=== PATIENT | female | born 1940 | race Caucasian/White ===

== ENCOUNTER 2016-09-20 17:58 | Inpatient (IN) ==
--- NOTE | 2016-09-20 18:03 | Emergency Department Note ---
Disposition Clinical Impression: Diabetes mellitus type 2 in obese, Weakness, ESRD (end stage renal disease) on dialysis, Cough, Hyperkalemia, Frail elderly, Anemia, Hypotension, Pulmonary congestion, Abnormal EKG Disposition: Admitted As Inpatient Referrals: NO,PCP [Non-Partnered Physician] - Forms: ED Satisfaction Letter General Adult HPI - General Chief complaint: ED Upper Respiratory Infection Stated complaint: cough Time Seen by Provider: 09/20/16 18:02 - History of Present Illness HPI Narrative: 76-year-old female reports to the emergency department complaining of coughing and general weakness. She has been seen twice outpatient for the cough, she was placed on antibiotics, she reports they are unhelpful. He patient is elderly, diabetic, is on dialysis, and lives alone at home. She reports she was so weak today she could barely walk. There is no history of unilateral arm or leg weakness or numbness. No slurred speech confusion or syncope. There is no history of coughing of blood or chest pain. She describes some midepigastric abdominal discomfort without vomiting or diarrhea. He patient describes chronic lower extremity swelling. There is no history of bleeding or urinary problems or fever. She does not usually wear oxygen at home. The patient came in by EMS for evaluation. - Related Data Home Medications Medication Instructions Recorded Confirmed Allopurinol [Zyloprim] 100 mg PO QAM 12/30/14 01/10/15 Aspirin 81 mg PO QAM 12/30/14 01/10/15 Insulin NPH Hum/Reg Insulin Hm 20 - 30 unit SQ BID 12/30/14 01/10/15 [Novolin 70-30 100 Unit/ml Vial] Levothyroxine [Synthroid] 125 mcg PO QAM 12/30/14 01/10/15 Pantoprazole Sodium 40 mg PO QAM 12/30/14 01/10/15 Pravastatin Sodium [Pravachol] 80 mg PO QPM 12/30/14 01/10/15 Diazepam [Valium] 5 mg PO QPM 01/01/15 01/10/15 Gabapentin [Neurontin] 600 mg PO QPM 01/01/15 01/10/15 Doxycycline Hyclate [Doxycycline 100 mg PO BID 09/20/16 09/20/16 Hyclate] Sevelamer [Renvela] mg PO AD 09/20/16 levoFLOXacin [Levofloxacin] 500 mg PO Q48H 09/20/16 09/20/16 Allergies Allergy/AdvReac Type Severity Reaction Status Date / Time amitriptyline [From Triavil] Allergy See Verified 01/01/15 13:15 Comments azithromycin [From Zithromax] Allergy Difficulty Verified 01/01/15 13:15 Breathing Cortisone Allergy Rash Verified 01/01/15 13:15 perphenazine [From Triavil] Allergy See Verified 01/01/15 13:15 Comments tape Allergy Rash Uncoded 01/01/15 13:15 All systems ED: reviewed and negative except as stated. Past Medical History - Past Medical History Medical history: Reports: atrial fibrillation, cancer, diabetes, dialysis, GI bleed, hypertension, renal disease, thyroid disease, other Surgical history: Reports: appendectomy, cholecystectomy, hip replacement, hysterectomy, other Psychiatric history: Reports: no psych history - Social History Smoking Status: Unknown if ever smoked Smokeless Tobacco Status: No Alcohol use: Reports: none Drug use: Reports: none Physical Exam - General Limitations: no limitations General appearance: alert, in no apparent distress - Head Head exam: atraumatic, normocephalic, normal inspection - Eye Eye exam: Present: normal appearance, PERRL, EOMI. Absent: scleral icterus, conjunctival injection - ENT ENT exam: normal exam, normal oropharynx, mucous membranes moist, TM's normal bilaterally, normal external ear exam - Neck Neck exam: Present: normal inspection, full ROM, trachea midline. Absent: tenderness - Respiratory Respiratory exam: Present: prolonged expiratory phase. Absent: normal lung sounds bilaterally, respiratory distress, wheezes, accessory muscle use - Cardiovascular Cardiovascular exam: Present: regular rate, normal rhythm, normal heart sounds - Abdominal Exam Abdominal exam: Present: soft, tenderness, normal bowel sounds. Absent: distention, guarding, rebound, rigidity, pulsatile mass Abdominal tenderness: Present: epigastrium, mild - Extremities Exam Extremities exam: Present: full ROM, normal capillary refill, pedal edema. Absent: tenderness, joint swelling, calf tenderness - Expanded Lower Extremity Exam Lower leg exam: Absent: Homans' sign Neurovascular/Tendon exam: Present: normal capillary refill. Absent: motor deficit, sensory deficit, tendon deficit, extremity cold to touch, pallor - Neurological Exam Neurological exam: Present: alert, oriented X3, CN II-XII intact. Absent: motor sensory deficit - Psychiatric Psychiatric exam: Present: normal affect, normal mood - Skin Skin exam: Present: warm, dry, intact, normal color, other (Minor excoriations left leg without evidence of lee cellulitis.). Absent: rash, cyanosis, diaphoresis, erythema, pallor, mottled Course Vital Signs Temperature 98.2 F 09/20/16 17:59 Pulse Rate 52 09/20/16 17:59 Respiratory Rate 18 09/20/16 17:59 Blood Pressure 99/47 09/20/16 17:59 O2 Sat by Pulse Oximetry 98 09/20/16 17:59 Temperature 98.2 F 09/20/16 17:59 Pulse Rate 53 09/20/16 20:21 Respiratory Rate 18 09/20/16 20:48 Blood Pressure 92/60 09/20/16 20:21 O2 Sat by Pulse Oximetry 93 09/20/16 20:48 Oxygen Delivery Oxygen Delivery Room Air Medical Decision Making - MDM Narrative Medical decision making narrative: The patient is elderly and she lives alone at home, she reports she was so weak she can barely walk, he has multiple medical comorbidities including end-stage renal disease on dialysis, diabetes, and atrial fibrillation, it is noted that she had missed her dialysis today. Her potassium levels are 6.3. She was treated for hyperkalemia in the ED. She has seen outpatient providers twice recently. This is her third visit. Based on her age, multiple comorbidities, weakness, and hyperkalemia I thought the patient would be best served being admitted to the hospital. She is currently stable. I reviewed the case with the hospitalist on-call who has accepted the patient to their care. - Lab Data Lab results reviewed: Yes I reviewed the patient's lab results. Result diagrams: 09/20/16 18:48 09/20/16 18:48 Lab Results 09/20/16 09/20/16 09/20/16 Range/Units 18:48 18:48 18:48 WBC 7.9 (4.3-11.1) K/mcL RBC 3.27 L (3.82-4.97) M/mcL Hgb 11.0 L (11.5-15.4) g/dL Hct 34.7 L (35.3-44.9) % MCV 106.1 H (83.0-100.0) fL MCH 33.6 H (28.0-33.3) pg MCHC 31.7 (31.6-35.5) g/dL RDW 13.5 (11.5-14.5) % Plt Count 141 (140-400) K/mcL MPV 10.5 (9.4-12.4) fL Immature Gran % 0.4 (0-4) % Seg Neutrophils % 70.8 % Lymphocytes % 20.4 % Monocytes % 6.1 % Eosinophils % 2.0 % Basophils % 0.3 % Neutrophils # 5.6 (1.6-8.9) K/mcL Lymphocytes # 1.6 (0.6-4.6) K/mcL Monocytes # 0.5 (0.0-1.3) K/mcL Eosinophils # 0.2 (0.0-0.6) K/mcL Basophils # 0.0 (0.0-0.2) K/mcL PT (9.4-12.1) Seconds INR APTT (26.0-36.0) Seconds Sodium 133 L (136-145) mEq/L Potassium 6.3 H (3.5-4.5) mEq/L Chloride 91 L (98-109) mEq/L Carbon Dioxide 25 (19-29) mEq/L BUN 64 H (7-20) mg/dL Creatinine 8.88 H (0.57-1.11) mg/dL Est GFR ( Amer) 5 L (> 60) Est GFR (Non-Af Amer) 4 L (> 60) BUN/Creatinine Ratio 7 (6-26) Glucose 126 H (70-99) mg/dL Calculated Osmolality 296 (280-300) Lactic Acid 1.1 (0.5-2.2) mmol/L Calcium 10.0 (8.6-10.8) mg/dL Magnesium 2.0 (1.6-2.6) mg/dL Total Bilirubin 0.6 (0.2-1.2) mg/dL Direct Bilirubin 0.4 (0.0-0.5) mg/dL Indirect Bilirubin 0.2 (0.0-1.2) mg/dL AST 20 (5-34) Units/L ALT 13 (0-55) Units/L Alkaline Phosphatase 134 H (38-126) Units/L Troponin I (0-0.03) ng/mL C-Reactive Protein 21 H (Less than 5) mg/L B-Natriuretic Peptide (0-100) pg/mL Serum Total Protein 7.5 (6.0-8.3) g/dL Albumin 3.4 L (3.5-5.0) g/dL Globulin 4.1 H (2.4-3.5) g/dL Albumin/Globulin Ratio 0.8 L (1.1-2.2) Lipase 58 (8-78) Units/L 09/20/16 09/20/16 09/20/16 Range/Units 18:48 18:48 18:48 WBC (4.3-11.1) K/mcL RBC (3.82-4.97) M/mcL Hgb (11.5-15.4) g/dL Hct (35.3-44.9) % MCV (83.0-100.0) fL MCH (28.0-33.3) pg MCHC (31.6-35.5) g/dL RDW (11.5-14.5) % Plt Count (140-400) K/mcL MPV (9.4-12.4) fL Immature Gran % (0-4) % Seg Neutrophils % % Lymphocytes % % Monocytes % % Eosinophils % % Basophils % % Neutrophils # (1.6-8.9) K/mcL Lymphocytes # (0.6-4.6) K/mcL Monocytes # (0.0-1.3) K/mcL Eosinophils # (0.0-0.6) K/mcL Basophils # (0.0-0.2) K/mcL PT 12.8 H (9.4-12.1) Seconds INR 1.2 APTT 33.4 (26.0-36.0) Seconds Sodium (136-145) mEq/L Potassium (3.5-4.5) mEq/L Chloride (98-109) mEq/L Carbon Dioxide (19-29) mEq/L BUN (7-20) mg/dL Creatinine (0.57-1.11) mg/dL Est GFR ( Amer) (> 60) Est GFR (Non-Af Amer) (> 60) BUN/Creatinine Ratio (6-26) Glucose (70-99) mg/dL Calculated Osmolality (280-300) Lactic Acid (0.5-2.2) mmol/L Calcium (8.6-10.8) mg/dL Magnesium (1.6-2.6) mg/dL Total Bilirubin (0.2-1.2) mg/dL Direct Bilirubin (0.0-0.5) mg/dL Indirect Bilirubin (0.0-1.2) mg/dL AST (5-34) Units/L ALT (0-55) Units/L Alkaline Phosphatase (38-126) Units/L Troponin I 0.01 (0-0.03) ng/mL C-Reactive Protein (Less than 5) mg/L B-Natriuretic Peptide 868 H (0-100) pg/mL Serum Total Protein (6.0-8.3) g/dL Albumin (3.5-5.0) g/dL Globulin (2.4-3.5) g/dL Albumin/Globulin Ratio (1.1-2.2) Lipase (8-78) Units/L - Radiology Data Radiology results reviewed: Yes I reviewed the patient's radiology results.
[2016-09-20 19:01] LABS: Basophils % 0.3 %; Eosinophils # 0.2 K/mcL (0.0-0.6); Hematocrit 34.7 % (35.3-44.9); Immature Granulocytes % 0.4 % (0-4); Lymphocytes # 1.6 K/mcL (0.6-4.6); Lymphocytes % 20.4 %; Mean Corpuscular HGB Conc 31.7 g/dL (31.6-35.5); Mean Corpuscular Hemoglobin 33.6 pg (28.0-33.3); Mean Corpuscular Volume 106.1 fL (83.0-100.0); Mean Platelet Volume 10.5 fL (9.4-12.4); Monocytes # 0.5 K/mcL (0.0-1.3); Monocytes % 6.1 %; Neutrophils # 5.6 K/mcL (1.6-8.9); Platelet Count 141 K/mcL (140-400); Red Blood Count 3.27 M/mcL (3.82-4.97); Red Cell Distribution Width 13.5 % (11.5-14.5); Segmented Neutrophils % 70.8 %
[2016-09-20 19:07] LABS: INR 1.2; Prothrombin Time 12.8 Seconds (9.4-12.1)
[2016-09-20 19:09] LABS: Activated Partial Thrombo Time 33.4 Seconds (26.0-36.0)
[2016-09-20 19:22] LABS: Albumin 3.4 g/dL (3.5-5.0); Albumin/Globulin Ratio 0.8 (1.1-2.2); Bilirubin,Direct 0.4 mg/dL (0.0-0.5); Bilirubin,Indirect 0.2 mg/dL (0.0-1.2); Bilirubin,Total 0.6 mg/dL (0.2-1.2); Globulin 4.1 g/dL (2.4-3.5); Total Protein 7.5 g/dL (6.0-8.3)
[2016-09-20 19:23] LABS: Potassium 6.3 mEq/L (3.5-4.5)
[2016-09-20] MEDS ORDERED: *HR* Dextrose 50 % in Water (Syg) 50 ML SYRINGE IVP ONE (20:20)
[2016-09-20] MEDS ORDERED: Calcium Gluconate 1,000 MG in D5% in Water 100 ML IVPB ONE (20:20)
[2016-09-20] MEDS ORDERED: Insulin Human Regular 10 UNIT in 0.9 % Sodium Chloride 10 ML IV ONE (20:21)
[2016-09-20] MEDS ORDERED: Albuterol 2.5 MG/3 ML NEBULIZER IH ONE (20:21)
[2016-09-20] MEDS ORDERED: Naloxone 0.4 MG/ML INJ IVP PRN ×2 (20:57→20:59)
--- NOTE | 2016-09-20 22:07 | Internal Med History&Physical ---
Date of Encounter: 09/20/16 Time of Encounter: 22:07 Assessment and Plan (1) Hyperkalemia Current visit: Yes Status: Acute this is related to her ESRD and missed HD, she received medication in the ER, we will follow BMP and nephrology input for HD (2) Productive cough Current visit: Yes Status: Acute pt reports productive cough and other respiratory symptoms ongoing for about a week, she has bilateral lower lobe opacities on CXR that could be fluid vs infiltrate, she has been on 2 different Abx with no improvement in her symptoms , the etiology in this case is most likely viral bronchitis, we will admit for symptom treatment and investigate further, we will check urine strep and legionella antigens, and check out sputum Gram stain and c/s, check procalcitonin, if elevated we will treat with Abx (3) ESRD (end stage renal disease) on dialysis Current visit: Yes Status: Chronic she is on HD MWF, missed today and seems fluid overloaded both clinically and on imaging, we will get nephrology to weigh in regarding HD, (4) Diabetes mellitus type 2 in obese Current visit: Yes Status: Chronic Hx of type 2 DM on insulin at home, most recent A1c was in 02/2016 at 6%, we will do basal bolus regimen here with sliding scale for coverage, will recheck A1c (5) Hypothyroidism Current visit: Yes Status: Chronic we will continue her home regimen Qualifiers: Hypothyroidism type: acquired Qualified Code(s): E03.9 - Hypothyroidism, unspecified (6) HTN (hypertension) Current visit: Yes Status: Chronic not on antihypertensives, we will monitor for now, Qualifiers: Hypertension type: essential hypertension Qualified Code(s): I10 - Essential (primary) hypertension (7) Afib Current visit: Yes Status: Chronic stable, not on systemic anticoagulation nor rate control medications, we will continue to monitor Qualifiers: Atrial fibrillation type: paroxysmal Qualified Code(s): I48.0 - Paroxysmal atrial fibrillation Internal Medicine - H&P: HPI Chief complaint: cough Admitted From: Emergency Dept Plans for Post Hospital Care: Home History of present illness: Ms. Ocampo is a 76 year old female with a history of ESRD on HD MWF/HTN/ AFIB was brought in today for persistent cough. She reports that for the past one week she has been unwell with a productive cough of yellow sputum, sometimes the cough is chesty with no sputum production. She denies sick contacts prior to onset of symptoms but has had somewhat subjective chills, dyspnea and dyspnea on exertion. She denies fever, but admits to nausea that began today as well as poor appetite since her symptoms started. She was initially started on Doxycycline by her PCP but due to persistent symptoms she was switched to levofloxacin this past Sunday but she feels that she is increasingly getting worse with generalized weakness and fatigue so she came in today. She has been so weak that she could not go for her regular dialysis session today so she missed it. Past Med Surg Social Fam HX - Past Medical History Medical history: atrial fibrillation, cancer, diabetes, dialysis, GI bleed, hypertension, renal disease, thyroid disease, other Psychiatric history: no psych history - Past Surgical History Surgical History: appendectomy, cholecystectomy, hip replacement, hysterectomy, other (left AVF creation) - Social History Smoking Status: Never smoker Packs per day: but she has been exposed to second hand smoke from her Smokeless Tobacco Status: No Alcohol use: none Drug use: none Current living situation: Home - Independent Activity Level: Independent ambulation Additional social history: she lives at home with family - Additional Family History Additional family history: both parents are , does not know about the father's medical history but mother had SLE and borderline DM, her half brother has kidney disea but not on dialysis Internal Medicine - H&P: Meds Allopurinol [Zyloprim] 100 mg PO QAM 12/30/14 [History] Aspirin 81 mg PO QAM 12/30/14 [History] Insulin NPH Hum/Reg Insulin Hm [Novolin 70-30 100 Unit/ml Vial] 15 - 30 unit SQ BID 12/30/14 [History] Levothyroxine [Synthroid] 125 mcg PO QAM 12/30/14 [History] Pantoprazole Sodium 40 mg PO BID 12/30/14 [History] Pravastatin Sodium [Pravachol] 80 mg PO QPM 12/30/14 [History] Diazepam [Valium] 5 mg PO HS 01/01/15 [History] Gabapentin [Neurontin] 600 mg PO BID PRN 01/01/15 [History] Doxycycline Hyclate [Doxycycline Hyclate] 100 mg PO BID 09/20/16 [History] Sevelamer [Renvela] mg PO AD 09/20/16 [History] levoFLOXacin [Levofloxacin] 500 mg PO Q48H 09/20/16 [History] Allergies amitriptyline [From Triavil] Allergy (Verified 01/01/15 13:15) See Comments "Paralysis of the face" azithromycin [From Zithromax] Allergy (Verified 01/01/15 13:15) Difficulty Breathing Cortisone Allergy (Verified 01/01/15 13:15) Rash perphenazine [From Triavil] Allergy (Verified 01/01/15 13:15) See Comments "Paralysis of the face" tape Allergy (Uncoded 01/01/15 13:15) Rash All Systems PM: A 10-system review of systems was performed and is negative for pertinent findings except as documented above in the HPI. - Constitutional Vitals: Temp Pulse Resp BP Pulse Ox 98.2 F 53 18 111/58 93 09/20/16 17:59 09/20/16 20:21 09/20/16 21:20 09/20/16 21:20 09/20/16 20:48 PHYSICAL EXAMINATION: GENERAL: Adult female, lying in bed with no sign of distress, Alert, HEENT: NC/AT, EOMI, PERRLA, anicteric sclera, normal conjunctiva, supple, clear nares, moist mucous membranes, clear oropharynx, central uvula RESP: mild basal crackles with transmitted sounds from upper airway, good AE bilaterally, no wheeze CARDIO: Normal hearts sounds; S1 and 2, RRR with no murmurs, no JVD, no ankle edema GI: Soft, full, no tenderness, no organomegaly felt, normal bowel sounds heard MUSCULOSKELETAL: grossly normal movements bilaterally, no deformities noted, no calf tenderness, LUE AVF with thrill and bruit NEUROLOGIC: CN 2-12 intact grossly. No motor/sensory deficit appreciated, PSYCHIATRY: AAO x 3. Mood is fair, SKIN: left swenson abrasions from trauma, liver spots also noted Internal Med - H&P Results - Labs CBC & Chem 7: 09/21/16 04:50 09/20/16 18:48 - EKG Data -: EKG Interpreted by Myself - Diagnostic Studies Chest x-ray Status: image reviewed by me
[2016-09-20] MEDS ORDERED: Albuterol 2.5 MG/3 ML NEBULIZER IH PRN (22:30)
[2016-09-20] MEDS: diazePAM 5 MG TABLET PO SCH (23:02)
[2016-09-20] MEDS: Benzonatate 100 MG CAPSULE PO PRN (23:02)
[2016-09-20] MEDS: Gabapentin 300 MG CAPSULE PO PRN (23:05)
[2016-09-20] MEDS ORDERED: *HR* Dextrose 50 % in Water (Syg) 50 ML SYRINGE IVP PRN (23:36)
[2016-09-20] MEDS ORDERED: Dextrose Gel 15 GM PO PRN ×2 (23:36)
[2016-09-20] MEDS ORDERED: D5% in Water 1,000 ML IVC PRN (23:36)
[2016-09-20] MEDS: Insulin LISPRO 300 UNITS/3 ML VIAL SQ SCH (23:45)
[2016-09-21] MEDS: Insulin LISPRO 300 UNITS/3 ML VIAL SQ SCH ×5 (00:59→21:52)
[2016-09-21 05:41] LABS: Hemoglobin A1C 6.8 %
[2016-09-21 05:43] LABS: Basophils % 0.2 %; Eosinophils # 0.1 K/mcL (0.0-0.6); Eosinophils % 1.6 %; Hemoglobin 10.4 g/dL (11.5-15.4); Immature Granulocytes % 0.5 % (0-4); Lymphocytes # 2.1 K/mcL (0.6-4.6); Lymphocytes % 25.5 %; Mean Corpuscular HGB Conc 31.5 g/dL (31.6-35.5); Mean Corpuscular Hemoglobin 34.1 pg (28.0-33.3); Mean Corpuscular Volume 108.2 fL (83.0-100.0); Mean Platelet Volume 10.8 fL (9.4-12.4); Monocytes # 0.5 K/mcL (0.0-1.3); Monocytes % 5.4 %; Neutrophils # 5.6 K/mcL (1.6-8.9); Platelet Count 146 K/mcL (140-400); Red Blood Count 3.05 M/mcL (3.82-4.97); Red Cell Distribution Width 13.6 % (11.5-14.5); Segmented Neutrophils % 66.8 %
[2016-09-21 05:56] LABS: Calcium 9.7 mg/dL (8.6-10.8); Magnesium 2.1 mg/dL (1.6-2.6); Phosphorous 8.3 mg/dL (2.3-4.7)
[2016-09-21 06:01] LABS: Potassium 5.1 mEq/L (3.5-4.5)
[2016-09-21] MEDS: Gabapentin 300 MG CAPSULE PO PRN (08:50)
[2016-09-21] MEDS: Aspirin 81 MG TAB.CHEW PO SCH (08:50)
[2016-09-21] MEDS: Benzonatate 100 MG CAPSULE PO PRN (08:54)
--- NOTE | 2016-09-21 09:20 | Nephrology Consult Note ---
<Feliberto Kong - Last Filed: 09/21/16 11:47> Date of Encounter: 09/21/16 Time of Encounter: 09:20 Assessment and Plan (1) ESRD (end stage renal disease) on dialysis Current Visit: Yes Status: Chronic Patient with known history of ESRD on dialysis MWF. Missed dialysis yesterday, Sunday. BUN 68, Cr 9.41, Potassium 5.1, Phosphorus 8.3, Calcium 9.7 Plan for Hemodialysis later today. Continue monitoring labs. (2) Hyperkalemia Current Visit: Yes Status: Acute Hyperkalemia in patient with ESRD on dialysis. Missed dialysis yesteday, Sunday Potassium 6.3 on arrival to ED, given 30gm kayexylate. Potassium 5.1 this morning. Hyperkalemia due to ESRD. Plan for Hemodialysis later today. Continue to monitor electrolytes. (3) HTN (hypertension) Current Visit: Yes Status: Chronic Bp 85/51, rate 48. Will have nurse recheck vitals, was 100s/60s when I arrived into the room this morning. Low bp at Baseline. Continue per plan of Hospitalist. 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 Continue per Hospitalist plan. 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 Continue home medication for chronic disease management. Qualifiers: Hypothyroidism type: acquired Qualified Code(s): E03.9 - Hypothyroidism, unspecified History of Present Illness - Reason for Consult Consult date: 09/20/16 end stage renal disease Requesting physician: Rickie Evans - Chief Complaint Productive Cough - History of Present Illness Ms. Ocampo is a 76 year old female with history of ESRD on dialysis (MWF- [facility]), hypertension, paroxysmal afib on aspirin, hypothyroidism, and type II diabetes who presented to the ED yesterday with complaint of feeling unwell and with productive worsening cough for the past week. Patient reports associated mild dyspnea, chest congestion, chills, and nausea. Patient was seen at her PCP office and started on doxycycline. Patient reported no improvement and was then started on Levaquin on Sunday. Patient reported continued worsening of symptoms. Patient did not go to Dialysis yesterday. Reports poor appetite for 1 week. CXR was a low lung volume study, revealed persistent vascular congestion and mild cardiomegaly, no focal lung opacity or consolidation (comparison 09/13/16). WBC 7.9, afebrile, nontachycardic, satting at 98% on room air upon arrival. Potassium 6.3 on arrival, was given kayexylate in ED. Nephrology was consulted for Hemodialysis. Patient reports continued productive cough and dyspnea overnight. Upon entering room the patient looks ill and diaphoretic. Patient continues to report some nausea and chills. Patient denies fevers, changes in vision or hearing, vomiting, chest pain or pressure, palpitations, abdominal pain, changes in bowels or bladder, weakness, or loss of sensation. Past Med Surg Social Fam HX - Past Medical History Medical history: atrial fibrillation (on aspirin, no anticoagulation or rate control), cancer, diabetes, dialysis, GI bleed, hypertension, renal disease, thyroid disease (hypothyroidism), other Psychiatric history: no psych history - Past Surgical History Surgical History: appendectomy, cholecystectomy, hip replacement, hysterectomy, other (left AVF creation) - Social History Smoking Status: Never smoker Packs per day: but she has been exposed to second hand smoke from her Smokeless Tobacco Status: No Alcohol use: none Drug use: none Medications and Allergies Allopurinol [Zyloprim] 100 mg PO QAM 12/30/14 [History] Aspirin 81 mg PO QAM 12/30/14 [History] Insulin NPH Hum/Reg Insulin Hm [Novolin 70-30 100 Unit/ml Vial] 15 - 30 unit SQ BID 12/30/14 [History] Levothyroxine [Synthroid] 125 mcg PO QAM 12/30/14 [History] Pantoprazole Sodium 40 mg PO BID 12/30/14 [History] Pravastatin Sodium [Pravachol] 80 mg PO QPM 12/30/14 [History] Diazepam [Valium] 5 mg PO HS 01/01/15 [History] Gabapentin [Neurontin] 600 mg PO BID PRN 01/01/15 [History] Doxycycline Hyclate [Doxycycline Hyclate] 100 mg PO BID 09/20/16 [History] Sevelamer [Renvela] 1,600 mg PO TIDWM 09/20/16 [History] levoFLOXacin [Levofloxacin] 500 mg PO Q48H 09/20/16 [History] Allergies amitriptyline [From Triavil] Allergy (Verified 01/01/15 13:15) See Comments "Paralysis of the face" azithromycin [From Zithromax] Allergy (Verified 01/01/15 13:15) Difficulty Breathing Cortisone Allergy (Verified 01/01/15 13:15) Rash perphenazine [From Triavil] Allergy (Verified 01/01/15 13:15) See Comments "Paralysis of the face" tape Allergy (Uncoded 01/01/15 13:15) Rash Review of Systems Constitutional: chills, fatigue, malaise, weakness, no fever(s), no headache(s) , no night sweats Nose, mouth and throat: as per HPI, no dysphagia, no headache(s), no nasal congestion, no nasal discharge, no neck pain, no sore throat Cardiovascular: as per HPI, dyspnea, no chest pain, no chest pain at rest, no diaphoresis, no edema, no lightheadedness, no palpitations, no pedal edema Respiratory: cough, dyspnea, chest congestion, excessive phlegm production, change in phlegm color, no wheezing, no pain on inspiration, no pain with cough Gastrointestinal: as per HPI, nausea, no abdominal pain, no constipation, no diarrhea, no heartburn, no vomiting Musculoskeletal: as per HPI, no abnormal gait, no neck pain Integumentary: as per HPI, no lesions, no rash, no unusual bruising Neurological: as per HPI, weakness, no abnormal gait, no abnormal hearing, no abnormal speech, no confusion, no dizziness, no headache(s), no syncope Endocrine: as per HPI, fatigue, no palpitations, no polydipsia, no polyphagia, no polyuria Exam - Vital Signs Vital signs: Initial Vital Signs Temp Pulse Resp BP Pulse Ox 98.2 F 52 18 99/47 98 09/20/16 17:59 09/20/16 17:59 09/20/16 17:59 09/20/16 17:59 09/20/16 17:59 Vital Signs - Last 8 Hours Temp Pulse Resp BP Pulse Ox 09/21/16 08:03 98.3 F 48 14 85/51 94 Intake and Output 09/20/16 09/21/16 09/21/16 23:59 07:59 15:59 Intake Total 0 / 0 Output Total 0 / 0 Balance 0 / 0 Intake: Oral 0 / 0 Output: Urine 0 / 0 Other: Stool Size Small Stool Consistency soft formed Stool Color Brown # Voids 1 # Bowel Movements 1 Blood Glucose* 119 114 - General Appearance General appearance: well-developed, appears started age, obese, moderate distress Exam: diaphoretic EENT: PERRL, mucous membranes dry Neck: no JVD, no thyromegaly, no carotid bruit, supple Respiratory: course breath sounds, rhonchi Cardiology: no murmurs, no edema, regular rate, irregular rhythm, normal S1, normal S2 Gastrointestinal: hypoactive bowel sounds, no tenderness, no guarding, obese Integumentary: no rash Additional Comments: warm, diaphroetic Neurologic: no focal deficit, alert and oriented x3, strength 5/5, CN 3-12 intact Musculoskeletal: no deformities, no erythema, no cyanosis, no clubbing Psychiatric: cooperative Results - Lab Results 09/21/16 04:50 09/21/16 04:50 Most recent lab results Calcium 9.7 mg/dL (8.6-10.8) 09/21/16 04:50 Phosphorus 8.3 mg/dL (2.3-4.7) H 09/21/16 04:50 Magnesium 2.1 mg/dL (1.6-2.6) 09/21/16 04:50 Consult Discharge Plan - Plan Referrals: Damaso Francisco DO [Primary Care Provider] - 09/28/16 9:30 am (Web requested 09/20/16) <Ramesh Singleton - Last Filed: 09/22/16 06:20> Date of Encounter: 09/21/16 Exam - Vital Signs Vital signs: Initial Vital Signs Temp Pulse Resp BP Pulse Ox 98.2 F 52 18 99/47 98 09/20/16 17:59 09/20/16 17:59 09/20/16 17:59 09/20/16 17:59 09/20/16 17:59 Vital Signs - Last 8 Hours Temp Pulse Resp BP Pulse Ox 09/22/16 04:21 97.8 F 58 19 105/54 96 09/22/16 00:12 97.6 F 56 19 93/47 92 Intake and Output 09/21/16 09/21/16 09/22/16 15:59 23:59 07:59 Intake Total 940 / 940 30 / 30 Output Total 2099 / 2099 Balance 940 / 940 -2069 / Intake: Oral 340 / 340 30 / 30 Intake, Rinseback and 600 / 600 Flushes Output: Urine 0 / 0 Total Dialysis Output 2099 Other: Meal Lunch Percent of Meal Consumed 25% Weight 102.5 kg Blood Glucose* 115 123 Hemodialysis Net Fluid 517 1500 Removed (mL) Patient Weight 09/22/16 23:59 Weight 102.5 kg Results - Lab Results 09/21/16 04:50 09/21/16 04:50 Most recent lab results Calcium 9.7 mg/dL (8.6-10.8) 09/21/16 04:50 Phosphorus 8.3 mg/dL (2.3-4.7) H 09/21/16 04:50 Magnesium 2.1 mg/dL (1.6-2.6) 09/21/16 04:50 - Attending Attestation I examined this patient and my medical decision-making was reviewed with the PINION STAKER/PA/Advanced Practice Nurse/Resident Physician. I agree with the documented findings, disposition and treatment plan as described except to the extent set forth below. Pt seen and examined well known to me from managing her ESRD with HD admitted with generalized malaise along with productive cough despite therapy. She also missed HD yesterday due to feeling "bad". On presentation her potassium was above 6 requiring kayexalate. Will initiate HD today for 2 hrs with 2k bath and goal UF 1-2kg as tolerated. Will dose with albumin at the start given her history of chronic hypotension. Patient was counselled on the dangers of missing HD treatments including
--- NOTE | 2016-09-21 10:50 | Internal Med Progress Note ---
Date of Encounter: 09/21/16 Time of Encounter: 10:47 - Assessment and plan (1) Dyspnea Current Visit: Yes Status: Acute Assessment and plan: pt says she was told she has acute bronchitis with respiratory symptoms ongoing for about a week, she was seen OP and took 1 day of levoflox. reports no imporvement, CXR shows vascular congestion. no signs of pneumonia or infiltrates, the symptoms may be 2/2 bronchitis along with vascular congestion (ESRD -- missed HD and possible diastolic CHF--moderate DD on last ECHO) will undergo HD today, will repeat CXR tomm, follow procalcitonic level. has no fever or leucocytosis, no indication for antibiotics at this time. Qualifiers: Dyspnea type: unspecified Qualified Code(s): R06.00 - Dyspnea, unspecified (2) ESRD (end stage renal disease) on dialysis Current Visit: Yes Status: Chronic Assessment and plan: renal on board, HD today. (3) Hypothyroidism Current Visit: Yes Status: Chronic Assessment and plan: continue home meds Qualifiers: Hypothyroidism type: acquired Qualified Code(s): E03.9 - Hypothyroidism, unspecified (4) Hyperkalemia Current Visit: Yes Status: Acute Assessment and plan: repeat today is 5.1, 2/2 missed HD. no EKG changes, will continu eto monitor after HD. (5) HTN (hypertension) Current Visit: Yes Status: Chronic Assessment and plan: BP borderline low. continue to monitor. Qualifiers: Hypertension type: essential hypertension Qualified Code(s): I10 - Essential (primary) hypertension (6) Afib Current Visit: Yes Status: Chronic Assessment and plan: stable, not on systemic anticoagulation nor rate control medications, we will continue to monitor Qualifiers: Atrial fibrillation type: paroxysmal Qualified Code(s): I48.0 - Paroxysmal atrial fibrillation (7) Diabetes Current Visit: Yes Status: Acute Qualifiers: Diabetes mellitus type: type 2 Diabetes mellitus complication status: with kidney complications Diabetes mellitus complication detail: with chronic kidney disease Diabetes mellitus buttermaker continuous churn insulin use: with buttermaker continuous churn use Chronic kidney disease stage: on chronic dialysis Qualified Code(s): E11.22 - Type 2 diabetes mellitus with diabetic chronic kidney disease; N18.6 - End stage renal disease; Z79.4 - FPC (current) use of insulin; Z99.2 - Dependence on renal dialysis - Subjective Interval history: Patient seen at the bedside, reports feeling weak and that she has chronic cough. Denies any chest pain, has exertional dyspnea. Missed hemodialysis yesterday, renal has been consulted. Plan for hemodialysis today. - Constitutional Vitals: Temp Pulse Resp BP Pulse Ox 98.3 F 48 14 85/51 94 09/21/16 08:03 09/21/16 08:03 09/21/16 08:03 09/21/16 08:03 09/21/16 08:03 General appearance: Present: A&O X 3, no acute distress Exam: GENERAL: Adult female, lying in bed with no sign of distress, Alert, HEENT: NC/AT, EOMI, PERRLA, anicteric sclera, normal conjunctiva, supple, clear nares, moist mucous membranes, clear oropharynx, central uvula RESP: b/l basal coarse crackles and conducted sounds, no wheezing. CARDIO: Normal hearts sounds; S1 and 2, RRR with no murmurs, no JVD, no ankle edema GI: Soft, full, no tenderness, no organomegaly felt, normal bowel sounds heard MUSCULOSKELETAL: grossly normal movements bilaterally, no deformities noted, no calf tenderness, LUE AVF with thrill and bruit NEUROLOGIC: CN 2-12 intact grossly. No motor/sensory deficit appreciated, PSYCHIATRY: AAO x 3. Mood is fair, SKIN: left swenson abrasions from trauma, Internal Medicine: Result - Labs CBC & Chem 7: 09/21/16 04:50 09/21/16 04:50 Labs: Short CBC 09/21/16 Range/Units 04:50 WBC 8.3 (4.3-11.1) K/mcL Hgb 10.4 L (11.5-15.4) g/dL Hct 33.0 L (35.3-44.9) % Plt Count 146 (140-400) K/mcL Neutrophils # 5.6 (1.6-8.9) K/mcL BMP 09/21/16 04:50 Sodium 133 L Potassium 5.1 H D Chloride 90 L Carbon Dioxide 19 BUN 68 H Creatinine 9.41 H Glucose 109 H Calcium 9.7 - ABG Interpretation ABG results: PT/INR, D-dimer PT 12.8 Seconds (9.4-12.1) H 09/20/16 18:48 Consult Discharge Plan - Plan Referrals: Damaso Francisco DO [Primary Care Provider] - 09/28/16 9:30 am (Web requested 09/20/16)
[2016-09-21] MEDS ORDERED: Albumin 25% 12.5gm/50mL 12.5 GM/50 ML IV.SOLN IVPB PRN (11:41)
[2016-09-21] MEDS ORDERED: 0.9 % Sodium Chloride 250 ML IVC PRN (11:41)
[2016-09-21] MEDS ORDERED: 0.9 % Sodium Chloride 1,000 ML PRIME SCH (11:45)
[2016-09-21] MEDS ORDERED: Albumin 25% 12.5gm/50mL 25.0 GM/100 ML IV.SOLN ONE (11:52)
[2016-09-21] MEDS ORDERED: 0.9 % Sodium Chloride 2,000 ML ONE (11:53)
--- NOTE | 2016-09-21 15:31 | Electrocardiograph Report ---
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
[2016-09-21 16:21] LABS: Hepatitis B Surface Antigen Nonreactive (Nonreactive)
[2016-09-21] MEDS: *HR* Heparin 5,000 UNIT/ML VIAL SQ SCH ×2 (16:47→21:42)
[2016-09-21 19:45] LABS: Adenovirus Not Detected (Not Detect); Coronavirus 229E Not Detected (Not Detect); Coronavirus HKU1 Not Detected (Not Detect); Coronavirus NL63 Not Detected (Not Detect); Coronavirus OC43 Not Detected (Not Detect); Human Metapneumovirus Not Detected (Not Detect); Human Rhinovirus/Enterovirus Not Detected (Not Detect); Influenza A Subtype 2009 H1 Not Detected (Not Detect); Influenza A Untypeable Not Detected (Not Detect); Influenza B Not Detected (Not Detect); Parainfluenza Virus 1 Not Detected (Not Detect); Parainfluenza Virus 2 Not Detected (Not Detect); Parainfluenza Virus 3 ***DETECTED*** (Not Detect)
[2016-09-21 19:46] LABS: Bordetella Pertussis Not Detected (Not Detect); Chlamydophila pneumoniae Not Detected (Not Detect); Mycoplasma pneumoniae Not Detected (Not Detect); Parainfluenza Virus 4 Not Detected (Not Detect); Respiratory Syncytial Virus Not Detected (Not Detect)
[2016-09-21] MEDS ORDERED: Gabapentin 300 MG CAPSULE PO SCH (21:00)
[2016-09-21] MEDS: diazePAM 5 MG TABLET PO SCH (21:42)
[2016-09-22] MEDS: Benzonatate 100 MG CAPSULE PO PRN (04:02)
[2016-09-22] MEDS: Aspirin 81 MG TAB.CHEW PO SCH (06:18)
[2016-09-22] MEDS: *HR* Heparin 5,000 UNIT/ML VIAL SQ SCH ×2 (06:19→16:58)
[2016-09-22] MEDS ORDERED: Albumin 25% 12.5gm/50mL 12.5 GM/50 ML IV.SOLN IVPB PRN (07:00)
[2016-09-22] MEDS ORDERED: 0.9 % Sodium Chloride 250 ML IVC PRN (07:00)
--- NOTE | 2016-09-22 07:53 | Nephrology Progress Note ---
Date of Encounter: 09/22/16 Time of Encounter: 07:52 - Assessment and Plan (1) ESRD (end stage renal disease) on dialysis Current Visit: Yes Status: Chronic Patient with known history of ESRD on dialysis MWF. Underwent partial Hemodialysis yesterday. BUN 47, Cr 7.41, Potassium 4.3 Plan for Hemodialysis with albumin today. Okay for discharge today. (2) Hyperkalemia Current Visit: Yes Status: Resolved Resolved. Potassium 4.3 this morning. (3) HTN (hypertension) Current Visit: Yes Status: Chronic Bp 98/45, rate 60. Low normal baseline. Continue monitoring. Continue per plan of hospitalist. Qualifiers: Hypertension type: essential hypertension Qualified Code(s): I10 - Essential (primary) hypertension (4) Diabetes Current Visit: Yes Status: Acute Known history of type II diabetes on retirement insulin and with ESRD on dialysis. Glucose 140 Continue monitor labs. Continue per Hospitalist plan. 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 Continues to report cough, chest congestion, and mild shortness of breath. Patient denies fevers, chills, sweats (though appears diaphoretic), headaches, nausea, vomiting, chest pain, abdominal pain, changes in bowels or bladder, weakness, or loss of sensation. Patient underwent partial hemodialysis yesterday, parainfluenza positive. Objective - Vital Signs Vital signs: Vital Signs Temp Pulse Resp BP Pulse Ox 09/22/16 07:07 98.2 F 60 20 98/45 92 09/22/16 04:21 97.8 F 58 19 105/54 96 09/22/16 00:12 97.6 F 56 19 93/47 92 09/21/16 21:30 97.7 F 66 15 87/48 94 09/21/16 17:35 97.9 F 18 109/52 09/21/16 17:20 99/41 05/11/17 17:05 101/49 09/21/16 16:45 101/42 09/21/16 16:35 98/43 09/21/16 16:20 101/40 09/21/16 16:05 107/53 09/21/16 15:50 106/62 09/21/16 15:35 126/52 09/21/16 15:20 98.1 F 18 106/40 09/21/16 11:24 97.7 F 46 16 86/55 96 09/21/16 08:03 98.3 F 48 14 85/51 94 Intake and Output 09/21/16 09/21/16 09/22/16 15:59 23:59 07:59 Intake Total 940 / 940 30 / 30 Output Total 2099 / 2099 Balance 940 / 940 -2069 / -2069 Intake: Oral 340 / 340 30 / 30 Intake, Rinseback and 600 / 600 Flushes Output: Urine 0 / 0 Total Dialysis Output 2099 Other: Meal Lunch Percent of Meal Consumed 25% Weight 102.5 kg Blood Glucose* 115 123 150 Hemodialysis Net Fluid 517 1500 Removed (mL) Patient Weight 09/22/16 23:59 Weight 102.5 kg - General Appearance General appearance: Present: well-developed, well-nourished, appears started age , obese Exam: no acute distress, diaphoretic EENT: Present: PERRL, mucous membranes moist, hearing intact, vision intact Neck: Present: no JVD, no thyromegaly, no carotid bruit, supple Respiratory: Present: course breath sounds, rhonchi Cardiology: Present: no murmurs, no edema, regular rate, irregular rhythm, normal S1, normal S2 Dialysis Vascular Access: Arteriovenous Fistula (LUE) thrill: Yes bruit: Yes Gastrointestinal: Present: normoactive bowel sounds, no tenderness, no guarding Integumentary: Present: no rash Additional Comments: warm, diaphoretic Neurologic: Present: no focal deficit, alert and oriented x3, strength 5/5, CN 3 -12 intact Musculoskeletal: Present: no deformities, no erythema, no cyanosis, no clubbing Psychiatric: Present: mood/affect appropriate, cooperative - Lab 09/22/16 08:19 09/22/16 08:19 Most recent lab results Calcium 9.7 mg/dL (8.6-10.8) 09/21/16 04:50 Phosphorus 8.3 mg/dL (2.3-4.7) H 09/21/16 04:50 Magnesium 2.1 mg/dL (1.6-2.6) 09/21/16 04:50 Consult Discharge Plan - Plan Instructions: Dextromethorphan (By mouth), Diabetes Mellitus Type 2 in Adults ( DC), Weakness (GEN) Referrals: Damaso Francisco DO [Primary Care Provider] - 09/28/16 9:30 am (Web requested 09/20/16) Prescriptions: GuaiFENesin/Dextromethorphan [Robitussin/Dm] 10 ml PO Q6HR PRN 10 Days PRN Reason: Cough
[2016-09-22] MEDS: Insulin LISPRO 300 UNITS/3 ML VIAL SQ SCH ×3 (08:12→17:36)
[2016-09-22 08:27] LABS: Basophils % 0.2 %; Eosinophils # 0.2 K/mcL (0.0-0.6); Eosinophils % 2.3 %; Hematocrit 32.3 % (35.3-44.9); Hemoglobin 10.1 g/dL (11.5-15.4); Immature Granulocytes % 0.4 % (0-4); Lymphocytes # 1.4 K/mcL (0.6-4.6); Mean Corpuscular HGB Conc 31.3 g/dL (31.6-35.5); Mean Corpuscular Hemoglobin 34.1 pg (28.0-33.3); Mean Corpuscular Volume 109.1 fL (83.0-100.0); Mean Platelet Volume 10.6 fL (9.4-12.4); Monocytes # 0.4 K/mcL (0.0-1.3); Monocytes % 5.1 %; Neutrophils # 6.3 K/mcL (1.6-8.9); Platelet Count 135 K/mcL (140-400); Red Blood Count 2.96 M/mcL (3.82-4.97); Red Cell Distribution Width 13.6 % (11.5-14.5)
[2016-09-22 08:39] LABS: Calcium 9.8 mg/dL (8.6-10.8); Potassium 4.3 mEq/L (3.5-4.5)
[2016-09-22 08:40] LABS: Hepatitis B Surface Antibody 185.88 mIU/mL
[2016-09-22] MEDS ORDERED: GuaiFENesin/Dextromethorphan TABLET PO SCH (09:00)
--- NOTE | 2016-09-22 10:08 | Discharge Summary ---
Date of Encounter: 09/22/16 Time of Encounter: 10:06 - Discharge Diagnosis (1) Dyspnea Priority: Primary Status: Acute Qualifiers: Dyspnea type: unspecified Qualified Code(s): R06.00 - Dyspnea, unspecified (2) ESRD (end stage renal disease) on dialysis Priority: Secondary Status: Chronic (3) Hypothyroidism Priority: Secondary Status: Chronic Qualifiers: Hypothyroidism type: acquired Qualified Code(s): E03.9 - Hypothyroidism, unspecified (4) Hyperkalemia Priority: Primary Status: Resolved (5) HTN (hypertension) Priority: Secondary Status: Chronic Qualifiers: Hypertension type: essential hypertension Qualified Code(s): I10 - Essential (primary) hypertension (6) Afib Priority: Secondary Status: Chronic Qualifiers: Atrial fibrillation type: paroxysmal Qualified Code(s): I48.0 - Paroxysmal atrial fibrillation (7) Diabetes Priority: Secondary Status: Acute Qualifiers: Diabetes mellitus type: type 2 Diabetes mellitus complication status: with kidney complications Diabetes mellitus complication detail: with chronic kidney disease Diabetes mellitus fdc insulin use: with fdc use Chronic kidney disease stage: on chronic dialysis Qualified Code(s): E11.22 - Type 2 diabetes mellitus with diabetic chronic kidney disease; N18.6 - End stage renal disease; Z79.4 - 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 insulin; Z99.2 - Dependence on renal dialysis - Discharge Medications Prescriptions: GuaiFENesin/Dextromethorphan [Robitussin/Dm] 10 ml PO Q6HR PRN 10 Days PRN Reason: Cough Home Medications: Allopurinol [Zyloprim] 100 mg PO QAM 12/30/14 [History] Aspirin 81 mg PO QAM 12/30/14 [History] Insulin NPH Hum/Reg Insulin Hm [Novolin 70-30 100 Unit/ml Vial] 15 - 30 unit SQ BID 12/30/14 [History] Levothyroxine [Synthroid] 125 mcg PO QAM 12/30/14 [History] Pantoprazole Sodium 40 mg PO BID 12/30/14 [History] Pravastatin Sodium [Pravachol] 80 mg PO QPM 12/30/14 [History] Diazepam [Valium] 5 mg PO HS 01/01/15 [History] Gabapentin [Neurontin] 600 mg PO BID PRN 01/01/15 [History] Sevelamer [Renvela] 1,600 mg PO TIDWM 09/20/16 [History] GuaiFENesin/Dextromethorphan [Robitussin/Dm] 10 ml PO Q6HR PRN 10 Days 09/22/16 [Rx] Allergies/Adverse Reactions: Allergies amitriptyline [From Triavil] Allergy (Verified 01/01/15 13:15) See Comments "Paralysis of the face" azithromycin [From Zithromax] Allergy (Verified 01/01/15 13:15) Difficulty Breathing Cortisone Allergy (Verified 01/01/15 13:15) Rash perphenazine [From Triavil] Allergy (Verified 01/01/15 13:15) See Comments "Paralysis of the face" tape Allergy (Uncoded 01/01/15 13:15) Rash Date of admission: 09/21/16 00:28 Primary care physician: Damaso Francisco, Consults: 09/21/16 11:45 Consult to Dialysis [CONS] ONCE 09/22/16 07:00 Consult to Dialysis [CONS] ONCE 09/23/16 07:00 Consult to Dialysis [CONS] ONCE Discharging clinician: Kwan Riley Anticipated date of discharge: 09/22/16 - Patient Status Disposition: Home Health Service Condition: Fair Functional capacity at discharge: independent ambulation Overall status at discharge: patient is back to baseline - Discharge Instructions Instructions: Dextromethorphan (By mouth), Diabetes Mellitus Type 2 in Adults ( DC), Weakness (GEN) Follow Up With: Damaso Francisco DO [Primary Care Provider] - 09/28/16 9:30 am (Web requested 09/20/16) - Diet and Activity Activity: resume usual activities as tolerated Diet: advance to your usual diet Interval History: Ms. Ocampo is a 76 year old female with a history of ESRD on HD MWF/HTN/ AFIB presented to ED for persistent cough and generalized weakness, missed HD as she was too weak to go to HD. she was admitted and underwent HD that day, nephrology was consulted and followed inpatient. viral respiratory panel was checked and it is positive for para influenzae. CXR does not show any pneumonia or infiltrates. she improved clinically and is being dc today in stable condition. she will follow up with renal as OP for maintenance HD. Hospital course: Ms. Ocampo is a 76 year old female Time spent discussing smoking cessation with patient: more than 10 minutes - Time Spent with Patient Total time spent providing and/or coordinating discharge services: Greater than 30 minutes - Constitutional Vitals: Temp Pulse Resp BP Pulse Ox 98.2 F 60 20 98/45 92 09/22/16 07:07 09/22/16 07:07 09/22/16 07:07 09/22/16 07:07 09/22/16 07:07 General appearance: Present: A&O X 3, no acute distress Exam: GENERAL: Adult female, lying in bed with no sign of distress, Alert, HEENT: NC/AT, EOMI, PERRLA, anicteric sclera, normal conjunctiva, supple, clear nares, moist mucous membranes, clear oropharynx, central uvula RESP: good AE bilaterally, no wheeze, crepitation. CARDIO: Normal hearts sounds; S1 and 2, RRR with no murmurs, no JVD, no ankle edema GI: Soft, full, no tenderness, no organomegaly felt, normal bowel sounds heard MUSCULOSKELETAL: grossly normal movements bilaterally, no deformities noted, no calf tenderness, LUE AVF with thrill and bruit NEUROLOGIC: CN 2-12 intact grossly. No motor/sensory deficit appreciated, PSYCHIATRY: AAO x 3. Mood is fair, SKIN: left swenson abrasions from trauma, liver spots also noted
--- NOTE | 2016-09-22 10:20 | Nephrology Progress Note ---
Date of Encounter: 09/22/16 Time of Encounter: 09:50 - Assessment and Plan (1) ESRD (end stage renal disease) on dialysis Current Visit: Yes Status: Chronic HD today for fluid removal and clearance. Targeting 2-3 kg over 3hr instead of a shorter treatment d/t the pt's pronounced chronic hypotension. Will have to utilize Albumin 25mg IV while on HD today. Cough/URI as per primary Agreeable with D/C today. (2) Hyperkalemia Current Visit: Yes Status: Resolved Improving with HD (3) Productive cough Current Visit: Yes Status: Acute As per primary (4) Anemia in CKD (chronic kidney disease) Current Visit: No Status: Chronic Goal Hgb is 10-11. Subjective Principal diagnosis: URI Interval history: Pt was S/E. She did not affirm CP, but has an ongoing cough with recent findings of Influenza per pt. She did not affirm N/V/D. Objective - Vital Signs Vital signs: Vital Signs Temp Pulse Resp BP Pulse Ox 09/22/16 07:07 98.2 F 60 20 98/45 92 09/22/16 04:21 97.8 F 58 19 105/54 96 09/22/16 00:12 97.6 F 56 19 93/47 92 09/21/16 21:30 97.7 F 66 15 87/48 94 09/21/16 17:35 97.9 F 18 109/52 09/21/16 17:20 99/41 09/21/16 17:05 101/49 09/21/16 16:45 101/42 09/21/16 16:35 98/43 09/21/16 16:20 101/40 09/21/16 16:05 107/53 09/21/16 15:50 106/62 09/21/16 15:35 126/52 09/21/16 15:20 98.1 F 18 106/40 09/21/16 11:24 97.7 F 46 16 86/55 96 Intake and Output 09/21/16 09/22/16 09/22/16 23:59 07:59 15:59 Intake Total 30 / 30 290 / 290 Output Total 2099 0 / 0 Balance -2069 / 290 / 290 Intake: Oral 30 / 30 290 / 290 Output: Urine 0 / 0 0 / 0 Total Dialysis Output 2099 Other: Meal Breakfast Percent of Meal Consumed 100% Stool Size Small Stool Consistency formed Stool Color Brown # Bowel Movements 1 Weight 102.5 kg Blood Glucose* 123 150 Hemodialysis Net Fluid 1500 Removed (mL) Patient Weight 09/22/16 23:59 Weight 102.5 kg - General Appearance General appearance: Present: well-developed, well-nourished, appears started age , obese EENT: Present: ATNC, PERRL, mucous membranes moist Neck: Present: supple Respiratory: Present: clear Cardiology: Present: edema (trace b/l LE pedal edema), regular rate, regular rhythm, normal S1, normal S2 Dialysis Vascular Access: Arteriovenous Fistula (LUE) thrill: Yes bruit: Yes Gastrointestinal: Present: normoactive bowel sounds, no tenderness, no guarding Integumentary: Present: no rash, warm and dry Neurologic: Present: no focal deficit, no asterixis, alert and oriented x3 Musculoskeletal: Present: no deformities, no erythema Psychiatric: Present: mood/affect appropriate, cooperative - Lab 09/22/16 08:19 09/22/16 08:19 Most recent lab results Calcium 9.8 mg/dL (8.6-10.8) 09/22/16 08:19 Phosphorus 8.3 mg/dL (2.3-4.7) H 09/21/16 04:50 Magnesium 2.1 mg/dL (1.6-2.6) 09/21/16 04:50 Consult Discharge Plan - Plan Instructions: Dextromethorphan (By mouth), Diabetes Mellitus Type 2 in Adults ( DC), Weakness (GEN) Referrals: Damaso Francisco DO [Primary Care Provider] - 09/28/16 9:30 am (Web requested 09/20/16) Prescriptions: GuaiFENesin/Dextromethorphan [Robitussin/Dm] 10 ml PO Q6HR PRN 10 Days PRN Reason: Cough
--- NOTE | 2016-09-22 12:03 | Physician Discharge Referral ---
Home Health/Hosp Referral Info Transfer to: Home Health Attending Provider: silvia ramirez - Diagnosis (1) Dyspnea Status: Acute (2) ESRD (end stage renal disease) on dialysis Status: Chronic (3) Hypothyroidism Status: Chronic (4) Hyperkalemia Status: Resolved (5) HTN (hypertension) Status: Chronic (6) Afib Status: Chronic (7) Diabetes Status: Acute - Respiratory Orders Smoking Cessation: Smoking cessation has been advised. For more information, call the [employer] Tobacco Quit Line at 6-369-GYQY-NOW. - Diet/Nutrition Diet/Nutrition Orders: Regular - Activity Activity Orders: Up ad maria de jesus - Services Needed Following services are medically necessary services: Nursing, Home Health Aide, Physical Therapy, Occupational Therapy - Transfer Medications Prescriptions: GuaiFENesin/Dextromethorphan [Robitussin/Dm] 10 ml PO Q6HR PRN 10 Days PRN Reason: Cough Home Medications: Allopurinol [Zyloprim] 100 mg PO QAM 12/30/14 [History] Aspirin 81 mg PO QAM 12/30/14 [History] Insulin NPH Hum/Reg Insulin Hm [Novolin 70-30 100 Unit/ml Vial] 15 - 30 unit SQ BID 12/30/14 [History] Levothyroxine [Synthroid] 125 mcg PO QAM 12/30/14 [History] Pantoprazole Sodium 40 mg PO BID 12/30/14 [History] Pravastatin Sodium [Pravachol] 80 mg PO QPM 12/30/14 [History] Diazepam [Valium] 5 mg PO HS 01/01/15 [History] Gabapentin [Neurontin] 600 mg PO BID PRN 01/01/15 [History] Sevelamer [Renvela] 1,600 mg PO TIDWM 09/20/16 [History] GuaiFENesin/Dextromethorphan [Robitussin/Dm] 10 ml PO Q6HR PRN 10 Days 09/22/16 [Rx] Allergies/Adverse Reactions: Allergies amitriptyline [From Triavil] Allergy (Verified 01/01/15 13:15) See Comments "Paralysis of the face" azithromycin [From Zithromax] Allergy (Verified 01/01/15 13:15) Difficulty Breathing Cortisone Allergy (Verified 01/01/15 13:15) Rash perphenazine [From Triavil] Allergy (Verified 01/01/15 13:15) See Comments "Paralysis of the face" tape Allergy (Uncoded 01/01/15 13:15) Rash Certification: Further, I certify that my clinical findings support that this patient is homebound (i.e. absences from home require considerable and taxing effort and are for medical reasons or adventist services or infrequently or short duration when for other reasons) because: Homebound Reason: Patient requires assistance of a person or device to safely leave home Attestation: My signature below is to certify that this patient is under my care and that I, or nurse practitioner, or a physician's assistant office manager working with me, has a face-to -face encounter with this patient.
[2016-09-22] MEDS ORDERED: 0.9 % Sodium Chloride 2,000 ML ONE (15:01)
[2016-09-22 17:09] VITALS: BP 119/66
== END 2016-09-22 20:24 | disposition home health service (06) | DRG 640 ==
LOC: 2ANU 17:58 → EMEROO 17:58 → 2ANU 21:21
PROVIDERS: ADMIT Internal Medicine; ATTEND Internal Medicine

== ENCOUNTER 2017-03-30 17:40 | Inpatient (IN) ==
[2017-03-30] MEDS ORDERED: 0.9 % Sodium Chloride 500 ML IVC ONE ×2 (18:19→19:09)
[2017-03-30] MEDS ORDERED: D5 IVPB ONE (18:20)
[2017-03-30] MEDS ORDERED: Vancomycin 750 MG in D5% in Water 250 ML IVPB ONE ×2 (18:20→18:52)
[2017-03-30] MEDS ORDERED: TAZOBACTAM IVPB ONE (18:20)
[2017-03-30] MEDS ORDERED: PIPERACILLIN IVPB ONE (18:20)
[2017-03-30] MEDS ORDERED: WATER IVPB ONE (18:20)
[2017-03-30 18:46] LABS: Basophils % 0.2 %; Eosinophils # 0.1 K/mcL (0.0-0.6); Eosinophils % 0.5 %; Hematocrit 35.2 % (35.3-44.9); Hemoglobin 10.6 g/dL (11.5-15.4); Immature Granulocytes % 0.6 % (0-4); Lymphocytes # 0.4 K/mcL (0.6-4.6); Lymphocytes % 2.8 %; Mean Corpuscular HGB Conc 30.1 g/dL (31.6-35.5); Mean Corpuscular Hemoglobin 32.3 pg (28.0-33.3); Mean Corpuscular Volume 107.3 fL (83.0-100.0); Mean Platelet Volume 10.5 fL (9.4-12.4); Monocytes # 0.8 K/mcL (0.0-1.3); Monocytes % 5.3 %; Neutrophils # 13.4 K/mcL (1.6-8.9); Platelet Count 180 K/mcL (140-400); Red Blood Count 3.28 M/mcL (3.82-4.97); Red Cell Distribution Width 16.1 % (11.5-14.5); Segmented Neutrophils % 90.6 %
[2017-03-30 18:52] LABS: INR 1.3; Prothrombin Time 13.7 Seconds (9.4-12.1)
[2017-03-30 18:55] LABS: Activated Partial Thrombo Time 28.9 Seconds (26.0-36.0)
[2017-03-30] MEDS ORDERED: Piperacillin/Tazobactam 4.5 GM in D5% in Water (Mini-Bag+) 100 ML IVPB ONE (19:00)
[2017-03-30 19:01] LABS: Alanine Aminotransferase 60 Units/L (0-55); Albumin 2.9 g/dL (3.5-5.0); Albumin/Globulin Ratio 0.7 (1.1-2.2); Alkaline Phosphatase 1167 Units/L (38-126); Aspartate Amino Transferase 121 Units/L (5-34); BUN/Creatinine Ratio 5 (6-26); Bilirubin,Direct 1.6 mg/dL (0.0-0.5); Bilirubin,Indirect 0.7 mg/dL (0.0-1.2); Bilirubin,Total 2.3 mg/dL (0.2-1.2); Blood Urea Nitrogen 16 mg/dL (7-20); Carbon Dioxide 27 mEq/L (19-29); Chloride 97 mEq/L (98-109); Ethanol < 10 mg/dL (0-10); Globulin 4.4 g/dL (2.4-3.5); Glucose 237 mg/dL (70-99); Osmolality,Calculated 297 (280-300); Potassium 3.6 mEq/L (3.5-4.5); Sodium 139 mEq/L (136-145); Total Protein 7.3 g/dL (6.0-8.3); eGFR For African Americans 15 (> 60); eGFR For Non-African Americans 12 (> 60)
--- NOTE | 2017-03-30 19:05 | Emergency Department Note ---
Disposition Clinical Impression: Septic shock, ESRD (end stage renal disease) on dialysis, Altered level of consciousness Leukocytosis Qualifiers: Leukocytosis type: unspecified Qualified Code(s): D72.829 - Elevated white blood cell count, unspecified Hypotension Qualifiers: Hypotension type: unspecified hypotension type Qualified Code(s): I95.9 - Hypotension, unspecified Disposition: Admitted As Inpatient Condition: Fair Time of Disposition: 20:21 General Adult HPI - General Chief complaint: ED General Medical Stated complaint: vomiting Source: EMS Limitations: no limitations Nursing Notes Reviewed: Yes Vital Signs Reviewed: Yes - History of Present Illness HPI Narrative: The patient does have history of end-stage renal disease and today did not complete her dialysis but stopped it because she felt bad and did have diaphoresis and nausea and she presents now with complaint that she has had nausea but no vomiting, she does not feel well however she is not able to give an adequate history secondary to altered level of consciousness. She does not have any pain in the head, neck, chest, abdomen or back. No complaint of fever or breathing problems or blood in the urine or stool but again history is compromised secondary to her altered consciousness. Social history: No smoking or alcohol Pain Scale: 0 - Related Data Home Medications Medication Instructions Recorded Confirmed Allopurinol [Zyloprim] 100 mg PO QAM 12/30/14 03/30/17 Aspirin 81 mg PO QAM 12/30/14 03/30/17 Insulin NPH Hum/Reg Insulin Hm 15 unit SQ BID 12/30/14 03/30/17 [Novolin 70-30 100 Unit/ml Vial] Levothyroxine [Synthroid] 125 mcg PO QAM 12/30/14 03/30/17 Pantoprazole Sodium 40 mg PO BID 12/30/14 03/30/17 Pravastatin Sodium [Pravachol] 80 mg PO QAM 12/30/14 03/30/17 Diazepam [Valium] 5 mg PO HS 01/01/15 03/30/17 Gabapentin [Neurontin] 600 mg PO BID 01/01/15 03/30/17 Benzonatate [Tessalon] 100 mg PO Q8H PRN 03/30/17 03/30/17 Folic Acid/Vit Bcomp,C [Renal 0.8 mg PO QAM 03/30/17 03/30/17 Vitamin Tablet] Loratadine/Pseudoephedrine [[facility] 1 each PO DAILY PRN 03/30/17 03/30/17 Loratadine-D 24Hr Tablet] Oxycodone HCl/Acetaminophen 1 each PO Q6H PRN 03/30/17 03/30/17 [Percocet 5-325 mg Tablet] Allergies Allergy/AdvReac Type Severity Reaction Status Date / Time amitriptyline [From Triavil] Allergy See Verified 01/01/15 13:15 Comments azithromycin [From Zithromax] Allergy Difficulty Verified 01/01/15 13:15 Breathing Cortisone Allergy Rash Verified 01/01/15 13:15 perphenazine [From Triavil] Allergy See Verified 01/01/15 13:15 Comments tape Allergy Rash Uncoded 01/01/15 13:15 Review of Systems: Constitutional: No fever Vision: No blurred vision ENT: No rhinorrhea Respiratory: No cough Allergic: No allergies : No blood in urine GI: No blood in stool Hematologic: No bruising Dermatologic: No skin rash Musculoskeletal: No pain in the extremities Neuro: No numbness of the extremities Note that this history is unreliable secondary to patient's confusion Past Medical History - Past Medical History Medical history: Reports: atrial fibrillation, cancer, diabetes, dialysis, GI bleed, hypertension, renal disease, thyroid disease, other Surgical history: Reports: appendectomy, cholecystectomy, hip replacement, hysterectomy, other (left AVF creation) Psychiatric history: Reports: no psych history - Social History Smoking Status: Never smoker Smokeless Tobacco Status: No Alcohol use: Reports: none Drug use: Reports: none Physical Exam CONSTITUTIONAL: Ill appearing, tired-appearing, the patient does not know the year or the month, she is breathing comfortably, no acute distress HEAD: Normocephalic; atraumatic. EYES: PERRL, EOMI, no scleral icterus NOSE: The nose is normal in appearance without rhinorrhea NECK: Supple without rigidity, no JERRI RESP: Normal chest excursion with respiration; breath sounds clear and equal bilaterally; no wheezes, rhonchi, or rales CARD: Regular rhythm, without murmurs, rub or gallop ABD: Non-distended; non-tender, soft, without rigidity, rebound or guarding SKIN: Normal for age and race; warm and dry; no apparent lesions, no rash NEUROLOGICAL: Cranial nerves III-XII are intact. Sensory and motor functions are intact. Strength is 5/5 for flexion and extension in all 4 extremities. Finger to nose testing is equal and normal bilaterally. - General Limitations: no limitations Course Vital Signs Temperature 99.2 F 03/30/17 17:44 Pulse Rate 108 03/30/17 17:44 Respiratory Rate 18 03/30/17 17:44 Blood Pressure 98/59 03/30/17 17:44 O2 Sat by Pulse Oximetry 100 03/30/17 17:44 Temperature 100.9 F H 03/30/17 18:23 Pulse Rate 108 03/30/17 17:44 Respiratory Rate 18 03/30/17 18:23 Blood Pressure 90/63 03/30/17 20:11 O2 Sat by Pulse Oximetry 95 03/30/17 20:11 Oxygen Delivery Oxygen Delivery Room Air Medical Decision Making - MDM Narrative Medical decision making narrative: the patient did feel warm the temperature was rechecked and as it turns her temperature is 100.9 degrees, lactate level is drawn as well as blood cultures and the patient is started on Zosyn and vancomycin and will be admitted to the hospital. I did review the patient's labs. I did review the EKG showing atrial fibrillation with rapid ventricular response with a rate of [address] changes 1905 There is also concern is the patient was initially hypotensive at the pressure 80s and she did receive IV fluids 500 mL will receive more if needed. 1905 I did go back and check on the patient. Her blood pressure is fallen and is now 73 systolic. She denies any dizziness. Interestingly, she is actually more alert and able to give better history than she was initially. States that her dialysis was stopped about 45 minutes early but she said that she did 4-1/2 hours of dialysis. IV has been started and fluids are getting run at this time. This was difficult stick and did take some time. I did evaluate the fistula in the left upper arm and there is a good thrill and no overlying erythema. We do not have a specific source for her infection at this time so could have bacteremia but with his significant hypotension patient will be admitted to intensive care unit and as previously stated Zosyn and vancomycin have been ordered 1931 I did discuss back and reassessed the patient. The blood pressure has improved from 73 systolic and is now 90 systolic. She is continued to receive IV fluids. Patient does not have dizziness. She is conversational. I did speak with the hospitalist who accepts the patient for admission and the patient will go to 2 N. The patient does not make urine so a urine test was not done. Her source of infection could be pulmonary as there are changes on the chest x-ray or she could have bacteremia. I did check the fistula site and it is normal in appearance. Does remain in a critical condition. 2017 I did write for an additional 650 mL of IV fluid which will make a total of 30 mL per kilogram. I also did write for a timed lactate to be done. The patient' s blood pressure was just rechecked which is 91 systolic. She is awake and conversational and does seem improved. 2045 - Medical Records Medical records reviewed: Yes I reviewed the patient's medical records. - Lab Data Lab results reviewed: Yes I reviewed the patient's lab results. Result diagrams: 03/30/17 18:36 03/30/17 18:36 Lab Results 03/30/17 03/30/17 03/30/17 Range/Units 18:36 18:36 18:36 WBC 14.8 H (4.3-11.1) K/mcL RBC 3.28 L (3.82-4.97) M/mcL Hgb 10.6 L (11.5-15.4) g/dL Hct 35.2 L (35.3-44.9) % MCV 107.3 H (83.0-100.0) fL MCH 32.3 (28.0-33.3) pg MCHC 30.1 L (31.6-35.5) g/dL RDW 16.1 H (11.5-14.5) % Plt Count 180 (140-400) K/mcL MPV 10.5 (9.4-12.4) fL Immature Gran % 0.6 (0-4) % Seg Neutrophils % 90.6 % Lymphocytes % 2.8 % Monocytes % 5.3 % Eosinophils % 0.5 % Basophils % 0.2 % Neutrophils # 13.4 H (1.6-8.9) K/mcL Lymphocytes # 0.4 L (0.6-4.6) K/mcL Monocytes # 0.8 (0.0-1.3) K/mcL Eosinophils # 0.1 (0.0-0.6) K/mcL Basophils # 0.0 (0.0-0.2) K/mcL PT 13.7 H (9.4-12.1) Seconds INR 1.3 APTT 28.9 (26.0-36.0) Seconds Sodium 139 (136-145) mEq/L Potassium 3.6 (3.5-4.5) mEq/L Chloride 97 L (98-109) mEq/L Carbon Dioxide 27 (19-29) mEq/L BUN 16 (7-20) mg/dL Creatinine 3.55 H (0.57-1.11) mg/dL Est GFR ( Amer) 15 L (> 60) Est GFR (Non-Af Amer) 12 L (> 60) BUN/Creatinine Ratio 5 L (6-26) Glucose 237 H (70-99) mg/dL Calculated Osmolality 297 (280-300) Lactic Acid (0.5-2.2) mmol/L Calcium 9.0 (8.6-10.8) mg/dL Total Bilirubin 2.3 H (0.2-1.2) mg/dL Direct Bilirubin 1.6 H (0.0-0.5) mg/dL Indirect Bilirubin 0.7 (0.0-1.2) mg/dL AST 121 H (5-34) Units/L ALT 60 H (0-55) Units/L Alkaline Phosphatase 1167 H (38-126) Units/L Ammonia (18-72) mcmol/L Troponin I (0-0.03) ng/mL Serum Total Protein 7.3 (6.0-8.3) g/dL Albumin 2.9 L (3.5-5.0) g/dL Globulin 4.4 H (2.4-3.5) g/dL Albumin/Globulin Ratio 0.7 L (1.1-2.2) Ethyl Alcohol < 10 (0-10) mg/dL 03/30/17 03/30/17 03/30/17 Range/Units 18:36 18:36 18:36 WBC (4.3-11.1) K/mcL RBC (3.82-4.97) M/mcL Hgb (11.5-15.4) g/dL Hct (35.3-44.9) % MCV (83.0-100.0) fL MCH (28.0-33.3) pg MCHC (31.6-35.5) g/dL RDW (11.5-14.5) % Plt Count (140-400) K/mcL MPV (9.4-12.4) fL Immature Gran % (0-4) % Seg Neutrophils % % Lymphocytes % % Monocytes % % Eosinophils % % Basophils % % Neutrophils # (1.6-8.9) K/mcL Lymphocytes # (0.6-4.6) K/mcL Monocytes # (0.0-1.3) K/mcL Eosinophils # (0.0-0.6) K/mcL Basophils # (0.0-0.2) K/mcL PT (9.4-12.1) Seconds INR APTT (26.0-36.0) Seconds Sodium (136-145) mEq/L Potassium (3.5-4.5) mEq/L Chloride (98-109) mEq/L Carbon Dioxide (19-29) mEq/L BUN (7-20) mg/dL Creatinine (0.57-1.11) mg/dL Est GFR ( Amer) (> 60) Est GFR (Non-Af Amer) (> 60) BUN/Creatinine Ratio (6-26) Glucose (70-99) mg/dL Calculated Osmolality (280-300) Lactic Acid 2.0 (0.5-2.2) mmol/L Calcium (8.6-10.8) mg/dL Total Bilirubin (0.2-1.2) mg/dL Direct Bilirubin (0.0-0.5) mg/dL Indirect Bilirubin (0.0-1.2) mg/dL AST (5-34) Units/L ALT (0-55) Units/L Alkaline Phosphatase (38-126) Units/L Ammonia 19 (18-72) mcmol/L Troponin I 0.01 (0-0.03) ng/mL Serum Total Protein (6.0-8.3) g/dL Albumin (3.5-5.0) g/dL Globulin (2.4-3.5) g/dL Albumin/Globulin Ratio (1.1-2.2) Ethyl Alcohol (0-10) mg/dL Critical Care Time Critical Care Time: Yes Total Critical Care Time: 30 Attestation: 30 minutes of critical care time were spent with the patient with significant hypotension, IV fluids, IV Zosyn and vancomycin, pulmonary changes, correlation of test results with the patient with history of end-stage renal disease and alt level of consciousness
[2017-03-30] MEDS ORDERED: SODIUM CHLORIDE IVC ONE (20:44)
--- NOTE | 2017-03-30 22:00 | Internal Med History&Physical ---
<CarltonRuperto ayala - Last Filed: 03/30/17 23:23> Date of Encounter: 03/30/17 Time of Encounter: 21:56 Assessment and Plan (1) Severe sepsis Current visit: Yes Status: Acute - Tachycardic at 108, WBC elevated at 14. - lactic acid 2.0. With evidence of AMS and transaminitis. - Hypotensive in ED, received a total of 1.6 L total of NS. Will give 2 additional L as inaccurate weight suspected - Secondary to possible PNA gallbladder pathology. CXR showed left pleural effusion with opacity, elevated LFTs from baseline. - RUQ US pending. - Will start levaquin, zosyn, vanc. (2) Altered level of consciousness Current visit: Yes Status: Acute - Likely secondary to severe sepsis vs overdiuresis from dialysis today. - Treatment of underlying condition as above. (3) Transaminitis Current visit: Yes Status: Acute - May be secondary to end organ damage from sepsis vs gallbladder pathology. - RUQ US pending. 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 (4) ESRD (end stage renal disease) on dialysis Current visit: Yes Status: Chronic - ESRD on MWF dialysis. Was not able to complete dialysis this afternoon due to nausea. - Continue scheduled dialysis. (5) Afib Current visit: Yes Status: Chronic - AFib with RVR in ED at HR of 108 - Tachycardic likely secondary to infection. - Not on anticoagulation - Will continue home meds and treat underlying infection. Qualifiers: Atrial fibrillation type: paroxysmal Qualified Code(s): I48.0 - Paroxysmal atrial fibrillation (6) DVT prophylaxis Current visit: Yes Status: Acute - Heparin 5000 units q12 Internal Medicine - H&P: HPI Chief complaint: nausea Admitted From: Emergency Dept Plans for Post Hospital Care: Home History of present illness: Ms. Ocampo is a 76 year old female with past medical history of A. fib, ESRD , CHF, hypertension presents to the emergency room from dialysis center with a complaint of "feeling sick". At time of interview, patient appears to be confused and is not believed to be a reliable historian. Unsure of patient's baseline, no family present at bedside. Patient states that she was able to complete some of her dialysis session this afternoon, however she began to feel nauseous but denies any vomiting. She said also states that she has been increasingly short of breath with nonproductive cough and has noticed some chills. She also states she has some abdominal pain in bilateral lower quadrants which has been present for some time. Normal bowel movements most recently 2 days ago. She denies any symptoms of fevers, chest pain, ages in bowel movements, lower extremity edema, new rash, dysuria, dizziness, lightheadedness. She is not oxygen dependent at home. In the emergency department, patient was noted to be febrile at 100.9, atrial fibrillation with RVR at 108, hypotensive in the 70s to 90s systolic blood pressure. After induction well at 3 L of oxygen via nasal cannula. Lab results showed a white count of 14, stable anemia, stable renal function. She was noted to have hyperbilirubinemia as well as elevated liver enzymes. Urinalysis is yet to be collected. Chest x-ray showed left pleural effusion with left basilar opacities possibly representing fluid or atelectasis. Head CT was negative for acute process. Past Med Surg Social Fam HX - Past Medical History Medical history: atrial fibrillation, cancer, diabetes, dialysis, GI bleed, hypertension, renal disease, thyroid disease, other Psychiatric history: no psych history - Past Surgical History Surgical History: appendectomy, cholecystectomy, hip replacement, hysterectomy, other (left AVF creation) - Social History Smoking Status: Never smoker Smokeless Tobacco Status: No Alcohol use: none Drug use: none Internal Medicine - H&P: Meds Allopurinol [Zyloprim] 100 mg PO QAM 12/30/14 [History] Aspirin 81 mg PO QAM 12/30/14 [History] Insulin NPH Hum/Reg Insulin Hm [Novolin 70-30 100 Unit/ml Vial] 15 unit SQ BID 12/30/14 [History] Levothyroxine [Synthroid] 125 mcg PO QAM 12/30/14 [History] Pantoprazole Sodium 40 mg PO BID 12/30/14 [History] Pravastatin Sodium [Pravachol] 80 mg PO QAM 12/30/14 [History] Diazepam [Valium] 5 mg PO HS 01/01/15 [History] Gabapentin [Neurontin] 600 mg PO BID 01/01/15 [History] Benzonatate [Tessalon] 100 mg PO Q8H PRN 03/30/17 [History] Folic Acid/Vit Bcomp,C [Renal Vitamin Tablet] 0.8 mg PO QAM 03/30/17 [History] Loratadine/Pseudoephedrine [Cvs Loratadine-D 24Hr Tablet] 1 each PO DAILY PRN [History] Oxycodone HCl/Acetaminophen [Percocet 5-325 mg Tablet] 1 each PO Q6H PRN [History] 3 Allergy/AdvReac Type Severity Reaction Status Date / Time amitriptyline [From Triavil] Allergy See Verified 01/01/15 13:15 Comments azithromycin [From Zithromax] Allergy Difficulty Verified 01/01/15 13:15 Breathing Cortisone Allergy Rash Verified 01/01/15 13:15 perphenazine [From Triavil] Allergy See Verified 01/01/15 13:15 Comments tape Allergy Rash Uncoded 01/01/15 13:15 All Systems PM: A 10-system review of systems was performed and is negative for pertinent findings except as documented above in the HPI. - Constitutional Constitutional: chills, weakness, no fatigue, no fever(s), no lethargy, no malaise - Cardiovascular Cardiovascular ROS IM: dyspnea, no chest pain, no diaphoresis, no dyspnea on exertion, no edema, no lightheadedness, no syncope - Respiratory Respiratory: cough, dyspnea, no dyspnea on exertion, no excessive phlegm production, no change in phlegm color, no pain with cough - Gastrointestinal Gastrointestinal: abdominal pain, nausea, no constipation, no diarrhea, no hematemesis, no loose stools, no vomiting - Genitourinary Genitourinary: no dysuria - Musculoskeletal Musculoskeletal ROS IM: no muscle weakness, no myalgias, no numbness, no tingling - Integumentary Integumentary IM: no erythema, no rash - Neurological Neurological ROS: no focal weakness, no headache(s), no numbness, no tingling, no weakness - Constitutional Vitals: Temp Pulse Resp BP Pulse Ox 100.9 F H 108 18 90/63 95 03/30/17 18:23 03/30/17 17:44 03/30/17 18:23 03/30/17 20:11 03/30/17 20:11 Exam: Gen.: Vitals noted. No acute distress. Confused appearing. Essential tremors HEENT: PERRL, oropharynx clear, Normocephalic, atraumatic. Moist mucous membranes Cardiac: Irregularly irregular rhythm, no murmur, +S1/S2 Pulmonary: Rales auscultated in bilateral bases as well as left middle, equal chest expansion Abdomen: soft, nontender, BS noted, no guarding MSK: ROM intact, no joint swelling noted Extremities: no BLE edema, nontender calf, no cyanosis or clubbing Neuro: moves all extremities, no focal deficits Psych: Appropriate mood and behavior Internal Med - H&P Results - Labs CBC & Chem 7: 03/30/17 18:36 03/30/17 18:36 <Rolando Sharma - Last Filed: 03/31/17 00:46> Date of Encounter: 03/31/17 Internal Medicine - H&P: HPI History of present illness: Ms. Ocampo is a 76 year old female All Systems PM: A 10-system review of systems was performed and is negative for pertinent findings except as documented above in the HPI. - Constitutional Vitals: Temp Pulse Resp BP Pulse Ox 99.1 F 65 19 89/60 94 03/30/17 23:12 03/31/17 00:20 03/31/17 00:10 03/31/17 00:20 03/31/17 00:20 Internal Med - H&P Results - Labs CBC & Chem 7: 03/30/17 18:36 03/30/17 18:36 - Attending Attestation I have seen and examined this patient on 03/30/17 I have discussed plan of care with the resident physician She is altered at time of review and most hx is obtained from chart, no family member at bedside Admitted and being managed for sever sepsis with hypotension with likely source being pneumonia, Vs GI source as patient has transaminitis and hyperbilirubinemia as well as elevated ALP. Her CXR is suspicious for pneumonia Her symptoms started during hemodialysis and she may be bactremic as well Agree with broad spectrum anitbiotics, additional bolus for body weight and monitor She may need pressors if her blood pressure doesn's improve Assume full code, no family member at bedside Rest of details as in resident physician's documentation
[2017-03-30] MEDS ORDERED: Naloxone 0.4 MG/ML INJ IVP PRN (22:06)
[2017-03-30] MEDS ORDERED: *HR* Morphine 2 MG/ML SYRINGE IVP PRN (22:06)
[2017-03-30] MEDS ORDERED: Acetaminophen 325 MG TABLET PO PRN (22:06)
[2017-03-30] MEDS ORDERED: *HR* HYDROcodone/Acet 5/325 mg TABLET PO PRN (22:06)
[2017-03-30] MEDS ORDERED: Ondansetron 4 MG/2 ML VIAL IVP PRN (22:06)
[2017-03-30] MEDS ORDERED: Benzonatate 100 MG CAPSULE PO PRN (22:08)
[2017-03-30] MEDS ORDERED: D5% in Water 1,000 ML IVC PRN (22:09)
[2017-03-30] MEDS ORDERED: *HR* Dextrose 50 % in Water (Syg) 50 ML SYRINGE IVP PRN (22:09)
[2017-03-30] MEDS ORDERED: Dextrose Gel 15 GM PO PRN ×2 (22:09)
[2017-03-30] MEDS ORDERED: Vancomycin 750 MG in D5% in Water 250 ML IVPB SCH (23:45)
[2017-03-31] MEDS: 0.9 % Sodium Chloride 1,000 ML IVC SCH ×2 (01:09→02:00)
[2017-03-31 01:22] LABS: Basophils % 0.2 %; Eosinophils # 0.1 K/mcL (0.0-0.6); Eosinophils % 0.4 %; Hematocrit 31.6 % (35.3-44.9); Hemoglobin 9.6 g/dL (11.5-15.4); Immature Granulocytes % 0.4 % (0-4); Lymphocytes % 6.3 %; Mean Corpuscular HGB Conc 30.4 g/dL (31.6-35.5); Mean Corpuscular Hemoglobin 32.7 pg (28.0-33.3); Mean Corpuscular Volume 107.5 fL (83.0-100.0); Mean Platelet Volume 10.4 fL (9.4-12.4); Monocytes % 5.8 %; Neutrophils # 14.3 K/mcL (1.6-8.9); Platelet Count 155 K/mcL (140-400); Red Blood Count 2.94 M/mcL (3.82-4.97); Red Cell Distribution Width 16.3 % (11.5-14.5); Segmented Neutrophils % 86.9 %
[2017-03-31 01:34] LABS: Magnesium 1.5 mg/dL (1.6-2.6); Phosphorous 3.4 mg/dL (2.3-4.7)
[2017-03-31 01:37] LABS: Albumin 2.4 g/dL (3.5-5.0); Albumin/Globulin Ratio 0.6 (1.1-2.2); Bilirubin,Total 2.7 mg/dL (0.2-1.2); Calcium 8.6 mg/dL (8.6-10.8); Globulin 3.9 g/dL (2.4-3.5); Potassium 3.7 mEq/L (3.5-4.5); Total Protein 6.3 g/dL (6.0-8.3)
[2017-03-31] MEDS ORDERED: 0.9 % Sodium Chloride 1,000 ML ONE (03:51)
[2017-03-31] MEDS ORDERED: Magnesium Sulfate 2 GM in D5% in Water 100 ML IVPB ONE (04:41)
[2017-03-31] MEDS ORDERED: 0.9 % Sodium Chloride 1,000 ML IVC SCH (04:45)
[2017-03-31] MEDS ORDERED: *HR* Heparin 5,000 UNIT/ML VIAL SQ SCH (06:00)
[2017-03-31] MEDS ORDERED: Piperacillin/Tazobactam 3.375 GM in D5% in Water 50 ML IVPB SCH ×2 (06:00→09:00)
[2017-03-31 06:35] LABS: Vancomycin,Random 10.4 mcg/mL
[2017-03-31] MEDS ORDERED: Vancomycin 1,000 MG in D5% in Water 250 ML IVPB ONE (08:00)
[2017-03-31] MEDS: Insulin LISPRO 300 UNITS/3 ML VIAL SQ SCH ×2 (08:12→13:13)
[2017-03-31] MEDS ORDERED: Levofloxacin 750 MG/150 ML 750 MG/150 ML BAG IVPB SCH (09:00)
[2017-03-31] MEDS ORDERED: Aspirin 81 MG TAB.CHEW PO SCH (09:00)
[2017-03-31 09:10] LABS: Acinetobacter baumannii by PCR Not Detected (Not Detect); Candida albicans by PCR Not Detected (Not Detect); Candida glabrata by PCR Not Detected (Not Detect); Candida krusei by PCR Not Detected (Not Detect); Candida parapsilosis by PCR Not Detected (Not Detect); Candida tropicalis by PCR Not Detected (Not Detect); Enterococcus by PCR Not Detected (Not Detect); Klebsiella oxytoca by PCR Not Detected (Not Detect); Klebsiella pneumoniae by PCR Not Detected (Not Detect); Pseudomonas aeruginosa by PCR Not Detected (Not Detect); Serratia marcescens by PCR Not Detected (Not Detect); Staphylococcus aureus by PCR Not Detected (Not Detect); Streptococcus agalactiae(B)PCR Not Detected (Not Detect); Streptococcus by PCR Not Detected (Not Detect); Streptococcus pneumoniae PCR Not Detected (Not Detect); Streptococcus pyogenes (A) PCR Not Detected (Not Detect); blaKPC Carbapenem-Resist Gene Not Detected (Not Detect)
[2017-03-31 09:11] LABS: Escherichia coli by PCR ***DETECTED*** (Not Detect)
[2017-03-31 10:41] LABS: Chol/HDL Ratio 2.3 (0-4.9)
[2017-03-31 11:05] VITALS: BP 83/48
--- NOTE | 2017-03-31 11:50 | Nephrology Consult Note ---
Date of Encounter: 03/31/17 Time of Encounter: 11:48 Assessment and Plan (1) ESRD (end stage renal disease) on dialysis Status: Chronic HD MWF No need for HD today. Renal dose medications. Renal diet. Received most of her dialysis on Sunday. (2) Anemia in CKD (chronic kidney disease) Status: Chronic Monitor for bleeding. Transfuse as needed. (3) Diabetes Status: Acute Per primary team. 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 She is asymptomatic. She has other signs that indicated sepsis. Per primary team. (5) Severe sepsis Status: Acute Continue antibiotics. Per primary team. History of Present Illness - Reason for Consult Consult date: 03/31/17 end stage renal disease - Chief Complaint ESRD Past Med Surg Social Fam HX - Past Medical History Medical history: atrial fibrillation, cancer, diabetes, dialysis, GI bleed, hypertension, renal disease, thyroid disease, other Psychiatric history: no psych history - Past Surgical History Surgical History: appendectomy, cholecystectomy, hip replacement, hysterectomy, other - Social History Smoking Status: Never smoker Smokeless Tobacco Status: No Alcohol use: none Drug use: none Medications and Allergies Allopurinol [Zyloprim] 100 mg PO QAM 12/30/14 [History] Aspirin 81 mg PO QAM 12/30/14 [History] Insulin NPH Hum/Reg Insulin Hm [Novolin 70-30 100 Unit/ml Vial] 15 unit SQ BID 12/30/14 [History] Levothyroxine [Synthroid] 125 mcg PO QAM 12/30/14 [History] Pantoprazole Sodium 40 mg PO BID 12/30/14 [History] Pravastatin Sodium [Pravachol] 80 mg PO QAM 12/30/14 [History] Diazepam [Valium] 5 mg PO HS 01/01/15 [History] Gabapentin [Neurontin] 600 mg PO BID 01/01/15 [History] Benzonatate [Tessalon] 100 mg PO Q8H PRN 03/30/17 [History] Folic Acid/Vit Bcomp,C [Renal Vitamin Tablet] 0.8 mg PO QAM 03/30/17 [History] Loratadine/Pseudoephedrine [Cvs Loratadine-D 24Hr Tablet] 1 each PO DAILY PRN [History] Oxycodone HCl/Acetaminophen [Percocet 5-325 mg Tablet] 1 each PO Q6H PRN [History] 3 Allergy/AdvReac Type Severity Reaction Status Date / Time amitriptyline [From Triavil] Allergy See Verified 01/01/15 13:15 Comments azithromycin [From Zithromax] Allergy Difficulty Verified 01/01/15 13:15 Breathing Cortisone Allergy Rash Verified 01/01/15 13:15 perphenazine [From Triavil] Allergy See Verified 01/01/15 13:15 Comments tape Allergy Rash Uncoded 01/01/15 13:15 Review of Systems All Systems: reviewed and no additional remarkable complaints except as stated ( as per hpi) Exam - Vital Signs Vital signs: Initial Vital Signs Temp Pulse Resp BP Pulse Ox 99.2 F 108 18 98/59 100 03/30/17 17:44 03/30/17 17:44 03/30/17 17:44 03/30/17 17:44 03/30/17 17:44 Vital Signs - Last 8 Hours Temp Pulse Resp BP Pulse Ox 03/31/17 11:04 97.9 F 67 17 83/48 91 03/31/17 07:15 98.3 F 73 16 91/33 93 03/31/17 05:00 60 96/42 03/31/17 04:00 65 107/31 Intake and Output 03/30/17 03/31/17 03/31/17 23:59 07:59 15:59 Intake Total 1650 / 2000 1100 / 1100 70 / 70 Output Total 0 / 0 Balance 1650 / 2000 1100 / 1100 70 / 70 Intake: IV Fluids 1650 / 1650 1000 / 1000 50 / 50 0.9 % Sodium Chloride 1,000 ML 650 / 650 1000 / 1000 @ 3750 mls/hr IVC .Q16M ELYSSA Rx# :[id number] 0.9 % Sodium Chloride 500 ML @ 1000 / 1000 1875 mls/hr IVC .Q16M ONE Rx#: [id number] Magnesium Sulfate Premix 2gm/ 50 / 50 50mL 2 gm In 50 ml @ 50 mls/hr IVPB ONCE ONE Rx#:[id number] Oral 100 / 100 20 / 20 Output: Urine 0 / 0 Other: Meal NPO Percent of Meal Consumed 0% Stool Size Moderate Stool Consistency formed Stool Characteristics Normal for Patient Stool Color Brown # Bowel Movements 1 Weight 96.2 kg Blood Glucose* 208 156 Patient Weight 03/31/17 23:59 Weight 96.2 kg - General Appearance General appearance: well-developed, well-nourished EENT: ATNC Neck: supple Respiratory: clear Cardiology: no edema, regular rate, regular rhythm Gastrointestinal: normoactive bowel sounds, no tenderness, obese Integumentary: warm and dry Neurologic: alert and oriented x3 Musculoskeletal: no cyanosis Psychiatric: mood/affect appropriate Results - Lab Results 03/31/17 01:08 03/31/17 01:08 Most recent lab results Calcium 8.6 mg/dL (8.6-10.8) 03/31/17 01:08 Phosphorus 3.4 mg/dL (2.3-4.7) 03/31/17 01:08 Magnesium 1.5 mg/dL (1.6-2.6) L 03/31/17 01:08 Consult Discharge Plan - Plan Referrals: Damaso Francisco DO [Primary Care Provider] -
--- NOTE | 2017-03-31 14:32 | Discharge Summary ---
<Leon Bailey - Last Filed: 03/31/17 18:29> Date of Encounter: 03/31/17 Time of Encounter: 08:20 - Discharge Diagnosis (1) Cholangitis due to bile duct calculus with obstruction Priority: Primary Status: Acute Comments: Transferring to [facility] in [place] for ERCP (2) Severe sepsis Priority: Secondary Status: Acute (3) ESRD (end stage renal disease) on dialysis Priority: Secondary Status: Chronic Comments: Hemodialysis dependent; receives HD 3 times a week (4) Renal mass of unknown nature Priority: Secondary Status: Acute Comments: Elucidated incidentally on abdominal CT this morning; will need further evaluation (5) Afib Priority: Secondary Status: Chronic Comments: May need cardio consult for consideration of anticoagulation therapy Qualifiers: Atrial fibrillation type: paroxysmal Qualified Code(s): I48.0 - Paroxysmal atrial fibrillation - Discharge Medications Home Medications: Allopurinol [Zyloprim] 100 mg PO QAM 12/30/14 [History] Aspirin 81 mg PO QAM 12/30/14 [History] Insulin NPH Hum/Reg Insulin Hm [Novolin 70-30 100 Unit/ml Vial] 15 unit SQ BID 12/30/14 [History] Levothyroxine [Synthroid] 125 mcg PO QAM 12/30/14 [History] Pantoprazole Sodium 40 mg PO BID 12/30/14 [History] Pravastatin Sodium [Pravachol] 80 mg PO QAM 12/30/14 [History] Diazepam [Valium] 5 mg PO HS 01/01/15 [History] Gabapentin [Neurontin] 600 mg PO BID 01/01/15 [History] Benzonatate [Tessalon] 100 mg PO Q8H PRN 03/30/17 [History] Folic Acid/Vit Bcomp,C [Renal Vitamin Tablet] 0.8 mg PO QAM 03/30/17 [History] Loratadine/Pseudoephedrine [Cvs Loratadine-D 24Hr Tablet] 1 each PO DAILY PRN [History] Oxycodone HCl/Acetaminophen [Percocet 5-325 mg Tablet] 1 each PO Q6H PRN [History] Allergies/Adverse Reactions: 3 Allergy/AdvReac Type Severity Reaction Status Date / Time amitriptyline [From Triavil] Allergy See Verified 01/01/15 13:15 Comments azithromycin [From Zithromax] Allergy Difficulty Verified 01/01/15 13:15 Breathing Cortisone Allergy Rash Verified 01/01/15 13:15 perphenazine [From Triavil] Allergy See Verified 01/01/15 13:15 Comments tape Allergy Rash Uncoded 01/01/15 13:15 Procedures/tests Complete & Pending: Procedures Performed prior 72 hours Category Date Time Status CT abd pelvis wo no iv no oral [CT] Stat Cat Scan 03/31/17 09:[address] chest wo con [CT] Stat Cat Scan 03/31/17 09:59 Completed US liver [US] Routine Exams 03/30/17 23:20 Ordered Date of admission: 03/30/17 23:00 Primary care physician: Damaso Francisco, Consults: 03/31/17 11:44 Consult to Nephrology [CONS] Routine Consulting Provider: Kidney Piper/YAYO/KAMRAN/CARMINE Reason for Consult: ESRD-HD Time Notified: 10:15 Call Completed: Yes Discharging clinician: Leon Bailey Anticipated date of discharge: 03/31/17 - Patient Status Disposition: Transfer Short-Term Hosp Condition: Fair Functional capacity at discharge: uses cane/walker Overall status at discharge: other (Acutely ill requiring further monitoring, evaluation, and intervention) - Discharge Instructions Follow Up With: Damaso Francisco DO [Primary Care Provider] - - Diet and Activity Activity: as per physical therapy Diet: other (NPO for now) Interval History: Patient has no acute complaints. Blood pressures remain hypotensive with maps in the 60s. Patient expresses desire to eat and to be discharged home. Discussed with patient the need for further evaluation including CT of her abdomen, ultrasound, and further evaluation of lab abnormalities. Met with patients again following reporting of aforementioned studies; patient is status post cholecystectomy many years ago, however, does have what looks to be an obstructing stone within common bile duct stone contributing to cholangitic pattern. Informed patient that she would require transport to a facility that can provide ERCP services; patient prefers to go to [facility] in [place]. Also, incidental renal mass was discovered on the same CT ; discussed finding with patient as well explained that it would need further evaluation likely during her inpatient admission in [place]. Patient wished to speak with her brother about work up and she opted to call brother and have me speak with him. Significance of diagnostic evaluation explained to patient' s brother, Jame, and he expresses understanding. All questions were answered. No further requests or concerns at this time from patient or family. Hospital course: Ms. Ocampo is a 76 year old female with end-stage renal disease who presented to the ED by EMS for severe epigastric abdominal pain. Patient met Sirs criteria in the ED and was hypotensive thus satisfying severe sepsis; see details of work up. Patient was admitted to step down unit with broad scope antibiotic therapy. Right upper quadrant ultrasound was scheduled, however, CT abdomen was obtained in the interim demonstrating actionable findings. CT demonstrated surgically absent gallbladder, however, common bile duct has a large obstructing stone at the ampulla with pericholangitic findings. Patient' s lab evaluation demonstrated cholestatic pattern as well as hyperbilirubinemia. Also was leukocytotic. Nephrology consult was obtained due to MWF-HD schedule and no changes in the schedule were recommended. No on- service GI specialists were available for ERCP, so discussed with patient who agreed to transfer to alternate facility for ERCP as well as ongoing abx. Of note, patient did have preliminary positive blood cultures supportive of gram negative (e.coli by PCR) bacteremia. CT also demonstrated incidental left renal mass concerning for RCC. Patient was informed of all findings and patient was given opportunity to have any questions answered on multiple occasions. Patient continues to be consistently hypotensive but stable in this regard; she clinically appears to be in fair condition and in no distress. Will transfer to [facility] via EMS. - Time Spent with Patient Total time spent providing and/or coordinating discharge services: Less than 30 minutes - Constitutional Vitals: Temp Pulse Resp BP Pulse Ox 97.9 F 67 17 83/48 91 03/31/17 11:04 03/31/17 11:04 03/31/17 11:04 03/31/17 11:04 03/31/17 11:04 Exam: CONSTITUTIONAL: Alert and oriented X3, well-nourished, well appearing, in no apparent distress HEAD: Normocephalic; atraumatic. EYES: PERRL, slight scleral icterus NOSE: The nose is normal in appearance without rhinorrhea RESP: Normal chest excursion with respiration; breath sounds clear and equal bilaterally; no wheezes, rhonchi, or rales CARD: Regular rhythm, without murmurs, rub or gallop ABD: Non-distended; no diffuse tenderness; focal tenderness to epigastric region with modest regarding. No peritoneal signs. No rigidity. No pressure will hepatomegaly. SKIN: Normal for age and race; warm and dry; no apparent lesions <Nicolas Welch - Last Filed: 03/31/17 18:39> Date of Encounter: 03/31/17 - Discharge Diagnosis (1) Sepsis Priority: Primary Status: Acute Qualifiers: Sepsis type: Escherichia coli Qualified Code(s): A41.51 - Sepsis due to Escherichia coli [E. coli] (2) Cholangitis due to bile duct calculus with obstruction Status: Acute (3) Permanent atrial fibrillation Priority: Secondary Status: Chronic (4) HTN (hypertension) Priority: Secondary Status: Chronic Qualifiers: Hypertension type: essential hypertension Qualified Code(s): I10 - Essential (primary) hypertension (5) Hypothyroidism Priority: Secondary Status: Chronic Qualifiers: Hypothyroidism type: acquired Qualified Code(s): E03.9 - Hypothyroidism, unspecified (6) ESRD (end stage renal disease) on dialysis Status: Chronic Procedures/tests Complete & Pending: Procedures Performed prior 72 hours Category Date Time Status CT abd pelvis wo no iv no oral [CT] Stat Cat Scan 03/31/17 09:[address] chest wo con [CT] Stat Cat Scan 03/31/17 09:59 Completed Date of admission: 03/30/17 23:00 Primary care physician: Damaso Francisco, Consults: 03/31/17 11:44 Consult to Nephrology [CONS] Routine Consulting Provider: Kidney Piper/YAYO/KAMRAN/CARMINE Reason for Consult: ESRD-HD Time Notified: 10:15 Call Completed: Yes Hospital course: Ms. Ocampo is a 76 year old female - Time Spent with Patient Total time spent providing and/or coordinating discharge services:40min - Constitutional Vitals: Temp Pulse Resp BP Pulse Ox 97.9 F 67 17 83/48 91 03/31/17 11:04 03/31/17 11:04 03/31/17 11:04 03/31/17 11:04 03/31/17 11:04 - Attending Attestation I examined this patient and my medical decision-making was reviewed with the Resident Physician on 03/31/17 I agree with the documented findings, disposition and treatment plan as described except to the extent set forth below. Ms Ocampo has been admitted for sepsis. She has markedly elevated liver function consistent with obstructive picture. She has previous cholecystectomy. CT of abdomen shows obstructing CBD stone with evidence of cholangitis. Blood cx are positive for E coli. She remains borderline hypotensive. Exam Alert. Comfortable Heart reg Lungs clear Abd tender epigastric I/P Pt with cholangitis Pt to be transferred to [place] for ERCP.
[2017-03-31] MEDS ORDERED: Aminoglycoside Consult 1 EACH MC ONE (15:37)
[2017-03-31] MEDS ORDERED: diazePAM 5 MG TABLET PO SCH (21:00)
[2017-04-01] MEDS ORDERED: Levofloxacin 500 MG/100 ML 500 MG/100 ML BAG IVPB SCH (09:00)
--- NOTE | 2017-04-01 19:35 | Electrocardiograph Report ---
[address] [place], [place] [address] Test Date: 2017-03-30 Pat Name: Marlyn Ocampo Department: 102 Room: 2N01 Gender: F Stay Cutter: Farhan : 1940 Requested By: Elijah Block Order Number: [id number] Reading MD: Elier Sifuentes MD Measurements Intervals [place] Rate: 103 P: DC: 0 QRS: -36 QRSD: 104 T: 111 QT: 356 QTc: 415 Interpretive Statements ATRIAL FIBRILLATION WITH RAPID VENTRICULAR RESPONSE MARKED LEFT AXIS DEVIATION POSSIBLE ANTERIOR MYOCARDIAL INFARCTION BASELINE ARTIFACT, PROBABLY OLD Electronically Signed On 04-01-2017 19:33:41 EST by Elier Sifuentes MD
== END 2017-03-31 15:38 | disposition short-term general hospital (02) | DRG 871 ==
LOC: 2NNU 17:40 → EMEROO 17:40 → 2NNU 22:49
PROVIDERS: ADMIT Internal Medicine; ATTEND Internal Medicine

== ENCOUNTER 2017-04-18 15:00 | Inpatient (IN) ==
[~2017-04-18 15:00] MED LIST: Aminoglycoside Consult 1 EACH MC ONE
--- NOTE | 2017-04-18 15:27 | Emergency Department Note ---
Disposition Clinical Impression: ESRD (end stage renal disease) on dialysis Cellulitis Qualifiers: Site of cellulitis: extremity Site of cellulitis of extremity: lower extremity Laterality: unspecified laterality Qualified Code(s): L03.119 - Cellulitis of unspecified part of limb Fall Qualifiers: Encounter type: initial encounter Qualified Code(s): W19.XXXA - Unspecified fall, initial encounter Disposition: Admitted As Inpatient Condition: Good Time of Disposition: 20:23 General Adult HPI - General Chief complaint: ED Extremity Problem,Nontraumatic Stated complaint: bilateral lower leg swelling and redness Time Seen by Provider: 04/18/17 15:08 Source: patient, EMS Mode of arrival: EMS Limitations: no limitations Nursing Notes Reviewed: Yes Vital Signs Reviewed: Yes - History of Present Illness HPI Narrative: 76-year-old female with end-stage renal disease presenting to the emergency department with chief complaint of chest wall pain. Patient states approximately one week ago she slipped on her floor and landed forward on her chest and under her chin. She denies loss of consciousness. She denies being on any anticoagulation. She states since then she has had some chest wall pain. She states the next day she felt again backwards. She thinks that she tripped over her feet but is not certain. She denies hitting her head or losing consciousness on this occasion as well. Patient gets dialysis Sunday and her aerobics teacher is Dr. Cameron. She went to dialysis today and they were concerned for bilateral lower extremity cellulitis. Patient states she is having no pain in her lower extremities but the redness is new over the past couple of days. She denies any fevers at home. Patient does not make urine. Pain Scale: 3 - Related Data Home Medications Medication Instructions Recorded Confirmed Allopurinol [Zyloprim] 100 mg PO QAM 12/30/14 04/18/17 Aspirin 81 mg PO QAM 12/30/14 04/18/17 Insulin NPH Hum/Reg Insulin Hm 25 - 35 unit SQ BID 12/30/14 04/18/17 [Novolin 70-30 100 Unit/ml Vial] Levothyroxine [Synthroid] 125 mcg PO QAM 12/30/14 04/18/17 Pantoprazole Sodium 40 mg PO BID 12/30/14 04/18/17 Pravastatin Sodium [Pravachol] 80 mg PO QAM 12/30/14 04/18/17 Diazepam [Valium] 5 mg PO HS 01/01/15 04/18/17 Gabapentin [Neurontin] 600 mg PO BID 01/01/15 04/18/17 Folic Acid/Vit Bcomp,C [Renal 0.8 mg PO QAM 03/30/17 04/18/17 Vitamin Tablet] Oxycodone HCl/Acetaminophen 1 tab PO BID PRN 03/30/17 04/18/17 [Percocet 5-325 mg Tablet] Midodrine [ProAmatine] 5 mg PO DAILY 04/18/17 04/18/17 Sevelamer [Renvela] 800 mg PO 04/18/17 Allergies Allergy/AdvReac Type Severity Reaction Status Date / Time amitriptyline [From Triavil] Allergy See Verified 01/01/15 13:15 Comments azithromycin [From Zithromax] Allergy Difficulty Verified 01/01/15 13:15 Breathing Cortisone Allergy Rash Verified 01/01/15 13:15 perphenazine [From Triavil] Allergy See Verified 01/01/15 13:15 Comments tape Allergy Rash Uncoded 01/01/15 13:15 All systems ED: reviewed and negative except as stated. Constitutional: Denies: fever, chills Eyes: Reports: as per HPI ENT ED: Reports: as per HPI Cardiovascular: Reports: chest pain. Denies: palpitations, dyspnea on exertion Respiratory: Denies: cough, dyspnea, wheezes Gastrointestinal: Denies: abdominal pain, nausea, vomiting Genitourinary: Reports: as per HPI Musculoskeletal: Reports: as per HPI Integumentary: Reports: as per HPI Neurological: Denies: numbness, paresthesias Psychiatric: Reports: as per HPI Endocrine: Reports: as per HPI Hematological/Lymphatic: Reports: as per HPI Allergic/Immunologic: Reports: as per HPI Past Medical History - Past Medical History Attestation: Yes The following information was validated with the patient. Medical history: Reports: atrial fibrillation, cancer, diabetes, dialysis, GI bleed, hypertension, renal disease, thyroid disease Surgical history: Reports: appendectomy, cholecystectomy, hip replacement, hysterectomy, other Psychiatric history: Reports: no psych history - Social History Smoking Status: Never smoker Smokeless Tobacco Status: No Alcohol use: Reports: none Drug use: Reports: none Physical Exam - General Limitations: no limitations General appearance: alert, in no apparent distress - Head Head exam: atraumatic, normocephalic, normal inspection - Eye Eye exam: Present: normal appearance. Absent: scleral icterus, conjunctival injection - Neck Neck exam: Present: normal inspection, full ROM. Absent: tenderness, meningismus - Chest Chest inspection: Present: normal inspection, symmetric chest wall rise. Absent : tenderness, rash - Respiratory Respiratory exam: Present: normal lung sounds bilaterally. Absent: respiratory distress, wheezes - Cardiovascular Cardiovascular exam: Present: regular rate, normal rhythm, normal heart sounds - Abdominal Exam Abdominal exam: Present: soft, Non-Tender. Absent: distention, guarding, rebound - Extremities Exam Extremities exam: Present: full ROM, other (Bilateral lower extremity redness with warmth. No discharge or crepitus noted. No tenderness to palpation. Distal pulses bilateral lower extremity 2+. Sensation intact bilateral lower extremities. 5 out of 5 muscle strength bilateral lower extremities.) - Neurological Exam Neurological exam: Present: alert, oriented X3 - Psychiatric Psychiatric exam: Present: normal affect, normal mood - Skin Skin exam: Present: warm, intact Course Course Narrative: 76-year-old female presenting to the emergency department with chief complaint of chest wall pain after a fall one week ago. Patient states the pain is constant at this time. Patient also sent over from dialysis clinic due to bilateral lower extremity cellulitis. They concerned that she may need IV antibiotics. Patient alert and oriented 3 and there is with only complained of chest wall pain. Patient is afebrile here. Disposition pending results of basic lab work completed. We will also start the patient on IV antibiotics. I spoke with the aerobics teacher design printer balloon Dr. Jovel who agrees to have the patient started on vancomycin and admit her for IV antibiotics and further workup. - Reevaluation(s) Reevaluation #1: Patient's lab work has come back and remained stable. No white blood cell count. We will admit the patient at this time for IV antibiotics for bilateral lower extremity cellulitis. Patient's alert and oriented 3 in the room with stable vital signs. She agrees with this plan. I spoke with the hospitalist on -call Dr. Bolaños who agrees to accept the patient. Vital Signs Temperature 97.7 F 04/18/17 15:08 Pulse Rate 64 04/18/17 15:08 Respiratory Rate 18 04/18/17 15:08 Blood Pressure 108/53 04/18/17 15:08 O2 Sat by Pulse Oximetry 95 04/18/17 15:08 Temperature 97.7 F 04/18/17 15:08 Pulse Rate 67 04/18/17 19:15 Respiratory Rate 16 04/18/17 19:15 Blood Pressure 113/50 04/18/17 19:15 O2 Sat by Pulse Oximetry 95 04/18/17 19:15 Oxygen Delivery Oxygen Delivery Room Air Medical Decision Making - Lab Data Result diagrams: 04/18/17 18:45 04/18/17 18:45 Lab Results 04/18/17 04/18/17 04/18/17 Range/Units 18:45 18:45 18:45 WBC 6.9 (4.3-11.1) K/mcL RBC 3.41 L (3.82-4.97) M/mcL Hgb 11.0 L (11.5-15.4) g/dL Hct 36.5 (35.3-44.9) % MCV 107.0 H (83.0-100.0) fL MCH 32.3 (28.0-33.3) pg MCHC 30.1 L (31.6-35.5) g/dL RDW 18.2 H (11.5-14.5) % Plt Count 105 L (140-400) K/mcL MPV 11.1 (9.4-12.4) fL Immature Gran % 0.7 (0-4) % Seg Neutrophils % 67.4 % Lymphocytes % 20.2 % Monocytes % 8.9 % Eosinophils % 2.2 % Basophils % 0.6 % Neutrophils # 4.6 (1.6-8.9) K/mcL Lymphocytes # 1.4 (0.6-4.6) K/mcL Monocytes # 0.6 (0.0-1.3) K/mcL Eosinophils # 0.2 (0.0-0.6) K/mcL Basophils # 0.0 (0.0-0.2) K/mcL Nucleated RBCs/100 WBC 0.3 H (0) /100 WBC Sodium 140 (136-145) mEq/L Potassium 4.0 (3.5-4.5) mEq/L Chloride 99 (98-109) mEq/L Carbon Dioxide 21 (19-29) mEq/L BUN 21 H (7-20) mg/dL Creatinine 4.10 H (0.57-1.11) mg/dL Est GFR ( Amer) 13 L (> 60) Est GFR (Non-Af Amer) 11 L (> 60) BUN/Creatinine Ratio 5 L (6-26) Glucose 198 H (70-99) mg/dL Calculated Osmolality 299 (280-300) Calcium 9.5 (8.6-10.8) mg/dL Magnesium 2.0 (1.6-2.6) mg/dL Total Bilirubin 1.4 H (0.2-1.2) mg/dL Direct Bilirubin 0.6 H (0.0-0.5) mg/dL Indirect Bilirubin 0.8 (0.0-1.2) mg/dL AST 20 (5-34) Units/L ALT 11 (0-55) Units/L Alkaline Phosphatase 443 H (38-126) Units/L Troponin I 0.02 (0-0.03) ng/mL Serum Total Protein 7.3 (6.0-8.3) g/dL Albumin 3.1 L (3.5-5.0) g/dL Globulin 4.2 H (2.4-3.5) g/dL Albumin/Globulin Ratio 0.7 L (1.1-2.2) - EKG Data EKG #1 EKG attestation: Yes I reviewed and interpreted this EKG. EKG results narrative: Atrial fibrillation with PVCs. Left axis deviation. T wave abnormality. Rate of 55 bpm. QRS 97, QTC is 284. When compared to previous EKG completed on new PVCs noted also decrease in rate from 103 to 55.
[2017-04-18] MEDS ORDERED: Vancomycin 1,500 MG in D5% in Water 250 ML IVPB ONE (15:57)
--- NOTE | 2017-04-18 16:03 | Emergency Department Note ---
START Narrative - START START: I examined this patient and my medical decision-making was reviewed with the Resident Physician. I agree with the documented findings, disposition and treatment plan as described except to the extent set forth below. Patient with bilateral lower extremity cellulitis. Patient is a known dialysis patient. Nephrology was okay with starting IV vancomycin. Patient will be admitted.
[2017-04-18 18:54] LABS: Basophils % 0.6 %; Eosinophils # 0.2 K/mcL (0.0-0.6); Eosinophils % 2.2 %; Hematocrit 36.5 % (35.3-44.9); Immature Granulocytes % 0.7 % (0-4); Lymphocytes # 1.4 K/mcL (0.6-4.6); Lymphocytes % 20.2 %; Mean Corpuscular HGB Conc 30.1 g/dL (31.6-35.5); Mean Corpuscular Hemoglobin 32.3 pg (28.0-33.3); Mean Platelet Volume 11.1 fL (9.4-12.4); Monocytes # 0.6 K/mcL (0.0-1.3); Monocytes % 8.9 %; Neutrophils # 4.6 K/mcL (1.6-8.9); Nucleated Red Blood Cells 0.3 /100 WBC (0); Platelet Count 105 K/mcL (140-400); Red Blood Count 3.41 M/mcL (3.82-4.97); Red Cell Distribution Width 18.2 % (11.5-14.5); Segmented Neutrophils % 67.4 %
[2017-04-18 19:17] LABS: Albumin 3.1 g/dL (3.5-5.0); Albumin/Globulin Ratio 0.7 (1.1-2.2); Bilirubin,Direct 0.6 mg/dL (0.0-0.5); Bilirubin,Indirect 0.8 mg/dL (0.0-1.2); Bilirubin,Total 1.4 mg/dL (0.2-1.2); Calcium 9.5 mg/dL (8.6-10.8); Globulin 4.2 g/dL (2.4-3.5); Total Protein 7.3 g/dL (6.0-8.3)
[2017-04-18] MEDS ORDERED: Ondansetron 4 MG/2 ML VIAL IVP PRN (21:14)
[2017-04-18] MEDS ORDERED: Naloxone 0.4 MG/ML INJ IVP PRN (21:14)
[2017-04-18] MEDS ORDERED: Acetaminophen 325 MG TABLET PO PRN (21:14)
--- NOTE | 2017-04-18 21:19 | Internal Med History&Physical ---
Date of Encounter: 04/18/17 Time of Encounter: 21:00 Assessment and Plan (1) Cellulitis Current visit: Yes Status: Acute Acute cellulitis of bilateral lower legs - unclear etiology - patient denies recent injury or insect bite Continue empiric IV Zosyn, IV Vancomycin Cultures - pending Chest x-ray - mild bibasilar effusions, left basilar airspace disease CT head - pending WBC - 6.9 Cardiac telemetry, labs in a.m., monitor closely Qualifiers: Site of cellulitis: extremity Site of cellulitis of extremity: lower extremity Laterality: unspecified laterality Qualified Code(s): L03.119 - Cellulitis of unspecified part of limb (2) ESRD (end stage renal disease) on dialysis Current visit: Yes Status: Chronic ESRD on hemodialysis on Sunday and Fridays Nephrology consult (3) Atrial fibrillation with normal ventricular rate Current visit: Yes Status: Chronic Chronic atrial fibrillation, rate controlled Patient is not on any medications for rate control Anticoagulation was discontinued due to history of GI bleed (4) Diabetes Current visit: Yes Status: Acute Type 2 diabetes mellitus, insulin dependent, hyperglycemia Continue insulin sliding scale, glucose checks Qualifiers: Diabetes mellitus type: type 2 Diabetes mellitus complication status: with kidney complications Diabetes mellitus complication detail: with chronic kidney disease Diabetes mellitus technician terminal and repeater insulin use: with senior living use Chronic kidney disease stage: on chronic dialysis Qualified Code(s): E11.22 - Type 2 diabetes mellitus with diabetic chronic kidney disease; N18.6 - End stage renal disease; Z99.2 - Dependence on renal dialysis; Z99.2 - Dependence on renal dialysis; Z99.2 - Dependence on renal dialysis; N18.6 - End stage renal disease; N18.6 - End stage renal disease; N18.6 - End stage renal disease ; Z79.4 - terminal manager (current) use of insulin; Z79.4 - terminal manager (current) use of insulin; Z79.4 - terminal manager (current) use of insulin; Z79.4 - terminal manager ( current) use of insulin; Z99.2 - Dependence on renal dialysis (5) DVT prophylaxis Current visit: Yes Status: Acute Heparin subcutaneous Internal Medicine - H&P: HPI Chief complaint: Bilateral lower leg swelling Admitted From: Emergency Dept Plans for Post Hospital Care: Home History of present illness: Ms. Ocampo is a 76 year old female with past medical history of ESRD on HD, atrial fibrillation, GI bleed, diabetes, hypertension and CHF. Patient presents to the ED for bilateral lower leg edema and redness. Examined in the room. Patient is awake and alert. Not in any distress. Able to provide all history. No family members at bedside. Patient states she noticed redness over both lower extremities about 2-3 days ago. Symptoms seemed to gradually worsen. She also noticed worsening bilateral leg edema. She denies chest pain or shortness of breath at this time. Patient states she did have a fall about a week ago and had some mild chest wall pain which is now improved. Denies headache or dizziness. No fever. No abdominal pain or vomiting or diarrhea. Bilateral leg edema and redness and no person. Patient was at hemodialysis today and there was concern for cellulitis. Patient was advised to go to ED. No associated symptoms. No other acute complaints. Initial workup in the ED is negative. Chest x-ray does show bibasilar effusions and left basilar atelectasis or pneumonia. Patient is being admitted for acute cellulitis of both lower legs. She will need IV antibiotics. Patient has been explained about her condition and plan of care in detail. She understood and agreed. No unanswered questions. CODE STATUS full code. Past Med Surg Social Fam HX - Past Medical History Medical history: atrial fibrillation, cancer, diabetes, dialysis, GI bleed, hypertension, renal disease, thyroid disease Psychiatric history: no psych history - Past Surgical History Surgical History: appendectomy, cholecystectomy, hip replacement, hysterectomy, other - Social History Smoking Status: Never smoker Smokeless Tobacco Status: No Alcohol use: none Drug use: none Internal Medicine - H&P: Meds Allopurinol [Zyloprim] 100 mg PO QAM 12/30/14 [History] Aspirin 81 mg PO QAM 12/30/14 [History] Insulin NPH Hum/Reg Insulin Hm [Novolin 70-30 100 Unit/ml Vial] 25 - 35 unit SQ BID 12/30/14 [History] Levothyroxine [Synthroid] 125 mcg PO QAM 12/30/14 [History] Pantoprazole Sodium 40 mg PO BID 12/30/14 [History] Pravastatin Sodium [Pravachol] 80 mg PO QAM 12/30/14 [History] Diazepam [Valium] 5 mg PO HS 01/01/15 [History] Gabapentin [Neurontin] 600 mg PO BID 01/01/15 [History] Folic Acid/Vit Bcomp,C [Renal Vitamin Tablet] 0.8 mg PO QAM 03/30/17 [History] Oxycodone HCl/Acetaminophen [Percocet 5-325 mg Tablet] 1 tab PO BID PRN [History] Midodrine [ProAmatine] 5 mg PO DAILY 04/18/17 [History] Sevelamer [Renvela] 800 mg PO 04/18/17 [History] 3 Allergy/AdvReac Type Severity Reaction Status Date / Time amitriptyline [From Triavil] Allergy See Verified 01/01/15 13:15 Comments azithromycin [From Zithromax] Allergy Difficulty Verified 01/01/15 13:15 Breathing Cortisone Allergy Rash Verified 01/01/15 13:15 perphenazine [From Triavil] Allergy See Verified 01/01/15 13:15 Comments tape Allergy Rash Uncoded 01/01/15 13:15 All Systems PM: A 10-system review of systems was performed and is negative for pertinent findings except as documented above in the HPI. - Constitutional Constitutional: fatigue, falls, no fever(s), no weakness - EENT Eyes: no blurry vision - Cardiovascular Cardiovascular ROS IM: edema, no chest pain, no diaphoresis, no dyspnea, no dyspnea on exertion, no lightheadedness, no orthopnea, no palpitations, no syncope - Respiratory Respiratory: no cough, no dyspnea, no hemoptysis, no dyspnea on exertion, no wheezing, no chest congestion - Gastrointestinal Gastrointestinal: no abdominal pain, no bloating, no cramping, no diarrhea, no hematemesis, no hematochezia, no loose stools, no nausea, no vomiting - Musculoskeletal Musculoskeletal ROS IM: no back pain - Neurological Neurological ROS: frequent falls, no abnormal gait, no confusion, no dizziness, no loss of vision, no numbness, no tingling - Constitutional Vitals: Temp Pulse Resp BP Pulse Ox 97.7 F 70 18 96/51 93 04/18/17 15:08 04/18/17 19:30 04/18/17 19:30 04/18/17 19:30 04/18/17 19:30 General appearance: Present: cooperative, A&O X 3, morbidly obese, pleasant, no acute distress, answers questions appropriately - Head Head exam: Present: atraumatic - Eye Eye exam: Present: EOMI - ENT ENT exam: Present: mucous membranes dry - Respiratory Respiratory exam: Present: CTAB. Absent: accessory muscle use, rales, respiratory distress, rhonchi, wheezes, tachypnea - Cardiovascular Cardiovascular exam: Present: irregular rhythm, +S1, +S2 - GI/Abdominal GI/Abdominal exam: Present: soft. Absent: distended, firm, guarding, tenderness - Extremities Exam Extremities exam: Present: pedal edema (Bilateral leg 2+ edema), radial pulses palpable and symmetrical. Absent: calf tenderness, cyanotic Additional comments: Bilateral lower legs extensive erythema - Neurological Exam Neurological exam: Present: alert, oriented X3, no focal deficits. Absent: facial droop, speech deficit Internal Med - H&P Results - Labs CBC & Chem 7: 04/18/17 18:45 04/18/17 18:45
[2017-04-19 04:32] LABS: Basophils % 0.5 %; Eosinophils # 0.2 K/mcL (0.0-0.6); Eosinophils % 3.2 %; Hematocrit 34.6 % (35.3-44.9); Hemoglobin 10.1 g/dL (11.5-15.4); Immature Granulocytes % 0.4 % (0-4); Lymphocytes # 1.5 K/mcL (0.6-4.6); Lymphocytes % 26.8 %; Mean Corpuscular HGB Conc 29.2 g/dL (31.6-35.5); Mean Corpuscular Hemoglobin 32.3 pg (28.0-33.3); Mean Corpuscular Volume 110.5 fL (83.0-100.0); Mean Platelet Volume 11.3 fL (9.4-12.4); Monocytes # 0.6 K/mcL (0.0-1.3); Monocytes % 10.2 %; Neutrophils # 3.3 K/mcL (1.6-8.9); Nucleated Red Blood Cells 0.4 /100 WBC (0); Platelet Count 105 K/mcL (140-400); Red Blood Count 3.13 M/mcL (3.82-4.97); Red Cell Distribution Width 18.2 % (11.5-14.5); Segmented Neutrophils % 58.9 %
[2017-04-19 04:43] LABS: Calcium 9.6 mg/dL (8.6-10.8); Potassium 4.1 mEq/L (3.5-4.5)
[2017-04-19 05:11] LABS: Anisocytosis 2+ (Not Present)
[2017-04-19 05:12] LABS: Macrocytosis Present (Not Present); Platelet Estimate Decreased (Normal)
[2017-04-19] MEDS ORDERED: Vancomycin 1,000 MG in D5% in Water 250 ML IVPB SCH (06:00)
[2017-04-19] MEDS: *HR* Heparin 5,000 UNIT/ML VIAL SQ SCH ×2 (06:06→17:13)
[2017-04-19] MEDS ORDERED: Piperacillin/Tazobactam 3.375 GM/200 ML BAG IVPB SCH (08:00)
--- NOTE | 2017-04-19 08:00 | Internal Med Progress Note ---
Date of Encounter: 04/19/17 Time of Encounter: 08:00 - Assessment and plan (1) ESRD (end stage renal disease) on dialysis Current Visit: Yes Status: Chronic Assessment and plan: Nephrology consulted for HD purposes. M/W/F dialysis (2) Atrial fibrillation with normal ventricular rate Current Visit: Yes Status: Chronic Assessment and plan: Rate controlled. On ASA. No anticoags due to history of bleeding. Normal TSH (3) Diabetes Current Visit: Yes Status: Acute Assessment and plan: Restart NPH home dose and put on SSI. c/w accuchecs. Qualifiers: Diabetes mellitus type: type 2 Diabetes mellitus complication status: with kidney complications Diabetes mellitus complication detail: with chronic kidney disease Diabetes mellitus penitentiary insulin use: with penitentiary use Chronic kidney disease stage: on chronic dialysis Qualified Code(s): E11.22 - Type 2 diabetes mellitus with diabetic chronic kidney disease; N18.6 - End stage renal disease; N18.6 - End stage renal disease; N18.6 - End stage renal disease; N18.6 - End stage renal disease; Z79.4 - laborer marine terminal (current) use of insulin; Z79.4 - residential (current) use of insulin; Z79.4 - laborer marine terminal (current ) use of insulin; Z79.4 - laborer marine terminal (current) use of insulin; Z99.2 - Dependence on renal dialysis; Z99.2 - Dependence on renal dialysis; Z99.2 - Dependence on renal dialysis; Z99.2 - Dependence on renal dialysis (4) Transaminitis Current Visit: No Status: Acute Assessment and plan: ALK phos is elevated but better compared to last stay. She is s/p ERCP at [facility] per patient and had 2 stones extracted. Finished outpatient abx (5) Cellulitis Current Visit: Yes Status: Acute Assessment and plan: B/L which is unusual. No skin tears. Will keep on abx but will down grade to ceftriaxone only. Check LE dopplers r/o DVT. f/u on cultures. Qualifiers: Site of cellulitis: extremity Site of cellulitis of extremity: lower extremity Laterality: unspecified laterality Qualified Code(s): L03.119 - Cellulitis of unspecified part of limb (6) Renal mass of unknown nature Current Visit: No Status: Acute Assessment and plan: Scheduled for surgery Next Sunday at [place] (7) DVT prophylaxis Current Visit: Yes Status: Acute Assessment and plan: heparin SQ - Subjective Interval history: No acute events. Patient is afebrile. Admitted last night with LE cellulites. Remains hemodynamically stable on IV abx. - Constitutional Vitals: Temp Pulse Resp BP Pulse Ox 97.9 F 73 17 92/31 96 04/19/17 06:56 04/19/17 06:56 04/19/17 06:56 04/19/17 06:56 04/19/17 06:56 General appearance: Present: cooperative, A&O X 3, morbidly obese, pleasant, no acute distress, answers questions appropriately Exam: GEN: NAD CVS: RRR. S1, S2, No m/r/g RESP: CTAB ABD: Soft, NT, ND, +BS EXT: 1+ edema. 2+ DP, No rashes but LE with erthema bilaterally NEURO: Nonfocal Internal Medicine: Result - Labs CBC & Chem 7: 04/19/17 03:51 04/19/17 03:51 Labs: Short CBC 04/19/17 Range/Units 03:51 WBC 5.6 (4.3-11.1) K/mcL Hgb 10.1 L (11.5-15.4) g/dL Hct 34.6 L (35.3-44.9) % Plt Count 105 L (140-400) K/mcL Neutrophils # 3.3 (1.6-8.9) K/mcL BMP 04/19/17 03:51 Sodium 139 Potassium 4.1 Chloride 98 Carbon Dioxide 24 BUN 24 H Creatinine 4.73 H Glucose 225 H Calcium 9.6 Consult Discharge Plan - Plan Referrals: Damaso Francisco DO [Primary Care Provider] -
[2017-04-19] MEDS ORDERED: D5% in Water 1,000 ML IVC PRN (08:21)
[2017-04-19] MEDS ORDERED: Dextrose Gel 15 GM PO PRN ×2 (08:21)
[2017-04-19] MEDS ORDERED: *HR* Dextrose 50 % in Water (Syg) 50 ML SYRINGE IVP PRN (08:21)
--- NOTE | 2017-04-19 08:45 | Nephrology Consult Note ---
Date of Encounter: 04/19/17 Time of Encounter: 08:42 Assessment and Plan (1) ESRD (end stage renal disease) on dialysis Current Visit: Yes Status: Chronic Plan for HD tomorrow Continue renal diet Fluid restriction-1.5 liters/day-ordered Patient was recently in [facility] and was discharge quite a bit above her EDW; currently trying to remove the excess fluid in outpatient HD treatments. Difficulty removing fluids as patient's b/p runs low. Strict I/Os-ordered Avoid nephrotoxins if possible Vanco to be dosed by pharmacy Patient is scheduled in [place] next Friday 04/27 for surgery-mass on kidney (2) Cellulitis Current Visit: Yes Status: Acute per primary team Vanco to be dosed by pharmacy Patient has surgery scheduled next Sunday in [place] for removal of mass on kidney Qualifiers: Site of cellulitis: extremity Site of cellulitis of extremity: lower extremity Laterality: unspecified laterality Qualified Code(s): L03.119 - Cellulitis of unspecified part of limb (3) Diabetes Current Visit: Yes Status: Acute per primary team Qualifiers: Diabetes mellitus type: type 2 Diabetes mellitus complication status: with kidney complications Diabetes mellitus complication detail: with chronic kidney disease Diabetes mellitus half-way insulin use: with equipment operator intermodal yard use Chronic kidney disease stage: on chronic dialysis Qualified Code(s): E11.22 - Type 2 diabetes mellitus with diabetic chronic kidney disease; N18.6 - End stage renal disease; Z99.2 - Dependence on renal dialysis; Z99.2 - Dependence on renal dialysis; Z99.2 - Dependence on renal dialysis; N18.6 - End stage renal disease; N18.6 - End stage renal disease; N18.6 - End stage renal disease ; Z79.4 - shelter (current) use of insulin; Z79.4 - equipment operator intermodal yard (current) use of insulin; Z79.4 - shelter (current) use of insulin; Z79.4 - shelter ( current) use of insulin; Z99.2 - Dependence on renal dialysis History of Present Illness - Reason for Consult Consult date: 04/19/17 - Chief Complaint cellulitis, legs; ESRD on dialysis - History of Present Illness Ms. Ocampo is a 76 year old female well known to our practice with a past medical history of ESRD on HD, atrial fibrillation, GI bleed, diabetes, hypertension and CHF. I saw patient yesterday at her outpatient dialysis unit and noticed her bilat legs were very red and warm to touch. Patient stated this started 2-3 days ago. Recent hx of falls, she is working with her PCP and getting phyiscal therapy set up. Patient uses a walker and lives in an assisted living facility. Advised patient to go to ED after her HD treatment yesterday for eval, suspected cellulitis. Patient was admitted for bilat leg cellulitis. Past Med Surg Social Fam HX - Past Medical History Medical history: atrial fibrillation, cancer, diabetes, dialysis, GI bleed, hypertension, renal disease, thyroid disease Psychiatric history: no psych history - Past Surgical History Surgical History: appendectomy, cholecystectomy, hip replacement, hysterectomy, other - Social History Smoking Status: Never smoker Smokeless Tobacco Status: No Alcohol use: none Drug use: none Medications and Allergies Allopurinol [Zyloprim] 100 mg PO QAM 12/30/14 [History] Aspirin 81 mg PO QAM 12/30/14 [History] Insulin NPH Hum/Reg Insulin Hm [Novolin 70-30 100 Unit/ml Vial] 25 - 35 unit SQ BID 12/30/14 [History] Levothyroxine [Synthroid] 125 mcg PO QAM 12/30/14 [History] Pantoprazole Sodium 40 mg PO BID 12/30/14 [History] Pravastatin Sodium [Pravachol] 80 mg PO QAM 12/30/14 [History] Diazepam [Valium] 5 mg PO HS 01/01/15 [History] Gabapentin [Neurontin] 600 mg PO BID 01/01/15 [History] Folic Acid/Vit Bcomp,C [Renal Vitamin Tablet] 0.8 mg PO QAM 03/30/17 [History] Oxycodone HCl/Acetaminophen [Percocet 5-325 mg Tablet] 1 tab PO BID PRN [History] Midodrine [ProAmatine] 5 mg PO DAILY 04/18/17 [History] Sevelamer [Renvela] 1,600 mg PO TIDWM 04/18/17 [History] 3 Allergy/AdvReac Type Severity Reaction Status Date / Time amitriptyline [From Triavil] Allergy See Verified 01/01/15 13:15 Comments azithromycin [From Zithromax] Allergy Difficulty Verified 01/01/15 13:15 Breathing Cortisone Allergy Rash Verified 01/01/15 13:15 perphenazine [From Triavil] Allergy See Verified 01/01/15 13:15 Comments tape Allergy Rash Uncoded 01/01/15 13:15 Review of Systems All Systems: reviewed and no additional remarkable complaints except as stated Constitutional: no chills, no fever(s), no malaise Cardiovascular: no chest pain, no dyspnea, no leg edema Respiratory: no cough, no wheezing Gastrointestinal: no nausea, no vomiting Integumentary: erythema (bilat legs, left greater than right), other (bilat lower legs warm to touch) Neurological: no behavioral changes Exam - Vital Signs Vital signs: Initial Vital Signs Temp Pulse Resp BP Pulse Ox 97.7 F 64 18 108/53 95 04/18/17 15:08 04/18/17 15:08 04/18/17 15:08 04/18/17 15:08 04/18/17 15:08 Vital Signs - Last 8 Hours Temp Pulse Resp BP Pulse Ox 04/19/17 06:56 97.9 F 73 17 92/31 96 04/19/17 03:44 97.3 F L 72 16 94/57 94 Intake and Output 04/18/17 04/19/17 04/19/17 23:59 07:59 15:59 Other: Stool Size Moderate Stool Consistency formed Stool Color Brown # Voids 0 0 # Bowel Movements 0 0 Weight 99.79 kg Blood Glucose* 265 185 - General Appearance General appearance: well-developed, well-nourished, obese EENT: ATNC, mucous membranes moist, hearing intact, vision intact Neck: supple Respiratory: clear Cardiology: no edema, normal S1, normal S2 - Dialysis Access Dialysis Vascular Access: Arteriovenous Fistula Gastrointestinal: no tenderness, no guarding, obese Neurologic: alert and oriented x3 Psychiatric: mood/affect appropriate, cooperative Results - Lab Results 04/19/17 03:51 04/19/17 03:51 Most recent lab results Calcium 9.6 mg/dL (8.6-10.8) 04/19/17 03:51 Magnesium 2.0 mg/dL (1.6-2.6) 04/18/17 18:45 Consult Discharge Plan - Plan Referrals: Damaso Francisco DO [Primary Care Provider] -
[2017-04-19] MEDS: Gabapentin 300 MG CAPSULE PO SCH ×2 (09:26→21:09)
[2017-04-19] MEDS: Aspirin 81 MG TAB.CHEW PO SCH (09:27)
[2017-04-19] MEDS: Renal Vitamin 1 MG CAPSULE PO SCH (09:27)
[2017-04-19] MEDS: Insulin LISPRO 300 UNITS/3 ML VIAL SQ SCH ×4 (09:37→21:09)
[2017-04-19] MEDS: Insulin NPH/REG 70/30 100 UNIT/ML (x5UNIT) SQ SCH ×2 (10:17→16:46)
[2017-04-19] MEDS: cefTRIAXone 1,000 MG in Water for inj. (sterile) 10 ML IVP SCH (14:50)
--- NOTE | 2017-04-19 18:42 | Electrocardiograph Report ---
[place] [id number] Test Date: 2017-04-18 Pat Name: Marlyn Ocampo Department: 103 Room: 2A51 Gender: F Recording Engineer: KESHIA : [id number] Requested By: Shey Rogers Order Number: [id number] Reading MD: Eduard Johnson DO Measurements Intervals [place] Rate: 55 P: MO: 0 QRS: -33 QRSD: 97 T: 127 QT: 294 QTc: 284 Interpretive Statements ATRIAL FIBRILLATION WITH SLOW VENTRICULAR RESPONSE WITH ABERRANT CONDUCTION OR VENTRICULAR PREMATURE COMPLEXES MARKED LEFT AXIS DEVIATION NONSPECIFIC ST-T WAVE ABNORMALITY Electronically Signed On 04-19-2017 18:40:58 EST by Eduard Johnson DO
[2017-04-19] MEDS: diazePAM 5 MG TABLET PO SCH (21:09)
[2017-04-20 03:36] LABS: Basophils % 0.5 %; Eosinophils # 0.3 K/mcL (0.0-0.6); Eosinophils % 4.2 %; Hematocrit 34.4 % (35.3-44.9); Hemoglobin 10.2 g/dL (11.5-15.4); Immature Granulocytes % 0.2 % (0-4); Lymphocytes # 1.9 K/mcL (0.6-4.6); Lymphocytes % 30.8 %; Mean Corpuscular HGB Conc 29.7 g/dL (31.6-35.5); Mean Corpuscular Hemoglobin 32.7 pg (28.0-33.3); Mean Corpuscular Volume 110.3 fL (83.0-100.0); Mean Platelet Volume 10.7 fL (9.4-12.4); Monocytes # 0.6 K/mcL (0.0-1.3); Monocytes % 9.4 %; Neutrophils # 3.4 K/mcL (1.6-8.9); Platelet Count 111 K/mcL (140-400); Red Blood Count 3.12 M/mcL (3.82-4.97); Red Cell Distribution Width 17.9 % (11.5-14.5); Segmented Neutrophils % 54.9 %
[2017-04-20 03:48] LABS: Potassium 4.3 mEq/L (3.5-4.5)
[2017-04-20 04:21] LABS: Anisocytosis 1+ (Not Present); Platelet Estimate Slight Decrease (Normal)
[2017-04-20 04:22] LABS: Macrocytosis Present (Not Present); Polychromasia 1+ (Not Present)
[2017-04-20] MEDS: *HR* Heparin 5,000 UNIT/ML VIAL SQ SCH ×2 (05:58→16:58)
--- NOTE | 2017-04-20 07:41 | Internal Med Progress Note ---
Date of Encounter: 04/20/17 Time of Encounter: 07:40 - Assessment and plan (1) Cellulitis Current Visit: Yes Status: Acute Assessment and plan: B/L which is unusual. No skin tears. c/w ceftriaxone. Negative for DVT. f/u on cultures. Qualifiers: Site of cellulitis: extremity Site of cellulitis of extremity: lower extremity Laterality: unspecified laterality Qualified Code(s): L03.119 - Cellulitis of unspecified part of limb (2) ESRD (end stage renal disease) on dialysis Current Visit: Yes Status: Chronic Assessment and plan: Nephrology consulted for HD purposes. M/W/F dialysis. plans for HD today (3) Transaminitis Current Visit: No Status: Acute Assessment and plan: ALK phos is elevated but better compared to last stay. She is s/p ERCP at [facility] [place] per patient and had 2 stones extracted. Finished outpatient abx. Will check CMP tomorrow (4) Atrial fibrillation with normal ventricular rate Current Visit: Yes Status: Chronic Assessment and plan: Rate controlled. On ASA. No anticoags due to history of bleeding. Normal TSH (5) Diabetes Current Visit: Yes Status: Acute Assessment and plan: c/w NPH home dose as is for now as glucose is elevated after missing last night' s NPH dose. Monitor for hypoglycemia. Encourage PO. c/w SSI. c/w accuchecs. Qualifiers: Diabetes mellitus type: type 2 Diabetes mellitus complication status: with kidney complications Diabetes mellitus complication detail: with chronic kidney disease Diabetes mellitus assisted insulin use: with marine oil terminal superintendent use Chronic kidney disease stage: on chronic dialysis Qualified Code(s): E11.22 - Type 2 diabetes mellitus with diabetic chronic kidney disease; N18.6 - End stage renal disease; Z99.2 - Dependence on renal dialysis; Z99.2 - Dependence on renal dialysis; Z99.2 - Dependence on renal dialysis; N18.6 - End stage renal disease; N18.6 - End stage renal disease; N18.6 - End stage renal disease ; Z79.4 - petroleum terminal plant operator (current) use of insulin; Z79.4 - [facility] (current) use of insulin; Z79.4 - petroleum terminal plant operator (current) use of insulin; Z79.4 - [facility] ( current) use of insulin; Z99.2 - Dependence on renal dialysis (6) Renal mass of unknown nature Current Visit: No Status: Acute Assessment and plan: Scheduled for surgery Next Sunday at [place] (7) DVT prophylaxis Current Visit: Yes Status: Acute Assessment and plan: heparin SQ - Subjective Interval history: No acute events. Patient is afebrile. She had a glucose reading of 70 yesterday and night dose of NPH held. She had no hypoglycemia symptoms, however. - Constitutional Vitals: Temp Pulse Resp BP Pulse Ox 98.5 F 87 16 97/58 94 04/20/17 04:34 04/20/17 04:34 04/20/17 04:34 04/20/17 04:34 04/20/17 04:34 General appearance: Present: cooperative, A&O X 3, morbidly obese, pleasant, no acute distress, answers questions appropriately Exam: GEN: NAD CVS: RRR. S1, S2, No m/r/g RESP: CTAB ABD: Soft, NT, ND, +BS EXT: 1+ edema. 2+ DP, No rashes but LE with erthema bilaterally NEURO: Nonfocal Internal Medicine: Result - Labs CBC & Chem 7: 04/20/17 03:26 04/20/17 03:26 Labs: Short CBC 04/20/17 Range/Units 03:26 WBC 6.2 (4.3-11.1) K/mcL Hgb 10.2 L (11.5-15.4) g/dL Hct 34.4 L (35.3-44.9) % Plt Count 111 L (140-400) K/mcL Neutrophils # 3.4 (1.6-8.9) K/mcL BMP 04/20/17 03:26 Sodium 139 Potassium 4.3 Chloride 98 Carbon Dioxide 23 BUN 41 H D Creatinine 6.27 H Glucose 198 H Calcium 10.0 Consult Discharge Plan - Plan Referrals: Damaso Francisco DO [Primary Care Provider] -
[2017-04-20] MEDS: Renal Vitamin 1 MG CAPSULE PO SCH (08:12)
[2017-04-20] MEDS: cefTRIAXone 1,000 MG in Water for inj. (sterile) 10 ML IVP SCH (08:12)
[2017-04-20] MEDS: Gabapentin 300 MG CAPSULE PO SCH ×2 (08:12→22:20)
[2017-04-20] MEDS: Aspirin 81 MG TAB.CHEW PO SCH (08:13)
[2017-04-20] MEDS: Insulin LISPRO 300 UNITS/3 ML VIAL SQ SCH ×4 (08:15→22:09)
[2017-04-20] MEDS: Insulin NPH/REG 70/30 100 UNIT/ML (x5UNIT) SQ SCH ×2 (10:21→16:57)
--- NOTE | 2017-04-20 15:00 | Nephrology Progress Note ---
Date of Encounter: 04/20/17 Time of Encounter: 11:30 - Assessment and Plan (1) ESRD (end stage renal disease) on dialysis Current Visit: Yes Status: Chronic HD planned today with goal UD of 2-3kg if hemodynamics tolerate Plan to give albumin and midodrine at the beginning of HD Will plan for extra UF tomorrow if needed for fluid overload Lytes WNL Continue renal diet (2) Cellulitis Current Visit: Yes Status: Acute Antibiotics per primary team Qualifiers: Site of cellulitis: extremity Site of cellulitis of extremity: lower extremity Laterality: unspecified laterality Qualified Code(s): L03.119 - Cellulitis of unspecified part of limb Subjective Interval history: Interim events noted, pt admitted for cellulitis. Pt seen and examined with no new complaints. Objective - Vital Signs Vital signs: Vital Signs Temp Pulse Resp BP Pulse Ox 04/20/17 11:02 97.7 F 63 16 120/64 98 04/20/17 08:29 94 04/20/17 07:41 97.7 F 66 18 108/52 94 04/20/17 04:34 98.5 F 87 16 97/58 94 04/19/17 19:40 98.3 F 68 15 95/58 97 04/19/17 17:10 90/50 04/19/17 16:19 98.3 F 63 16 96 Intake and Output 04/19/17 04/20/17 04/20/17 23:59 07:59 15:59 Intake Total 360 / 360 Output Total 0 / 0 Balance 360 / 360 Intake: Oral 360 / 360 Output: Urine 0 / 0 Other: Meal Breakfast Percent of Meal Consumed 75% # Voids 0 0 Weight 100 kg Blood Glucose* 135 211 213 Patient Weight 04/20/17 23:59 Weight 100 kg - General Appearance General appearance: Present: chronically ill (NAD) EENT: Present: ATNC, mucous membranes moist Neck: Present: no JVD, supple Respiratory: Present: clear (ant bilat) Cardiology: Present: edema (LE bilat), normal S1, normal S2 Dialysis Vascular Access: Arteriovenous Fistula thrill: Yes bruit: Yes Gastrointestinal: Present: no tenderness, no guarding, obese Integumentary: Present: warm and dry Neurologic: Present: no focal deficit Musculoskeletal: Present: erythema (LE bilat) Psychiatric: Present: mood/affect appropriate, cooperative - Lab 04/20/17 03:26 04/20/17 03:26 Most recent lab results Calcium 10.0 mg/dL (8.6-10.8) 04/20/17 03:26 Magnesium 2.0 mg/dL (1.6-2.6) 04/18/17 18:45 Consult Discharge Plan - Plan Referrals: Damaso Francisco DO [Primary Care Provider] - 04/30/17 9:30 am (please follow up as schedule...)
[2017-04-20] MEDS ORDERED: Mannitol 25% vial 12.5 GM/50 ML VIAL IVP PRN (16:22)
[2017-04-20] MEDS ORDERED: 0.9 % Sodium Chloride 250 ML IVC PRN (16:22)
[2017-04-20 18:33] LABS: Hepatitis B Surface Antibody 95.83 mIU/mL; Hepatitis B Surface Antigen Nonreactive (Nonreactive)
[2017-04-20] MEDS ORDERED: Albumin 25% 12.5gm/50mL 25.0 GM/100 ML IV.SOLN ONE (20:40)
[2017-04-20] MEDS: diazePAM 5 MG TABLET PO SCH (22:20)
[2017-04-20] MEDS ORDERED: Albumin 25% 12.5gm/50mL 12.5 GM/50 ML IV.SOLN ONE (22:49)
[2017-04-21] MEDS: *HR* Heparin 5,000 UNIT/ML VIAL SQ SCH ×2 (05:49→17:39)
[2017-04-21 06:04] LABS: Basophils % 0.4 %; Eosinophils # 0.2 K/mcL (0.0-0.6); Eosinophils % 2.4 %; Hematocrit 32.4 % (35.3-44.9); Hemoglobin 9.5 g/dL (11.5-15.4); Immature Granulocytes % 0.3 % (0-4); Lymphocytes # 1.3 K/mcL (0.6-4.6); Lymphocytes % 19.5 %; Mean Corpuscular HGB Conc 29.3 g/dL (31.6-35.5); Mean Corpuscular Hemoglobin 32.2 pg (28.0-33.3); Mean Corpuscular Volume 109.8 fL (83.0-100.0); Mean Platelet Volume 11.1 fL (9.4-12.4); Monocytes # 0.5 K/mcL (0.0-1.3); Monocytes % 8.1 %; Neutrophils # 4.6 K/mcL (1.6-8.9); Platelet Count 104 K/mcL (140-400); Red Blood Count 2.95 M/mcL (3.82-4.97); Red Cell Distribution Width 17.9 % (11.5-14.5); Segmented Neutrophils % 69.3 %
[2017-04-21 06:11] LABS: Albumin 3.3 g/dL (3.5-5.0); Albumin/Globulin Ratio 0.9 (1.1-2.2); Bilirubin,Total 1.2 mg/dL (0.2-1.2); Calcium 9.4 mg/dL (8.6-10.8); Globulin 3.6 g/dL (2.4-3.5); Potassium 4.2 mEq/L (3.5-4.5); Total Protein 6.9 g/dL (6.0-8.3)
[2017-04-21] MEDS: Gabapentin 300 MG CAPSULE PO SCH ×2 (08:30→22:24)
[2017-04-21] MEDS: Insulin NPH/REG 70/30 100 UNIT/ML (x5UNIT) SQ SCH ×2 (08:30→17:41)
[2017-04-21] MEDS: Aspirin 81 MG TAB.CHEW PO SCH (08:30)
[2017-04-21] MEDS: Renal Vitamin 1 MG CAPSULE PO SCH (08:30)
[2017-04-21] MEDS: cefTRIAXone 1,000 MG in Water for inj. (sterile) 10 ML IVP SCH (08:30)
[2017-04-21] MEDS: Insulin LISPRO 300 UNITS/3 ML VIAL SQ SCH ×4 (08:30→22:23)
[2017-04-21] MEDS ORDERED: 0.9 % Sodium Chloride 250 ML IVC PRN (09:32)
[2017-04-21] MEDS ORDERED: Albumin 25% 12.5gm/50mL 12.5 GM/50 ML IV.SOLN IVPB PRN (09:32)
[2017-04-21] MEDS ORDERED: Albumin 25% 12.5gm/50mL 12.5 GM/50 ML IV.SOLN ONE (09:43)
[2017-04-21] MEDS ORDERED: 0.9 % Sodium Chloride 1,000 ML PRIME SCH (09:45)
--- NOTE | 2017-04-21 10:04 | Nephrology Progress Note ---
Date of Encounter: 04/21/17 Time of Encounter: 10:40 - Assessment and Plan (1) ESRD (end stage renal disease) on dialysis Current Visit: Yes Status: Chronic HD planned today with goal UD of 2-3kg if hemodynamics tolerate Plan to give albumin and midodrine at the beginning of HD Will plan for extra UF tomorrow if needed for fluid overload Lytes WNL Continue renal diet (2) Cellulitis Current Visit: Yes Status: Acute Antibiotics per primary team Qualifiers: Site of cellulitis: extremity Site of cellulitis of extremity: lower extremity Laterality: unspecified laterality Qualified Code(s): L03.119 - Cellulitis of unspecified part of limb Subjective Interval history: Interim events noted, pt admitted for cellulitis. Pt seen and examined with no new complaints. Objective - Vital Signs Vital signs: Vital Signs Temp Pulse Resp BP Pulse Ox 04/21/17 08:14 104/73 04/21/17 07:15 98.7 F 86 16 58/31 94 04/21/17 05:00 98.3 F 78 16 105/48 92 04/21/17 00:35 97.6 F 16 110/58 04/21/17 00:25 95/54 04/21/17 00:10 103/52 04/20/17 23:55 102/43 04/20/17 23:40 93/54 04/20/17 23:25 104/50 04/20/17 23:10 94/46 04/20/17 22:55 117/58 04/20/17 22:25 132/46 04/20/17 21:55 104/86 04/20/17 21:25 115/56 04/20/17 20:55 97.4 F L 16 118/80 04/20/17 19:04 97.9 F 68 16 87/41 96 04/20/17 17:16 97.6 F 65 20 131/73 96 04/20/17 11:02 97.7 F 63 16 120/64 98 Intake and Output 04/20/17 04/21/17 04/21/17 23:59 07:59 15:59 Intake Total 840 / 840 50 / 50 0 / 0 Output Total 0 / 0 2600 / 2600 0 / 0 Balance 840 / 840 -2550 / -2550 0 / 0 Intake: IV Fluids 50 / 50 Flexbumin 12.5 gm In 50 ml As . 50 / 50 ROUTE .STK-MED ONE Rx#: [id number] Oral 240 / 240 0 / 0 Intake, Rinseback and Flushes 600 / 600 Output: Urine 0 / 0 0 / 0 Total Dialysis (HD) Output 2600 / 2600 Other: Stool Size Moderate Stool Consistency formed Stool Color Brown # Bowel Movements 1 Weight 102.194 kg Blood Glucose* 148 240 Hemodialysis Net Fluid Removed 7 1999 (mL) Patient Weight 04/21/17 23:59 Weight 102.194 kg - Lab 04/21/17 05:45 04/21/17 05:45 Most recent lab results Calcium 9.4 mg/dL (8.6-10.8) 04/21/17 05:45 Magnesium 2.0 mg/dL (1.6-2.6) 04/18/17 18:45 Consult Discharge Plan - Plan Referrals: Damaso Francisco DO [Primary Care Provider] - 04/30/17 9:30 am (please follow up as schedule...)
--- NOTE | 2017-04-21 11:35 | Internal Med Progress Note ---
Date of Encounter: 04/21/17 Time of Encounter: 08:00 - Assessment and plan (1) Cellulitis Current Visit: Yes Status: Acute Assessment and plan: B/L which is unusual. No skin tears. c/w ceftriaxone for another day. likely d/ c tomorrow. Negative for DVT. f/u on cultures. Qualifiers: Site of cellulitis: extremity Site of cellulitis of extremity: lower extremity Laterality: unspecified laterality Qualified Code(s): L03.119 - Cellulitis of unspecified part of limb (2) ESRD (end stage renal disease) on dialysis Current Visit: Yes Status: Chronic Assessment and plan: Nephrology consulted for HD purposes. M/W/F dialysis. plans for HD today (3) Transaminitis Current Visit: No Status: Acute Assessment and plan: ALK phos is elevated but better compared to last stay. She is s/p ERCP at [place] per patient and had 2 stones extracted. Finished outpatient abx. Will check CMP tomorrow (4) Atrial fibrillation with normal ventricular rate Current Visit: Yes Status: Chronic Assessment and plan: Rate controlled. On ASA. No anticoags due to history of bleeding. Normal TSH (5) Diabetes Current Visit: Yes Status: Acute Assessment and plan: c/w NPH 10 units. Glucose elevated. I encouraged her to let nursing staff dose it. monitor for hypoglycemia. Encourage PO. c/w SSI. c/w accuchecks. Qualifiers: Diabetes mellitus type: type 2 Diabetes mellitus complication status: with kidney complications Diabetes mellitus complication detail: with chronic kidney disease Diabetes mellitus exterminator termite insulin use: with halfway use Chronic kidney disease stage: on chronic dialysis Qualified Code(s): E11.22 - Type 2 diabetes mellitus with diabetic chronic kidney disease; N18.6 - End stage renal disease; Z99.2 - Dependence on renal dialysis; Z99.2 - Dependence on renal dialysis; Z99.2 - Dependence on renal dialysis; N18.6 - End stage renal disease; N18.6 - End stage renal disease; N18.6 - End stage renal disease ; Z79.4 - terminal computer operator (current) use of insulin; Z79.4 - terminal computer operator (current) use of insulin; Z79.4 - terminal computer operator (current) use of insulin; Z79.4 - [facility] ( current) use of insulin; Z99.2 - Dependence on renal dialysis (6) Renal mass of unknown nature Current Visit: No Status: Acute Assessment and plan: Scheduled for surgery Next Sunday at [place] (7) DVT prophylaxis Current Visit: Yes Status: Acute Assessment and plan: heparin SQ - Subjective Interval history: No acute events. Had HD last night. Patient is afebrile. She is afraid to use NPH as it drops her glucose. - Constitutional Vitals: Temp Pulse Resp BP Pulse Ox 98.7 F 86 16 104/73 94 04/21/17 07:15 04/21/17 07:15 04/21/17 07:15 04/21/17 08:14 04/21/17 07:15 General appearance: Present: cooperative, A&O X 3, morbidly obese, pleasant, no acute distress, answers questions appropriately Exam: GEN: NAD CVS: RRR. S1, S2, No m/r/g RESP: CTAB ABD: Soft, NT, ND, +BS EXT: 1+ edema. 2+ DP, No rashes but LE with erthema bilaterally NEURO: Nonfocal Internal Medicine: Result - Labs CBC & Chem 7: 04/21/17 05:45 04/21/17 05:45 Labs: Short CBC 04/21/17 Range/Units 05:45 WBC 6.7 (4.3-11.1) K/mcL Hgb 9.5 L (11.5-15.4) g/dL Hct 32.4 L (35.3-44.9) % Plt Count 104 L (140-400) K/mcL Neutrophils # 4.6 (1.6-8.9) K/mcL BMP 04/21/17 05:45 Sodium 136 Potassium 4.2 Chloride 94 L Carbon Dioxide 30 H BUN 21 H D Creatinine 4.23 H Glucose 269 H Calcium 9.4 Liver Function 04/21/17 Range/Units 05:45 Total Bilirubin 1.2 (0.2-1.2) mg/dL AST 9 (5-34) Units/L ALT 8 (0-55) Units/L Alkaline Phosphatase 312 H (38-126) Units/L Albumin 3.3 L (3.5-5.0) g/dL Consult Discharge Plan - Plan Referrals: Damaso Francisco DO [Primary Care Provider] - 04/30/17 9:30 am (please follow up as schedule...)
[2017-04-21] MEDS ORDERED: 0.9 % Sodium Chloride 2,000 ML ONE (13:49)
[2017-04-21] MEDS: diazePAM 5 MG TABLET PO SCH (22:24)
[2017-04-22 04:03] LABS: Basophils % 0.7 %; Eosinophils # 0.2 K/mcL (0.0-0.6); Eosinophils % 2.8 %; Hemoglobin 10.6 g/dL (11.5-15.4); Immature Granulocytes % 0.3 % (0-4); Lymphocytes # 1.9 K/mcL (0.6-4.6); Lymphocytes % 30.7 %; Mean Corpuscular HGB Conc 30.3 g/dL (31.6-35.5); Mean Corpuscular Hemoglobin 33.2 pg (28.0-33.3); Mean Corpuscular Volume 109.7 fL (83.0-100.0); Mean Platelet Volume 11.1 fL (9.4-12.4); Monocytes # 0.6 K/mcL (0.0-1.3); Monocytes % 9.1 %; Red Blood Count 3.19 M/mcL (3.82-4.97); Red Cell Distribution Width 17.6 % (11.5-14.5); Segmented Neutrophils % 56.4 %
[2017-04-22 04:04] LABS: Neutrophils # 3.4 K/mcL (1.6-8.9); Platelet Count 88 K/mcL (140-400)
[2017-04-22 04:21] LABS: Potassium 4.2 mEq/L (3.5-4.5)
[2017-04-22 04:22] LABS: Calcium 10.9 mg/dL (8.6-10.8)
[2017-04-22] MEDS: *HR* Heparin 5,000 UNIT/ML VIAL SQ SCH (05:47)
[2017-04-22 07:12] VITALS: BP 98/58
--- NOTE | 2017-04-22 07:17 | Discharge Summary ---
Date of Encounter: 04/22/17 Time of Encounter: 07:15 - Discharge Diagnosis (1) Cellulitis Priority: Primary Status: Acute Qualifiers: Site of cellulitis: extremity Site of cellulitis of extremity: lower extremity Laterality: unspecified laterality Qualified Code(s): L03.119 - Cellulitis of unspecified part of limb (2) ESRD (end stage renal disease) on dialysis Priority: Secondary Status: Chronic (3) Transaminitis Priority: Secondary Status: Acute (4) Atrial fibrillation with normal ventricular rate Priority: Secondary Status: Chronic (5) Diabetes Priority: Secondary Status: Acute Qualifiers: Diabetes mellitus type: type 2 Diabetes mellitus complication status: with kidney complications Diabetes mellitus complication detail: with chronic kidney disease Diabetes mellitus intermodal customer service insulin use: with usp use Chronic kidney disease stage: on chronic dialysis Qualified Code(s): E11.22 - Type 2 diabetes mellitus with diabetic chronic kidney disease; N18.6 - End stage renal disease; N18.6 - End stage renal disease; N18.6 - End stage renal disease; N18.6 - End stage renal disease; Z79.4 - [facility] (current) use of insulin; Z79.4 - keno terminal operator (current) use of insulin; Z79.4 - [facility] (current ) use of insulin; Z79.4 - keno terminal operator (current) use of insulin; Z99.2 - Dependence on renal dialysis; Z99.2 - Dependence on renal dialysis; Z99.2 - Dependence on renal dialysis; Z99.2 - Dependence on renal dialysis (6) Renal mass of unknown nature Priority: Secondary Status: Acute - Discharge Medications Prescriptions: Sulfamethoxazole/Trimeth DS [Bactrim DS] 1 each PO BID #8 tablet Home Medications: Allopurinol [Zyloprim] 100 mg PO QAM 12/30/14 [History] Aspirin 81 mg PO QAM 12/30/14 [History] Insulin NPH Hum/Reg Insulin Hm [Novolin 70-30 100 Unit/ml Vial] 25 - 35 unit SQ BID 12/30/14 [History] Levothyroxine [Synthroid] 125 mcg PO QAM 12/30/14 [History] Pantoprazole Sodium 40 mg PO BID 12/30/14 [History] Pravastatin Sodium [Pravachol] 80 mg PO QAM 12/30/14 [History] Diazepam [Valium] 5 mg PO HS 01/01/15 [History] Gabapentin [Neurontin] 600 mg PO BID 01/01/15 [History] Folic Acid/Vit Bcomp,C [Renal Vitamin Tablet] 0.8 mg PO QAM 03/30/17 [History] Oxycodone HCl/Acetaminophen [Percocet 5-325 mg Tablet] 1 tab PO BID PRN [History] Midodrine [ProAmatine] 5 mg PO DAILY 04/18/17 [History] Sevelamer [Renvela] 1,600 mg PO TIDWM 04/18/17 [History] Sulfamethoxazole/Trimeth DS [Bactrim DS] 1 each PO BID #8 tablet 04/22/17 [Rx] Allergies/Adverse Reactions: 3 Allergy/AdvReac Type Severity Reaction Status Date / Time amitriptyline [From Triavil] Allergy See Verified 01/01/15 13:15 Comments azithromycin [From Zithromax] Allergy Difficulty Verified 01/01/15 13:15 Breathing Cortisone Allergy Rash Verified 01/01/15 13:15 perphenazine [From Triavil] Allergy See Verified 01/01/15 13:15 Comments tape Allergy Rash Uncoded 01/01/15 13:15 Date of admission: 04/18/17 21:14 Primary care physician: Damaso Francisco, Consults: 04/18/17 21:19 Consult for Pharmacy Education [CONS] Routine Reason for Consult: pharmacy to dose vancomycin Call Completed: No 04/18/17 21:57 Consult to Pastoral Services [CONS] Routine Comment: Consult to Crisis Counselor [CONS] Routine Reason for SW Consult: patient from [facility], rehab 04/20/17 16:30 Consult to Dialysis [CONS] ONCE 04/21/17 07:22 Consult to Physical Therapy [CONS] Routine Comment: Evaluate, develop and implement POC Reason for Consult: PT eval 04/21/17 09:45 Consult to Dialysis [CONS] ONCE - Patient Status Disposition: Home, Self-Care Condition: Fair Overall status at discharge: patient is back to baseline - Discharge Instructions Instructions: Atrial Fibrillation (DC), Cellulitis (DC), Diabetes Mellitus Type 2 in Adults (DC) Follow Up With: Damaso Francisco DO [Primary Care Provider] - 04/30/17 9:30 am (please follow up as schedule...) - Diet and Activity Diet: diabetic diet, other (renal diet) Hospital course: Ms. Ocampo is a 76 year old female with past medical history of ESRD on HD, atrial fibrillation, GI bleed, diabetes, hypertension and CHF. Patient presented to the ED for bilateral lower leg edema and redness. Patient was at hemodialysis today and there was concern for cellulites. Patient was advised to go to ED. she was admitted under the hospitalist service put on IV antibiotics and was discharged on Bactrim. She received 3 days' worth of IV antibiotics. I did check a lower extremity Doppler and DVT was ruled out. She is to finish Bactrim for 4 more days. She is scheduled for a renal mass resection at [place] this coming Sunday at which time she will be done with oral antibiotics and I believe she may proceed to surgery with no issues. She was resumed on her scheduled dialysis while she was hospitalized as nephrology was following. He was stable for discharge on 04/22/2017. - Time Spent with Patient Total time spent providing and/or coordinating discharge services: - Constitutional Vitals: Temp Pulse Resp BP Pulse Ox 98.1 F 89 16 98/58 92 04/22/17 07:11 04/22/17 07:11 04/22/17 07:11 04/22/17 07:11 04/22/17 07:11 General appearance: Present: cooperative, A&O X 3, morbidly obese, pleasant, no acute distress, answers questions appropriately Exam: GEN: NAD CVS: RRR. S1, S2, No m/r/g RESP: CTAB ABD: Soft, NT, ND, +BS EXT: 1+ edema. 2+ DP, No rashes but LE with erthema bilaterally NEURO: Nonfocal
[2017-04-22] MEDS: Insulin LISPRO 300 UNITS/3 ML VIAL SQ SCH (08:07)
[2017-04-22] MEDS: Renal Vitamin 1 MG CAPSULE PO SCH (08:07)
[2017-04-22] MEDS: Insulin NPH/REG 70/30 100 UNIT/ML (x5UNIT) SQ SCH (08:07)
[2017-04-22] MEDS: Gabapentin 300 MG CAPSULE PO SCH (08:07)
[2017-04-22] MEDS: Aspirin 81 MG TAB.CHEW PO SCH (08:07)
[2017-04-22] MEDS ORDERED: Sulfamethoxazole/Trimeth DS 1 EACH TABLET PO SCH (09:00)
== END 2017-04-22 11:18 | disposition home or self-care (01) | DRG 602 ==
LOC: EMEROO 15:00 → 2ANU 15:00
PROVIDERS: ADMIT Internal Medicine; ATTEND Internal Medicine

== ENCOUNTER 2017-11-21 12:12 | Observation (INO) ==
--- NOTE | 2017-11-21 12:20 | Emergency Department Note ---
Disposition Clinical Impression: Pre-syncope, First degree atrioventricular block, ESRD on dialysis Hypotension Qualifiers: Hypotension type: unspecified hypotension type Qualified Code(s): I95.9 - Disposition: Admitted As Inpatient Condition: Fair General Adult HPI - General Chief complaint: ED General Medical Stated complaint: hypotension Time Seen by Provider: 11/21/17 12:14 Source: patient Mode of arrival: EMS Limitations: no limitations Nursing Notes Reviewed: Yes Vital Signs Reviewed: Yes - History of Present Illness HPI Narrative: 77 year old female presents to the emergency department with concern for hypotension. Reported blood pressure was 60/28 at the dialysis center. Patient had multiple blood pressures there that were the same. Patient reports having episode of lightheadedness 45 minutes prior to her dialysis appointment. Patient did not have dialysis. Patient reports no slurred speech, any neurological allergies. Patient denies any fever, cough, shortness of breath, patient does not produce urine. - Related Data Home Medications Medication Instructions Recorded Confirmed Allopurinol [Zyloprim] 100 mg PO QAM 12/30/14 11/21/17 Aspirin 81 mg PO QAM 12/30/14 11/21/17 Insulin NPH Hum/Reg Insulin Hm 15 - 20 unit SQ BID 12/30/14 11/21/17 [Novolin 70-30 100 Unit/ml Vial] Levothyroxine [Synthroid] 125 mcg PO QAM 12/30/14 11/21/17 Pantoprazole Sodium 40 mg PO BID 12/30/14 11/21/17 Pravastatin Sodium [Pravachol] 80 mg PO QAM 12/30/14 11/21/17 Gabapentin [Neurontin] 600 mg PO HS 01/01/15 11/21/17 Folic Acid/Vit Bcomp,C [Renal 0.8 mg PO QAM 03/30/17 11/21/17 Vitamin Tablet] Sevelamer [Renvela] 1,600 mg PO TIDWM 04/18/17 11/21/17 Albuterol Sulfate [Proair Hfa] 2 puff IH QID 08/02/17 11/21/17 Midodrine HCl 10 mg PO 3XW 11/21/17 11/21/17 Previous Rx's Medication Instructions Recorded Oxycodone HCl/Acetaminophen 1 tab PO Q6H PRN 2 Days #8 tablet 08/08/17 [Percocet 5-325 mg Tablet] diazePAM [Valium] 5 mg PO HS 3 Days #3 tablet 08/08/17 Allergies Allergy/AdvReac Type Severity Reaction Status Date / Time amitriptyline [From Triavil] Allergy See Verified 01/01/15 13:15 Comments azithromycin [From Zithromax] Allergy Difficulty Verified 01/01/15 13:15 Breathing Cortisone Allergy Rash Verified 01/01/15 13:15 perphenazine [From Triavil] Allergy See Verified 01/01/15 13:15 Comments tape Allergy Rash Uncoded 01/01/15 13:15 All systems ED: reviewed and negative except as stated. Review of Systems: As Per HPI Constitutional: Denies: fever Cardiovascular: Denies: chest pain, palpitations Respiratory: Denies: cough, dyspnea Gastrointestinal: Denies: abdominal pain, nausea, vomiting Musculoskeletal: Denies: back pain Neurological: Reports: vertigo. Denies: headache, weakness, numbness, paresthesias Past Medical History - Past Medical History Medical history: Reports: atrial fibrillation, cancer, diabetes, dialysis, GI bleed, hypertension, renal disease, thyroid disease Surgical history: Reports: appendectomy, cholecystectomy, hip replacement, hysterectomy, other Psychiatric history: Reports: no psych history - Social History Smoking Status: Never smoker Smokeless Tobacco Status: No Alcohol use: Reports: none Drug use: Reports: none Physical Exam - Head Head exam: atraumatic - Eye Eye exam: Present: EOMI - ENT ENT exam: normal oropharynx - Neck Neck exam: Present: trachea midline - Chest Chest inspection: Present: symmetric chest wall rise - Respiratory Respiratory exam: Present: normal lung sounds bilaterally. Absent: respiratory distress - Cardiovascular Cardiovascular exam: Present: normal rhythm, bradycardia - Abdominal Exam Abdominal exam: Present: soft, Non-Tender. Absent: distention, guarding, rebound, rigidity - Extremities Exam Extremities exam: Present: normal capillary refill - Back Exam Back exam: Absent: CVA tenderness (R), CVA tenderness (L) - Neurological Exam Neurological exam: Present: alert, oriented X3, CN II-XII intact - Psychiatric Psychiatric exam: Present: normal affect, normal mood - Skin Skin exam: Present: warm, dry, intact, normal color Course - Reevaluation(s) Reevaluation #1: Patient's PICC line infiltrated as contrast was being administered. Patient's right upper extremity is soft, good pulses. No concern for compartment syndrome. Time: 15:13 Vital Signs Temperature 97.2 F L 11/21/17 12:15 Pulse Rate 53 11/21/17 12:15 Respiratory Rate 18 11/21/17 12:15 Blood Pressure 123/93 11/21/17 12:15 O2 Sat by Pulse Oximetry 95 11/21/17 12:15 Temperature 97.6 F 11/22/17 07:24 Pulse Rate 54 11/22/17 07:24 Respiratory Rate 21 11/22/17 07:24 Blood Pressure 109/61 11/22/17 07:24 O2 Sat by Pulse Oximetry 97 11/22/17 07:24 Oxygen Delivery Oxygen Delivery Room Air Medical Decision Making - MDM Narrative Medical decision making narrative: 77-year-old female presents emergency department with concern for hypotension and lightheadedness. Patient was not hypotensive here in the emergency department. EKG revealed first-degree AV block. This is new for patient she was also bradycardic as well. Patient recent EKGs revealed A. fib with RVR with a rate that always been much higher. Patient not currently on any beta lay medications. We obtain CT scan of the head without contrast and this did not reveal any intracranial abnormality. Basilar access was very difficult to obtain. A power glide was inserted by her PICC team. CTA of the neck and head was attempted, but the contrast infiltrated the right upper shoulder and time administration. The area was examined afterwards, and did not reveal any significant swelling or firmness in the right upper extremity. Patient's right upper shoulder was still neurovascularly intact. Bedside ultrasound revealed that the power glide catheter went through the vein. It was predicted that the pressure from the contrast study cause a catheter to blow through the wall of the vein. I spoke with Dr. Lemus from vascular surgery, and they stated that this is most likely the cause and that there was nothing that could be done at this time and the patient will just need close follow-up. Patient had chest x- ray did not reveal possible bibasilar infiltrates versus pneumonia. At this time, patient does not have a leukocytosis. She is not reporting any cough or dyspnea or sputum production. We will not cover her for pneumonia at this time as clinically, I do not suspect it. My attending, Dr. Shani Juarez spoke with interventional radiology regarding the matter as well. IV insertion was made through a right external jugular vein. I spoke with the hospitalist and they agree to accept patient for admission. Spoke about need for MRI for further workup. Patient agree with plan for admission. Patient not at any time was hypotensive here in the emergency department. Patient reports always being slightly hypotensive and takes Midodrine before her dialysis on Sunday and Sunday. Patient has taken her dose today. Head CT 11/21/17 12:25 IMPRESSION: 1. Failed CTA of the neck secondary to infiltration of the patient's PICC line. Contrast extravasation shown in the patient's right arm. 2. Unenhanced evaluation shows no definite abnormality in the [id number]. There is moderate atherosclerosis involving the bilateral common carotid bifurcation as well as the takeoff of the left subclavian artery. 3. No intracranial hemorrhage or extra-axial fluid collection in the head. Changes of microvascular ischemia noted. D/ / Rodríguez Hernadez / Rodríguez Hernadez Interpreting Provider: Rodríguez Hernadez Neck CTA 11/21/17 12:25 IMPRESSION: 1. Failed CTA of the neck secondary to infiltration of the patient's PICC line. Contrast extravasation shown in the patient's right arm. 2. Unenhanced evaluation shows no definite abnormality in the [id number]. There is moderate atherosclerosis involving the bilateral common carotid bifurcation as well as the takeoff of the left subclavian artery. 3. No intracranial hemorrhage or extra-axial fluid collection in the head. Changes of microvascular ischemia noted. D/ / Rodríguez Hernadez / Rodríguez Hernadez Interpreting Provider: Rodríguez Hernadez Chest X-Ray 11/21/17 14:27 IMPRESSION: Bibasilar infiltrates could represent atelectasis or pneumonia D/ / Elijah Lamas MD / Elijah Lamas MD Interpreting Provider: Elijah Lamas MD - Lab Data Result diagrams: 11/22/17 05:04 11/22/17 05:04 Lab Results 11/21/17 11/21/17 Range/Units 12:48 12:48 WBC 9.1 (4.3-11.1) K/mcL RBC 3.26 L (3.82-4.97) M/mcL Hgb 11.3 L (11.5-15.4) g/dL Hct 35.9 (35.3-44.9) % MCV 110.1 H (83.0-100.0) fL MCH 34.7 H (28.0-33.3) pg MCHC 31.5 L (31.6-35.5) g/dL RDW 16.2 H (11.5-14.5) % Plt Count 122 L (140-400) K/mcL MPV 10.9 (9.4-12.4) fL Immature Gran % 0.3 (0-4) % Seg Neutrophils % 69.8 % Lymphocytes % 21.3 % Monocytes % 6.8 % Eosinophils % 1.5 % Basophils % 0.3 % Neutrophils # 6.4 (1.6-8.9) K/mcL Lymphocytes # 1.9 (0.6-4.6) K/mcL Monocytes # 0.6 (0.0-1.3) K/mcL Eosinophils # 0.1 (0.0-0.6) K/mcL Basophils # 0.0 (0.0-0.2) K/mcL Platelet Estimate Slight Decrease L (Normal) Anisocytosis 1+ A (Not Present) Macrocytosis Present A (Not Present) Sodium 134 L (136-145) mEq/L Potassium 4.8 (3.5-5.1) mEq/L Chloride 97 L (98-107) mEq/L Carbon Dioxide 23 (23-29) mEq/L BUN 47 H (8-23) mg/dL Creatinine 6.46 H (0.60-1.20) mg/dL Est GFR ( Amer) 8 L (> 60) Est GFR (Non-Af Amer) 6 L (> 60) BUN/Creatinine Ratio 7 (6-26) Glucose 58 L (70-105) mg/dL Calculated Osmolality 288 (280-300) Calcium 9.7 (8.6-10.3) mg/dL TSH 7.730 H (0.340-5.600) mcIU/mL Attestation Statement - Attestation Attestation: I examined this patient and my medical decision-making was reviewed with the Resident Physician, Dr. Santos. I agree with the documented findings, disposition and treatment plan as described except to the extent set forth below. Pt is a 77 yo wf, hx of ESRD on HD who was sent to us from her HD center for reported hypotension prior to the start of her HD today. Pt also reporting lightheadedness/dizziness, worse with standing. 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 Denies any other associated sxs. Here on arrival she is normotensive, sinus bradycardia. Pt c/o intermittent "dizziness", feels at times it has a room-spinning component, but no other assocd sxs. No CALLES, no tinnitus, no visual disturbances, no focal weakness/ numbness, no CP/press, no SOB/cough, no F/C, no N/V. Pt appears well on arrival and in NAD. I agree with pt's PE findings. VSS on arrival. Pt underwent lab evaluation, EKG, CXR, CTA head/neck for further neuro eval. EKG shows sinus trina, with no ST/T wave changes. Pt had delayed testing due to difficulty obtaining vascular access. Unable to obtain peripheral IV after multiple attempts with/withut US. PICC team consulted , and placed a powerglide to R basilic V. Pt sent for CTA. Throughout ED course , pt with stable VS and no change in status. Pt returned from CT and electroneurodiagnostic technician reported that her PICC "blew" when administering contrast. I have never heard of this happening before, so I notified the PICC team, who came back to evaluate pt's PICC line. Pt with no significant pain/swelling to RUE, and NVI with soft compartments on return from CT scanner. PICC team, using US confirmed correct placement of PICC line in vein, but when following to distal tip, it was noted that the distal tipp of the PICC extended outside the basilic vein, and you could visualize contrast in surrounding tissues. They removed the line, and no visible damage to the catheter itself. They attempted peripheral line access to cephalic v, but unsuccessful. Pt remained with stable VS, and otherwise resting comfortably. Because I had not experienced a PICC failure like this in the past, nor had the PICC team, I contacted Dr. Lemus, on for vascular sx, and he stated that the contrast will resorb, and vein will seal itself off. Just recommended observation for RUE neurovasc checks. Agreed to consult if any concerns while inpatient. I also contacted IR, Dr. Ham, and explained what happened. She also stated that she had never seen this happen before. She checked and there is no current recommendations for treatment in this situation, besides RUE elevation, warm compresses and observation. We instituted warm compresses, and elevation and pt with no complaints, no signs/ concerns for pain/swelling/compartment syndrome, or venous congestion. CXR showing atelectasis vs infiltrates, but pt with no URI sxs, no hypoxia/SOB, no clinical sxs of pneumonia, with normal WBC. Vitals remain stable. Remainder of labs stable. Feel pt would benefit from observation for RUE NV checks, cardiac monitoring and eval of symptomatic bradycardia, and neuro eval for dizziness. noncon CT shows atherosclerosis, otherwise NAP. Case discussed with hospitalist , as well as RUE incident. They agree with holding antibx at this time. I placed a R external jugular IV for vasc access. Nephrology was consulted for HD , Dr. Arreola consulted from ED.
[2017-11-21] MEDS ORDERED: Isovue-370 500 ML INFUS..BTL IV ONE (12:25)
[2017-11-21 13:21] LABS: Basophils % 0.3 %; Eosinophils # 0.1 K/mcL (0.0-0.6); Eosinophils % 1.5 %; Hematocrit 35.9 % (35.3-44.9); Hemoglobin 11.3 g/dL (11.5-15.4); Immature Granulocytes % 0.3 % (0-4); Lymphocytes # 1.9 K/mcL (0.6-4.6); Lymphocytes % 21.3 %; Mean Corpuscular HGB Conc 31.5 g/dL (31.6-35.5); Mean Corpuscular Hemoglobin 34.7 pg (28.0-33.3); Mean Corpuscular Volume 110.1 fL (83.0-100.0); Mean Platelet Volume 10.9 fL (9.4-12.4); Monocytes # 0.6 K/mcL (0.0-1.3); Monocytes % 6.8 %; Platelet Count 122 K/mcL (140-400); Red Blood Count 3.26 M/mcL (3.82-4.97); Red Cell Distribution Width 16.2 % (11.5-14.5); Segmented Neutrophils % 69.8 %
[2017-11-21 13:30] LABS: Calcium 9.7 mg/dL (8.6-10.3); Potassium 4.8 mEq/L (3.5-5.1)
[2017-11-21 13:33] LABS: Neutrophils # 6.4 K/mcL (1.6-8.9)
[2017-11-21 13:52] LABS: Anisocytosis 1+ (Not Present); Macrocytosis Present (Not Present); Platelet Estimate Slight Decrease (Normal)
[2017-11-21 13:59] LABS: Thyroid Stimulating Hormone 7.73 mcIU/mL (0.340-5.600)
[2017-11-21] MEDS ORDERED: Naloxone 0.4 MG/ML INJ IVP PRN (17:32)
[2017-11-21] MEDS ORDERED: D5% in Water 1,000 ML IVC PRN (17:37)
[2017-11-21] MEDS ORDERED: *HR* Dextrose 50 % in Water (Syg) 50 ML SYRINGE IVP PRN (17:37)
[2017-11-21] MEDS ORDERED: Dextrose Gel 15 GM/37.5 ML TUBE PO PRN ×2 (17:37)
--- NOTE | 2017-11-21 17:48 | Internal Med History&Physical ---
<Hilda Diana Nadiya - Last Filed: 11/21/17 18:29> Date of Encounter: 11/21/17 Time of Encounter: 17:46 Internal Medicine - H&P: HPI Chief complaint: Bradycardia and dizziness prior to HD treatment Plans for Post Hospital Care: Home History of present illness: Ms. Ocampo is a 77 year old female with a hx of ESRD, DM type II, thyriod disease, pulmonary congestion, and A-fib. The patient was admitted from the dialysis center, and became dizzy with a hypotensive episode. The patient bp was in the 60s systolicalarrival to unit patient systolic in the 130s, the heart rate remains in the 50s. The PICC line was placed in the right arm, during a procedure with contrast the line blew and had top be removed. Ed physicians, hospitalist and myself discussed in detail her iv options and the patient agreed to have a IO placed. The patient did not want a central line. Patient indicated she thought about going home instead of staying overnight due to having a dermatology appointment at 0740 in the morning tomorrow. Discussed this with the patient, then she decided to stay. Chest x-ray showed bibasilar infiltrates, atelectasis versus pneumonia however patient's white blood cell count is currently 9.1. Denies cough, congestion, and fever. CT of head and neck completed. Neck was failed. Moderate atherosclerosis noted in bilateral common carotid bifurcation, head results showed microvascular ischemia. The patient was still reporting dizziness while in ED. Past Med Surg Social Fam HX - Past Medical History Medical history: atrial fibrillation, cancer, diabetes, dialysis, GI bleed, hypertension, renal disease, thyroid disease Additional medical history: hypotension Psychiatric history: no psych history - Past Surgical History Surgical History: appendectomy, cholecystectomy, hip replacement, hysterectomy, other Additional surgical history: back, L kidney removed - Social History Smoking Status: Never smoker Smokeless Tobacco Status: No Alcohol use: none Drug use: none Internal Medicine - H&P: Meds Allopurinol [Zyloprim] 100 mg PO QAM 12/30/14 [History] Aspirin 81 mg PO QAM 12/30/14 [History] Insulin NPH Hum/Reg Insulin Hm [Novolin 70-30 100 Unit/ml Vial] 15 - 20 unit SQ BID 12/30/14 [History] Levothyroxine [Synthroid] 125 mcg PO QAM 12/30/14 [History] Pantoprazole Sodium 40 mg PO BID 12/30/14 [History] Pravastatin Sodium [Pravachol] 80 mg PO QAM 12/30/14 [History] Gabapentin [Neurontin] 600 mg PO HS 01/01/15 [History] Folic Acid/Vit Bcomp,C [Renal Vitamin Tablet] 0.8 mg PO QAM 03/30/17 [History] Sevelamer [Renvela] 1,600 mg PO TIDWM 04/18/17 [History] Albuterol Sulfate [Proair Hfa] 2 puff IH QID 08/02/17 [History] Oxycodone HCl/Acetaminophen [Percocet 5-325 mg Tablet] 1 tab PO Q6H PRN 2 Days # 8 tablet 08/08/17 [Rx] diazePAM [Valium] 5 mg PO HS 3 Days #3 tablet 08/08/17 [Rx] Midodrine HCl 10 mg PO 3XW 11/21/17 [History] 3 Allergy/AdvReac Type Severity Reaction Status Date / Time amitriptyline [From Triavil] Allergy See Verified 01/01/15 13:15 Comments azithromycin [From Zithromax] Allergy Difficulty Verified 01/01/15 13:15 Breathing Cortisone Allergy Rash Verified 01/01/15 13:15 perphenazine [From Triavil] Allergy See Verified 01/01/15 13:15 Comments tape Allergy Rash Uncoded 01/01/15 13:15 All Systems PM: A 10-system review of systems was performed and is negative for pertinent findings except as documented above in the HPI. - Constitutional Constitutional: no chills, no fever(s), no malaise - EENT Eyes: no change in vision, no discharge, no pain, no photophobia Ears: no ear discharge, no ear pain, no tinnitus Nose, mouth and throat: no dysphagia, no nasal discharge, no neck pain, no sore throat - Cardiovascular Cardiovascular ROS IM: lightheadedness, no chest pain, no diaphoresis, no dyspnea, no palpitations, no syncope - Respiratory Respiratory: no cough, no dyspnea, no wheezing, no chest congestion, no excessive phlegm production - Gastrointestinal Gastrointestinal: no abdominal pain, no diarrhea, no hematemesis, no hematochezia, no melena, no nausea, no vomiting - Genitourinary Genitourinary: no change in urinary stream, no dysuria, no flank pain, no hematuria - Musculoskeletal Musculoskeletal ROS IM: no numbness, no tingling - Integumentary Integumentary IM: other (Bruising to left arm/tunnel cath fistula, + bruit and + thrill), no rash, no unusual bruising - Neurological Neurological ROS: no confusion, no convulsions, no focal weakness, no numbness, no tingling, no tremor(s) - Hematologic/Lymphatic Hematologic/Lymphatic: no easy bruising - Constitutional Vitals: Temp Pulse Resp BP Pulse Ox 97.2 F L 53 18 97/56 97 11/21/17 12:15 11/21/17 15:16 11/21/17 15:16 11/21/17 15:24 11/21/17 15:16 - Head Head exam: Present: atraumatic, normocephalic - Eye Eye exam: Present: PERRL, conjuntiva pink, sclera anicteric Pupils: Present: PERRL - Neck Neck exam general surgery: Present: supple, trachea midline. Absent: lymphadenopathy - Respiratory Respiratory exam: Present: CTAB. Absent: accessory muscle use, rales, respiratory distress, rhonchi, wheezes - Cardiovascular Cardiovascular exam: Present: RRR, +S1, +S2. Absent: diastolic murmur, gallop, rubs, systolic murmur - GI/Abdominal GI/Abdominal exam: Present: normal bowel sounds, soft, no peritoneal signs. Absent: distended, tenderness - Extremities Exam Extremities exam: Present: warm, radial pulses palpable and symmetrical. Absent : calf tenderness, cyanotic, pedal edema - Neurological Exam Neurological exam: Present: CN II-XII intact, oriented X3, no focal deficits. Absent: pronater drift, facial droop, speech deficit - Skin Skin exam: Present: dry, intact Internal Med - H&P Results - Labs CBC & Chem 7: 11/21/17 12:48 11/21/17 12:48 - Assessment and plan (1) ESRD (end stage renal disease) on dialysis Current Visit: No Status: Chronic Assessment and plan: Dr. Arreola was notified about the patient's admission. Patient is scheduled for HD on . Missed today d/t dizziness and hypotension Monitor daily labs (2) Dizziness Current Visit: Yes Status: Acute Assessment and plan: Orthostatic bp's daily x2 (3) Bradycardia Current Visit: Yes Status: Acute Assessment and plan: Likely related to her medications..Diazepam. Will continue midodrine in case she is dialyzed. 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 She takes midodrine on HD days. Monitor VS q shift Hypotension is currently resolved. Qualifiers: Hypotension type: unspecified hypotension type Qualified Code(s): I95.9 - Hypotension, unspecified - Time Spent With Patient Total time spent is greater than 50% in coordination of care (as documented) at patient's floor/unit and/or counseling patient: Greater than 35 minutes (Discussions with patient regarding IV access and admission) <Rolando Sharma T - Last Filed: 11/22/17 08:37> Date of Encounter: 11/22/17 Internal Medicine - H&P: HPI History of present illness: Ms. Ocampo is a 77 year old female All Systems PM: A 10-system review of systems was performed and is negative for pertinent findings except as documented above in the HPI. - Constitutional Vitals: Temp Pulse Resp BP Pulse Ox 97.6 F 54 21 109/61 97 11/22/17 07:24 11/22/17 07:24 11/22/17 07:24 11/22/17 07:24 11/22/17 07:24 Internal Med - H&P Results - Labs CBC & Chem 7: 11/22/17 05:04 11/22/17 05:04 Labs: Short CBC 11/22/17 Range/Units 05:04 WBC 6.0 (4.3-11.1) K/mcL Hgb 10.4 L (11.5-15.4) g/dL Hct 33.2 L (35.3-44.9) % Plt Count 110 L (140-400) K/mcL Neutrophils # 3.6 (1.6-8.9) K/mcL BMP 11/22/17 05:04 Sodium 129 L Potassium 5.9 H Chloride 94 L Carbon Dioxide 19 L BUN 54 H Creatinine 7.16 H Glucose 153 H Calcium 9.4 - Attending Attestation I have independently seen and examined this patient. Patient seen and examined in the emergency room. 77-year-old female with past medical history of atrial fibrillation not on anticoagulation due to history of GI bleed. End-stage renal disease on hemodialysis Sunday, Sunday and Sunday. She is known to have hypotension during hemodialysis and is on midodrine on dialysis days for this. She was referred to the emergency room for hypotension from dialysis. She also reported lightheadedness during this episode. She denies chest pain, shortness of breath, leg edema, No cough or fever or chills. No sick contacts. Blood pressure returned to normal upon presentation to the emergency room. Patient noted to have bradycardia with heart rate in the mid-50s to 60. Apparently, patients PICC line upon light was infiltrated by contrast while being prepared for neck CT angiogram. Chest x-ray shows infiltrates, however patient has no symptoms. CBC and chem otherwise at patients baseline. Head CT is unremarkable. Physical exam is unremarkable The hospitalist team including myself, the nurse practitioner Adalgisa Stevens, and Dr. Andres discussed with the ER attending and recommended patient has a peripheral line placed prior to placement on observation on the floor. The patient was also requesting to be discharged able to see her physical therapy teacher. However given her new EKG finding first-degree AV block and bradycardia, we will observe patient overnight. Nephrology has been consulted by the ER team for resumption of hemodialysis not emergently. Electrolytes are currently stable. Plan of care is as documented in STAFF [employer] DEFENSE OFFICER Adalgisa Tello documentation, I do not believe her bradycardia is the cause of her hypotension as patient is chronically hypotensive. We will however place on observation after IV access has been established by ER team. Monitor on tele overnight - Time Spent With Patient Total time spent is greater than 50% in coordination of care (as documented) at patient's floor/unit and/or counseling patient:
--- NOTE | 2017-11-21 18:34 | Event Note ---
Date of Encounter: 11/21/17 Time of Encounter: 18:34 I have independently seen and examined this patient. Patient seen and examined in the emergency room. 77-year-old female with past medical history of atrial fibrillation not on anticoagulation due to history of GI bleed. End-stage renal disease on hemodialysis Sunday, Sunday and Sunday. She is known to have hypotension during hemodialysis and is on midodrine on dialysis days for this. She was referred to the emergency room for hypotension from dialysis. She also reported lightheadedness during this episode. She denies chest pain, shortness of breath, leg edema, No cough or fever or chills. No sick contacts. Blood pressure returned to normal upon presentation to the emergency room. Patient noted to have bradycardia with heart rate in the mid-50s to 60. Apparently, patients PICC line upon light was infiltrated by contrast while being prepared for neck CT angiogram. Chest x-ray shows infiltrates, however patient has no symptoms. CBC and chem otherwise at patients baseline. Head CT is unremarkable. Physical exam is unremarkable The hospitalist team including myself, the nurse practitioner Adalgisa Stevens, and Dr. Andres discussed with the ER attending and recommended patient has a peripheral line placed prior to placement on observation on the floor. 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 However given her new EKG finding first-degree AV block and bradycardia, we will observe patient overnight. Nephrology has been consulted by the ER team for resumption of hemodialysis not emergently. Electrolytes are currently stable. Plan of care is as documented in [employer]OM[employer]PAR[employer] SALESP[employer] Adalgisa Tello documentation, I do not believe her bradycardia is the cause of her hypotension as patient is chronically hypotensive. We will however place on observation after IV access has been established by ER team. Monitor on tele overnight.
[2017-11-21] MEDS ORDERED: Insulin LISPRO 300 UNITS/3 ML VIAL SQ SCH (21:00)
[2017-11-21] MEDS ORDERED: Insulin NPH/REG 70/30 100 UNIT/ML (x5UNIT) SQ SCH (21:00)
[2017-11-21] MEDS ORDERED: diazePAM 5 MG TABLET PO SCH (21:00)
[2017-11-21] MEDS ORDERED: Gabapentin 300 MG CAPSULE PO SCH (21:00)
[2017-11-21] MEDS: *HR* OxyCODONE/APAP 5/325 TABLET PO PRN (22:00)
[2017-11-22 05:30] LABS: Basophils % 0.7 %; Eosinophils # 0.2 K/mcL (0.0-0.6); Eosinophils % 2.5 %; Hematocrit 33.2 % (35.3-44.9); Hemoglobin 10.4 g/dL (11.5-15.4); Immature Granulocytes % 0.3 % (0-4); Lymphocytes # 1.7 K/mcL (0.6-4.6); Lymphocytes % 28.2 %; Mean Corpuscular HGB Conc 31.3 g/dL (31.6-35.5); Mean Corpuscular Hemoglobin 33.8 pg (28.0-33.3); Mean Corpuscular Volume 107.8 fL (83.0-100.0); Mean Platelet Volume 10.8 fL (9.4-12.4); Monocytes # 0.4 K/mcL (0.0-1.3); Monocytes % 7.1 %; Neutrophils # 3.6 K/mcL (1.6-8.9); Platelet Count 110 K/mcL (140-400); Red Blood Count 3.08 M/mcL (3.82-4.97); Red Cell Distribution Width 16.4 % (11.5-14.5); Segmented Neutrophils % 61.2 %
[2017-11-22 05:54] LABS: Calcium 9.4 mg/dL (8.6-10.3); Potassium 5.9 mEq/L (3.5-5.1)
[2017-11-22] MEDS ORDERED: 0.9 % Sodium Chloride 500 ML IVC ONE (07:30)
[2017-11-22] MEDS ORDERED: Insulin NPH/REG 70/30 100 UNIT/ML (x5UNIT) SQ SCH (07:30)
[2017-11-22] MEDS ORDERED: 0.9 % Sodium Chloride 250 ML IVC PRN (08:11)
[2017-11-22] MEDS: *HR* OxyCODONE/APAP 5/325 TABLET PO PRN (08:12)
[2017-11-22] MEDS: Insulin LISPRO 300 UNITS/3 ML VIAL SQ SCH ×2 (08:13→11:38)
[2017-11-22] MEDS ORDERED: 0.9 % Sodium Chloride 1,000 ML PRIME SCH (08:15)
[2017-11-22] MEDS ORDERED: Renal Vitamin 1 CAP CAPSULE PO SCH (09:00)
[2017-11-22] MEDS ORDERED: Aspirin 81 MG TAB.CHEW PO SCH (09:00)
--- NOTE | 2017-11-22 12:04 | Nephrology Consult Note ---
Date of Encounter: 11/22/17 Time of Encounter: 10:30 Assessment and Plan (1) ESRD (end stage renal disease) on dialysis Current Visit: Yes Status: Chronic ESRD on HD MWF. Hypotensive episode at beginning of dialysis on Sunday. P: HD today Continue to trend electrolytes. K+ remains elevated at 5.9. Cr 7.16 Renal diet Avoid nephrotoxins (2) Hypotension Current Visit: No Status: Acute Episode of hypotension at beginning of outpatient dialysis; improved BPs at encounter show 100-120 systolic Plan for HD as above 1st degree AV block on ECG that is new, no rate control meds, but does have qHS Valium home med held while inpatient per primary team; PCP and Cardiology follow -up outpatient Qualifiers: Hypotension type: unspecified hypotension type Qualified Code(s): I95.9 - Hypotension, unspecified History of Present Illness - Reason for Consult Consult date: 11/21/17 end stage renal disease Requesting physician: Albaro Santos - Chief Complaint ESRD on Dialysis; hypotension - History of Present Illness 77 y/o female with past medical history of ESRD on dialysis MWF-[facility], DM2, paroxysmal afib on ASA, hypothyroidism, DM2, who presented to the ED from dialysis clinic for lightheadedness and hypotension (systolic in the 60s)--at the start of her HD. While she denies chest congestion or dyspnea, CXR in the ED shows bibasilar infiltrates. She was found to be bradycardic in the 50s, with ECG showing 1st degree HB not previously seen from old records. Nephrology was consulted for dialysis management. She continues to deny dyspnea, lightheadedness and BPs have since improved slightly during the admission interval. Past Med Surg Social Fam HX - Past Medical History Medical history: atrial fibrillation, cancer, diabetes, dialysis, GI bleed, hypertension, renal disease, thyroid disease Additional medical history: hypotension Psychiatric history: no psych history - Past Surgical History Surgical History: appendectomy, cholecystectomy, hip replacement, hysterectomy, other Additional surgical history: back, L kidney removed - Social History Smoking Status: Never smoker Smokeless Tobacco Status: No Alcohol use: none Drug use: none Medications and Allergies Allopurinol [Zyloprim] 100 mg PO QAM 12/30/14 [History] Aspirin 81 mg PO QAM 12/30/14 [History] Insulin NPH Hum/Reg Insulin Hm [Novolin 70-30 100 Unit/ml Vial] 15 - 20 unit SQ BID 12/30/14 [History] Pantoprazole Sodium 40 mg PO BID 12/30/14 [History] Pravastatin Sodium [Pravachol] 80 mg PO QAM 12/30/14 [History] Folic Acid/Vit Bcomp,C [Renal Vitamin Tablet] 0.8 mg PO QAM 03/30/17 [History] Sevelamer [Renvela] 1,600 mg PO TIDWM 04/18/17 [History] Albuterol Sulfate [Proair Hfa] 2 puff IH QID 08/02/17 [History] Midodrine HCl 10 mg PO 3XW 11/21/17 [History] Gabapentin [Neurontin] 300 mg PO HS #30 capsule 11/22/17 [Rx] Levothyroxine [Synthroid] 150 mcg PO DAILY #30 tablet 11/22/17 [Rx] Sevelamer [Renvela] 1,600 mg PO TIDWM tablet 11/22/17 [Rx] 3 Allergy/AdvReac Type Severity Reaction Status Date / Time amitriptyline [From Triavil] Allergy See Verified 01/01/15 13:15 Comments azithromycin [From Zithromax] Allergy Difficulty Verified 01/01/15 13:15 Breathing Cortisone Allergy Rash Verified 01/01/15 13:15 perphenazine [From Triavil] Allergy See Verified 01/01/15 13:15 Comments tape Allergy Rash Uncoded 01/01/15 13:15 Exam - Vital Signs Vital signs: Initial Vital Signs Temp Pulse Resp BP Pulse Ox 97.2 F L 53 18 123/93 95 11/21/17 12:15 11/21/17 12:15 11/21/17 12:15 11/21/17 12:15 11/21/17 12:15 Vital Signs - Last 8 Hours Temp Pulse Resp BP Pulse Ox 11/22/17 11:45 123/35 11/22/17 11:30 103/29 11/22/17 11:15 112/32 11/22/17 11:00 90/39 11/22/17 10:45 103/41 11/22/17 10:30 91/36 11/22/17 10:15 99/32 11/22/17 10:00 92/24 11/22/17 09:45 89/33 11/22/17 09:30 78/34 11/22/17 09:15 93/35 11/22/17 09:00 97.7 F 20 101/52 11/22/17 07:24 97.6 F 54 21 109/61 97 11/22/17 05:41 97.5 F L 52 17 77/49 100 11/22/17 04:16 97.6 F 51 16 96/58 96 Intake and Output 11/21/17 11/22/17 11/22/17 23:59 07:59 15:59 Intake Total 840 / 840 Balance 840 / 840 Intake: Oral 240 / 240 Intake, Rinseback and Flushes 600 / 600 Other: Meal Breakfast Percent of Meal Consumed 100% Stool Size Moderate Stool Consistency soft Stool Color Brown # Bowel Movements 1 Weight 97.069 kg Blood Glucose* 105 137 136 Hemodialysis Net Fluid Removed 1980 (mL) Patient Weight 11/22/17 23:59 Weight 97.069 kg - General Appearance General appearance: well-developed, well-nourished, appears started age Respiratory: no kyphosis, no scoliosis Cardiology: no murmurs, no rub, no gallops, no edema, regular rate, regular rhythm, normal S1, normal S2 - Dialysis Access Dialysis Vascular Access: Arteriovenous Fistula Gastrointestinal: no guarding Integumentary: no rash, warm and dry Neurologic: no focal deficit, alert and oriented x3 Musculoskeletal: no deformities, no erythema, no cyanosis, no clubbing Psychiatric: mood/affect appropriate, cooperative Results - Lab Results 11/22/17 05:04 11/22/17 05:04 Most recent lab results Calcium 9.4 mg/dL (8.6-10.3) 11/22/17 05:04 Consult Discharge Plan - Plan Instructions: Hypothyroidism (DC) Referrals: Damaso Francisco DO [Primary Care Provider] - 12/04/17 9:30 am (in 1-2 weeks Please follow up as schedule... ) Prescriptions: Gabapentin [Neurontin] 300 mg PO HS #30 capsule Levothyroxine [Synthroid] 150 mcg PO DAILY #30 tablet
--- NOTE | 2017-11-22 12:49 | Discharge Summary ---
- NOTES TO OUTPATIENT PROVIDER Notes to Outpatient Provider: Patient hospitalized for hypotension during dialysis. She did not undergo hemodialysis and so was observed and nephrology consulted. Patient underwent dialysis today. She does have chronic hypotension and is on midodrine. Her symptoms have improved now. She is clinically stable for discharge. She also had bradycardia with heart rate in the 50s and EKG showed first-degree AV block. She is not on any rate controlling meds. She does have an elevated TSH. Will increase levothyroxine dosage to 150 g per day. She can follow up further with her primary care provider and also be referred to cardiology as outpatient Date of Encounter: 11/22/17 Time of Encounter: 09:50 - Discharge Diagnosis (1) Hypotension Priority: Primary Status: Acute Qualifiers: Hypotension type: unspecified hypotension type Qualified Code(s): I95.9 - Hypotension, unspecified (2) Bradycardia Priority: Secondary Status: Acute (3) First degree atrioventricular block Priority: Secondary Status: Acute (4) ESRD (end stage renal disease) on dialysis Priority: Secondary Status: Chronic (5) Hypothyroidism Priority: Secondary Status: Chronic Qualifiers: Hypothyroidism type: acquired Qualified Code(s): E03.9 - Hypothyroidism, unspecified Hospital course: Ms. Ocampo is a 77 year old female Patient with history of end-stage renal disease on hemodialysis, chronic hypotension on midodrine, hypothyroidism diabetes mellitus type 2, atrial fibrillation who was hospitalized here for hypotension during dialysis. She did not undergo hemodialysis yesterday and so was observed and nephrology consulted. Patient underwent dialysis today. She does have chronic hypotension and is on midodrine. Her symptoms have improved now. She is clinically stable for discharge. She also had bradycardia with heart rate in the 50s and EKG showed first-degree AV block. She is not on any rate controlling meds. She does have an elevated TSH. Will increase levothyroxine dosage to 150 g per day. She can follow up further with her primary care provider and also be referred to cardiology as outpatient Discharge discussed with: patient, nurse - Time Spent with Patient Total time spent providing and/or coordinating discharge services: Greater than 30 minutes (32 min) - Discharge Medications Prescriptions: Gabapentin [Neurontin] 300 mg PO HS #30 capsule Levothyroxine [Synthroid] 150 mcg PO DAILY #30 tablet Home Medications: Allopurinol [Zyloprim] 100 mg PO QAM 12/30/14 [History] Aspirin 81 mg PO QAM 12/30/14 [History] Insulin NPH Hum/Reg Insulin Hm [Novolin 70-30 100 Unit/ml Vial] 15 - 20 unit SQ BID 12/30/14 [History] Pantoprazole Sodium 40 mg PO BID 12/30/14 [History] Pravastatin Sodium [Pravachol] 80 mg PO QAM 12/30/14 [History] Folic Acid/Vit Bcomp,C [Renal Vitamin Tablet] 0.8 mg PO QAM 03/30/17 [History] Sevelamer [Renvela] 1,600 mg PO TIDWM 04/18/17 [History] Albuterol Sulfate [Proair Hfa] 2 puff IH QID 08/02/17 [History] Midodrine HCl 10 mg PO 3XW 11/21/17 [History] Gabapentin [Neurontin] 300 mg PO HS #30 capsule 11/22/17 [Rx] Levothyroxine [Synthroid] 150 mcg PO DAILY #30 tablet 11/22/17 [Rx] Sevelamer [Renvela] 1,600 mg PO TIDWM tablet 11/22/17 [Rx] Allergies/Adverse Reactions: 3 Allergy/AdvReac Type Severity Reaction Status Date / Time amitriptyline [From Triavil] Allergy See Verified 01/01/15 13:15 Comments azithromycin [From Zithromax] Allergy Difficulty Verified 01/01/15 13:15 Breathing Cortisone Allergy Rash Verified 01/01/15 13:15 perphenazine [From Triavil] Allergy See Verified 01/01/15 13:15 Comments tape Allergy Rash Uncoded 01/01/15 13:15 Date of admission: 11/21/17 16:23 Primary care physician: Basilio Francisco DO Consults: 11/21/17 18:12 Consult to Nephrology [CONS] Routine Consulting Provider: Kidney Piper/YAYO/KAMRAN/CARMINE Reason for Consult: ESRD, dialysis patient Time Notified: 18:13 Call Completed: Yes 11/22/17 08:15 Consult to Dialysis [CONS] ONCE Discharging clinician: Jin Antonio Anticipated date of discharge: 11/22/17 - Constitutional Vitals: Temp Pulse Resp BP Pulse Ox 97.7 F 54 20 129/33 97 11/22/17 09:00 11/22/17 07:24 11/22/17 09:00 11/22/17 12:30 11/22/17 07:24 General appearance: Present: cooperative, A&O X 3, no acute distress, answers questions appropriately - Neck Neck exam general surgery: Present: supple, trachea midline. Absent: lymphadenopathy - Respiratory Respiratory exam: Present: CTAB. Absent: accessory muscle use, rales, rhonchi, wheezes - Cardiovascular Cardiovascular exam: Present: RRR, +S1, +S2. Absent: diastolic murmur, gallop, rubs, systolic murmur - GI/Abdominal GI/Abdominal exam: Present: normal bowel sounds, soft, no peritoneal signs. Absent: distended, tenderness - Extremities Exam Extremities exam: Present: warm, radial pulses palpable and symmetrical. Absent : calf tenderness, cyanotic, pedal edema - Patient Status Disposition: Home, Self-Care Condition: Good Overall status at discharge: patient is progressing back to baseline - Discharge Instructions Instructions: Hypothyroidism (DC) Follow Up With: Damaso Francisco DO [Primary Care Provider] - 12/04/17 9:30 am (in 1-2 weeks Please follow up as schedule... ) - Diet and Activity Activity: as per physical therapy Diet: low fat, low cholesterol, low salt diet
[2017-11-22] MEDS ORDERED: Acetaminophen 325 MG TABLET PO PRN (13:46)
[2017-11-22 13:52] VITALS: BP 123/35
[2017-11-22] MEDS ORDERED: Gabapentin 300 MG CAPSULE PO SCH (21:00)
[2017-11-22] MEDS ORDERED: Insulin LISPRO 300 UNITS/3 ML VIAL SQ SCH (21:00)
--- NOTE | 2017-11-28 16:41 | Electrocardiograph Report ---
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
== END 2017-11-22 16:17 | disposition home or self-care (01) ==
LOC: EMEROO 12:12 → 2SOUTHHOLD 12:12 → 2ANU 11-22 05:02
PROVIDERS: ADMIT Internal Medicine; ATTEND Internal Medicine

== ENCOUNTER 2019-12-22 11:43 | Inpatient (IN) ==
[2019-12-22] MEDS ORDERED: *HR* HYDROcodone/Acet 5/325 mg TABLET PO ONE (12:33)
[2019-12-22 13:00] LABS: Basophils % 0.2 %; Eosinophils # 0.1 K/mcL (0.0-0.6); Eosinophils % 0.8 %; Hematocrit 29.6 % (35.3-44.9); Hemoglobin 9.3 g/dL (11.5-15.4); Immature Granulocytes % 0.4 % (0-4); Lymphocytes # 0.9 K/mcL (0.6-4.6); Lymphocytes % 10.3 %; Mean Corpuscular HGB Conc 31.4 g/dL (31.6-35.5); Mean Corpuscular Hemoglobin 33.5 pg (28.0-33.3); Mean Corpuscular Volume 106.5 fL (83.0-100.0); Mean Platelet Volume 10.4 fL (9.4-12.4); Monocytes # 0.5 K/mcL (0.0-1.3); Monocytes % 6.3 %; Neutrophils # 6.8 K/mcL (1.6-8.9); Platelet Count 149 K/mcL (140-400); Red Blood Count 2.78 M/mcL (3.82-4.97); Red Cell Distribution Width 15.1 % (11.5-14.5); White Blood Count 8.3 K/mcL (4.3-11.1)
[2019-12-22 13:10] LABS: INR 1.2; Prothrombin Time 13.9 Seconds (9.4-12.1)
[2019-12-22 13:13] LABS: Activated Partial Thrombo Time 26.8 Seconds (26.0-36.0)
[2019-12-22 13:20] LABS: Alanine Aminotransferase 8 Units/L (7-52); Albumin 3.9 g/dL (3.5-5.7); Albumin/Globulin Ratio 1.4 (1.1-2.2); Alkaline Phosphatase 123 Units/L (34-104); Aspartate Amino Transferase 13 Units/L (13-39); BUN/Creatinine Ratio 7 (6-26); Bilirubin,Direct 0.2 mg/dL (0.0-0.2); Bilirubin,Indirect 0.4 mg/dL (0.0-1.0); Bilirubin,Total 0.6 mg/dL (0.3-1.0); Blood Urea Nitrogen 51 mg/dL (8-23); Calcium 9.3 mg/dL (8.6-10.3); Carbon Dioxide 22 mEq/L (23-29); Chloride 94 mEq/L (98-107); Globulin 2.7 g/dL (2.4-3.5); Glucose 107 mg/dL (70-105); Osmolality,Calculated 300 (280-300); Potassium 4.2 mEq/L (3.5-5.1); Sodium 138 mEq/L (136-145); Total Protein 6.6 g/dL (6.4-8.9); Troponin I < 0.03 ng/mL (< 0.04); eGFR For African Americans 7 (> 60); eGFR For Non-African Americans 6 (> 60)
[2019-12-22] MEDS ORDERED: Naloxone 0.4 MG/ML INJ IVP PRN (15:27)
[2019-12-22] MEDS ORDERED: D5% in Water 1,000 ML IVC PRN (15:58)
[2019-12-22] MEDS ORDERED: *HR* Dextrose 50 % in Water (Vial) 50 ML VIAL IVP PRN (15:58)
[2019-12-22] MEDS ORDERED: Dextrose Gel 15 GM/37.5 ML TUBE PO PRN ×2 (15:58)
[2019-12-22] MEDS: Insulin LISPRO 300 UNITS/3 ML VIAL SQ SCH ×2 (16:52→23:07)
[2019-12-22] MEDS ORDERED: *HR* HYDROcodone/Acet 5/325 mg TABLET PO PRN (21:00)
[2019-12-23] MEDS ORDERED: 0.9 % Sodium Chloride 250 ML IVC ONE (00:21)
[2019-12-23 01:43] LABS: Albumin 3.6 g/dL (3.5-5.7); Albumin/Globulin Ratio 1.5 (1.1-2.2); Bilirubin,Total 0.5 mg/dL (0.3-1.0); Calcium 8.8 mg/dL (8.6-10.3); Globulin 2.4 g/dL (2.4-3.5); Magnesium 1.6 mg/dL (1.6-2.6)
[2019-12-23] MEDS: Acetaminophen 325 MG TABLET PO PRN (02:12)
[2019-12-23] MEDS: Methyl Salicylate/Menthol 57 APPL/57 GM TUBE TP PRN (03:02)
[2019-12-23] MEDS ORDERED: methocarbamoL 500 MG TABLET PO ONE (03:53)
[2019-12-23] MEDS ORDERED: Ketorolac 15 MG/ML VIAL IVP ONE (05:27)
[2019-12-23] MEDS ORDERED: Albumin 25% 25gram/100mL 25 GM/100 ML IV.SOLN IVPB PRN (07:30)
[2019-12-23] MEDS ORDERED: 0.9 % Sodium Chloride 1,000 ML PRIME SCH (07:30)
[2019-12-23] MEDS ORDERED: 0.9 % Sodium Chloride 250 ML IVC PRN (07:30)
[2019-12-23] MEDS: Insulin LISPRO 300 UNITS/3 ML VIAL SQ SCH ×4 (08:29→20:06)
[2019-12-23 09:18] LABS: Hepatitis B Surface Antibody 17.78 mIU/mL
[2019-12-23 09:28] LABS: Hepatitis B Surface Antigen Nonreactive (Nonreactive)
[2019-12-23] MEDS: *HR* HYDROcodone/Acet 5/325 mg TABLET PO PRN ×2 (10:03→17:18)
[2019-12-23] MEDS: Aspirin 81 MG TAB.CHEW PO SCH (11:33)
[2019-12-23] MEDS: Doxycycline 100 MG in 0.9 % Sodium Chloride Mini Bag 100 ML IVPB SCH ×2 (11:33→19:44)
[2019-12-23] MEDS: allopurinoL 100 MG TABLET PO SCH (11:33)
[2019-12-23] MEDS: Gabapentin 300 MG CAPSULE PO SCH (20:07)
[2019-12-23] MEDS ORDERED: diazePAM 5 MG TABLET PO PRN (21:00)
[2019-12-24] MEDS: Acetaminophen 325 MG TABLET PO PRN ×2 (00:26→13:17)
[2019-12-24 05:48] LABS: Albumin 3.9 g/dL (3.5-5.7); Albumin/Globulin Ratio 1.6 (1.1-2.2); Bilirubin,Total 0.5 mg/dL (0.3-1.0); Calcium 9.4 mg/dL (8.6-10.3); Globulin 2.4 g/dL (2.4-3.5); Potassium 5.1 mEq/L (3.5-5.1); Total Protein 6.3 g/dL (6.4-8.9)
[2019-12-24] MEDS ORDERED: 0.9 % Sodium Chloride 250 ML IVC PRN (07:50)
[2019-12-24] MEDS ORDERED: *HR* Heparin 10,000 UNIT/10 ML VIAL IV PRN (07:50)
[2019-12-24] MEDS: Doxycycline 100 MG in 0.9 % Sodium Chloride Mini Bag 100 ML IVPB SCH (07:59)
[2019-12-24] MEDS: allopurinoL 100 MG TABLET PO SCH (07:59)
[2019-12-24] MEDS: Aspirin 81 MG TAB.CHEW PO SCH (08:00)
[2019-12-24] MEDS: Insulin LISPRO 300 UNITS/3 ML VIAL SQ SCH ×4 (08:01→20:00)
[2019-12-24] MEDS: *HR* HYDROcodone/Acet 5/325 mg TABLET PO PRN ×2 (09:54→16:12)
[2019-12-24] MEDS: Albumin 25% 25gram/100mL 25 GM/100 ML IV.SOLN IVPB PRN (17:29)
[2019-12-24] MEDS ORDERED: Albumin 25% 25gram/100mL 25 GM/100 ML IV.SOLN IVPB ONE (19:52)
[2019-12-24] MEDS: Gabapentin 300 MG CAPSULE PO SCH (19:57)
[2019-12-24] MEDS: Doxycycline 100 MG CAPSULE PO SCH (19:58)
[2019-12-24] MEDS: Methyl Salicylate/Menthol 57 APPL/57 GM TUBE TP PRN (23:19)
[2019-12-25 01:33] LABS: Calcium 9.6 mg/dL (8.6-10.3); Potassium 4.7 mEq/L (3.5-5.1)
[2019-12-25] MEDS: Acetaminophen 325 MG TABLET PO PRN ×2 (03:28→10:53)
[2019-12-25] MEDS: Doxycycline 100 MG CAPSULE PO SCH ×2 (07:43→20:41)
[2019-12-25] MEDS: allopurinoL 100 MG TABLET PO SCH (07:43)
[2019-12-25] MEDS: Aspirin 81 MG TAB.CHEW PO SCH (07:43)
[2019-12-25] MEDS: Insulin LISPRO 300 UNITS/3 ML VIAL SQ SCH ×4 (07:49→20:35)
[2019-12-25] MEDS: *HR* HYDROcodone/Acet 5/325 mg TABLET PO PRN (16:41)
[2019-12-25] MEDS: Gabapentin 300 MG CAPSULE PO SCH (20:40)
[2019-12-26] MEDS: Acetaminophen 325 MG TABLET PO PRN ×3 (04:34→18:22)
[2019-12-26 06:05] LABS: Hematocrit 31.1 % (35.3-44.9); Hemoglobin 9.4 g/dL (11.5-15.4); Mean Corpuscular HGB Conc 30.2 g/dL (31.6-35.5); Mean Corpuscular Volume 109.1 fL (83.0-100.0); Mean Platelet Volume 10.9 fL (9.4-12.4); Platelet Count 153 K/mcL (140-400); Red Blood Count 2.85 M/mcL (3.82-4.97); Red Cell Distribution Width 15.3 % (11.5-14.5); White Blood Count 5.8 K/mcL (4.3-11.1)
[2019-12-26 06:26] LABS: Calcium 9.7 mg/dL (8.6-10.3); Potassium 4.5 mEq/L (3.5-5.1)
[2019-12-26] MEDS ORDERED: 0.9 % Sodium Chloride 250 ML IVC PRN (07:43)
[2019-12-26] MEDS ORDERED: *HR* Heparin 10,000 UNIT/10 ML VIAL IV PRN ×2 (07:43)
[2019-12-26] MEDS: Insulin LISPRO 300 UNITS/3 ML VIAL SQ SCH ×4 (08:17→20:28)
[2019-12-26] MEDS: allopurinoL 100 MG TABLET PO SCH (08:18)
[2019-12-26] MEDS: Doxycycline 100 MG CAPSULE PO SCH ×2 (08:18→20:52)
[2019-12-26] MEDS: Aspirin 81 MG TAB.CHEW PO SCH (08:19)
[2019-12-26] MEDS: *HR* HYDROcodone/Acet 5/325 mg TABLET PO PRN (08:38)
[2019-12-26] MEDS ORDERED: Albumin 25% 25gram/100mL 25 GM/100 ML IV.SOLN ONE (10:03)
[2019-12-26] MEDS: Albumin 25% 25gram/100mL 25 GM/100 ML IV.SOLN IVPB PRN (10:57)
[2019-12-26] MEDS: Gabapentin 300 MG CAPSULE PO SCH (20:52)
[2019-12-27] MEDS: Acetaminophen 325 MG TABLET PO PRN (00:49)
[2019-12-27] MEDS: Methyl Salicylate/Menthol 57 APPL/57 GM TUBE TP PRN (05:00)
[2019-12-27 05:24] LABS: Hematocrit 30.1 % (35.3-44.9); Hemoglobin 9.3 g/dL (11.5-15.4); Mean Corpuscular HGB Conc 30.9 g/dL (31.6-35.5); Mean Corpuscular Volume 106.7 fL (83.0-100.0); Mean Platelet Volume 10.9 fL (9.4-12.4); Platelet Count 155 K/mcL (140-400); Red Blood Count 2.82 M/mcL (3.82-4.97); Red Cell Distribution Width 15.3 % (11.5-14.5)
[2019-12-27 05:29] LABS: Albumin 4.2 g/dL (3.5-5.7); Calcium 9.8 mg/dL (8.6-10.3); Potassium 4.8 mEq/L (3.5-5.1)
[2019-12-27] MEDS ORDERED: Albumin 25% 25gram/100mL 25 GM/100 ML IV.SOLN IVPB ONE (06:34)
[2019-12-27 07:28] VITALS: BP 96/62
[2019-12-27] MEDS: Doxycycline 100 MG CAPSULE PO SCH (07:38)
[2019-12-27] MEDS: Insulin LISPRO 300 UNITS/3 ML VIAL SQ SCH (07:38)
[2019-12-27] MEDS: Aspirin 81 MG TAB.CHEW PO SCH (07:39)
[2019-12-27] MEDS: allopurinoL 100 MG TABLET PO SCH (07:39)
== END 2019-12-27 11:36 | DRG 553 ==
LOC: 2ANU 11:43 → EMEROOARM 11:43 → 2ANU 15:34 → SUATTDRO 12-23 13:44
PROVIDERS: ADMIT Internal Medicine; ATTEND Family Medicine

== ENCOUNTER 2021-01-14 06:14 | Inpatient (IN) ==
[2021-01-14 07:27] LABS: Basophils % 0.4 %; Eosinophils # 0.1 K/mcL (0.0-0.6); Eosinophils % 1.3 %; Hematocrit 34.8 % (35.3-44.9); Hemoglobin 11.1 g/dL (11.5-15.4); Immature Granulocytes % 0.4 % (0-4); Lymphocytes # 1.2 K/mcL (0.6-4.6); Mean Corpuscular HGB Conc 31.9 g/dL (31.6-35.5); Mean Corpuscular Hemoglobin 36.9 pg (28.0-33.3); Mean Corpuscular Volume 115.6 fL (83.0-100.0); Monocytes # 0.5 K/mcL (0.0-1.3); Monocytes % 6.5 %; Neutrophils # 6.4 K/mcL (1.6-8.9); Platelet Count 129 K/mcL (140-400); Red Blood Count 3.01 M/mcL (3.82-4.97); Red Cell Distribution Width 15.5 % (11.5-14.5); Segmented Neutrophils % 77.4 %; White Blood Count 8.2 K/mcL (4.3-11.1)
[2021-01-14 07:28] LABS: Macrocytosis Present (Not Present); Platelet Estimate Slight Decrease (Normal)
[2021-01-14 08:03] LABS: Influenza A PCR Negative (Negative); Influenza B PCR Negative (Negative); Resp. Syncytial Virus PCR Negative (Negative)
[2021-01-14 08:07] LABS: SARS-CoV-2 by PCR (In House) Negative (Negative)
[2021-01-14 08:23] LABS: Albumin 4.1 g/dL (3.5-5.7); Albumin/Globulin Ratio 1.3 (1.1-2.2); Bilirubin,Total 0.5 mg/dL (0.3-1.0); Calcium 10.8 mg/dL (8.6-10.3); Globulin 3.2 g/dL (2.4-3.5); Magnesium 1.8 mg/dL (1.6-2.6); Potassium 4.9 mEq/L (3.5-5.1); Total Protein 7.3 g/dL (6.4-8.9)
[2021-01-14] MEDS ORDERED: cefTRIAXone 1,000 MG in 0.9 % Sodium Chloride Mini Bag 100 ML IVPB ONE (08:47)
[2021-01-14] MEDS ORDERED: Naloxone 0.4 MG/ML INJ IVP PRN (10:52)
[2021-01-14] MEDS ORDERED: Mag Hydrox/Al Hydrox/Simeth 30 ML UDC PO PRN (10:52)
[2021-01-14] MEDS ORDERED: Ondansetron ODT 4 MG TAB.RAPDIS SL PRN (10:52)
[2021-01-14] MEDS ORDERED: MOM Conc 10 ML UD.LIQ PO PRN (10:52)
[2021-01-14] MEDS ORDERED: Albumin 25% 25gram/100mL 25 GM/100 ML IV.SOLN IVPB PRN (11:32)
[2021-01-14] MEDS ORDERED: 0.9 % Sodium Chloride 250 ML IVC PRN (11:32)
[2021-01-14] MEDS ORDERED: Dextrose Gel 15 GM/37.5 ML TUBE PO PRN ×2 (11:44)
[2021-01-14] MEDS ORDERED: *HR* Dextrose 50 % in Water (Vial) 50 ML VIAL IVP PRN (11:44)
[2021-01-14] MEDS ORDERED: D5% in Water 1,000 ML IVC PRN (11:44)
[2021-01-14] MEDS ORDERED: 0.9 % Sodium Chloride 1,000 ML PRIME SCH (11:45)
[2021-01-14] MEDS ORDERED: levoFLOXacin 750 MG/150 ML 750 MG/150 ML BAG IVPB ONE (12:03)
[2021-01-14 12:07] LABS: Hepatitis B Surface Antibody 17.96 mIU/mL
[2021-01-14 12:19] LABS: Hepatitis B Surface Antigen Nonreactive (Nonreactive)
[2021-01-14 13:59] LABS: Estimated Average Glucose 140 mg/dl; Hemoglobin A1C 6.5 %
[2021-01-14] MEDS: Insulin LISPRO 300 UNITS/3 ML VIAL SUBQ SCH ×2 (16:14→22:06)
[2021-01-14] MEDS: *HR* Heparin 5,000 UNIT/ML VIAL SQ SCH (18:22)
[2021-01-15] MEDS: *HR* Heparin 5,000 UNIT/ML VIAL SQ SCH ×2 (06:39→17:07)
[2021-01-15] MEDS: Aspirin 81 MG TAB.CHEW PO SCH (07:42)
[2021-01-15] MEDS: Insulin LISPRO 300 UNITS/3 ML VIAL SUBQ SCH ×4 (07:43→22:33)
[2021-01-15] MEDS ORDERED: 0.9 % Sodium Chloride 250 ML IVC PRN (08:01)
[2021-01-15 09:14] LABS: Basophils % 0.4 %; Eosinophils # 0.1 K/mcL (0.0-0.6); Eosinophils % 1.8 %; Hematocrit 33.5 % (35.3-44.9); Immature Granulocytes % 0.3 % (0-4); Lymphocytes # 1.5 K/mcL (0.6-4.6); Lymphocytes % 20.9 %; Mean Corpuscular HGB Conc 32.8 g/dL (31.6-35.5); Mean Corpuscular Hemoglobin 37.2 pg (28.0-33.3); Mean Corpuscular Volume 113.2 fL (83.0-100.0); Monocytes # 0.4 K/mcL (0.0-1.3); Monocytes % 6.1 %; Neutrophils # 5.1 K/mcL (1.6-8.9); Platelet Count 120 K/mcL (140-400); Red Blood Count 2.96 M/mcL (3.82-4.97); Red Cell Distribution Width 15.3 % (11.5-14.5); Segmented Neutrophils % 70.5 %; White Blood Count 7.2 K/mcL (4.3-11.1)
[2021-01-15 09:27] LABS: Calcium 10.4 mg/dL (8.6-10.3); Potassium 5.6 mEq/L (3.5-5.1)
[2021-01-15 09:34] LABS: Macrocytosis Present (Not Present); Platelet Estimate Slight Decrease (Normal)
[2021-01-15 12:31] LABS: Thyroid Stimulating Hormone 2.841 mcIU/mL (0.340-5.600)
[2021-01-15] MEDS ORDERED: PrednisoLONE Acetate 1% Opth 5 ML BOTTLE LEFT EYE SCH (13:00)
[2021-01-15] MEDS ORDERED: Sodium Chloride 5% OPTH 3.5 GM TUBE LEFT EYE SCH (13:00)
[2021-01-15] MEDS: valACYclovir 500 MG TABLET PO SCH ×2 (13:42→17:07)
[2021-01-15] MEDS: OPTH OP SCH ×3 (14:14→20:05)
[2021-01-15] MEDS: PREDNISOLONE 1% OP SCH ×3 (14:14→20:05)
[2021-01-15] MEDS: GANCICLOVIR OP SCH ×3 (14:14→20:04)
[2021-01-15] MEDS: Sodium Chloride 5% OPTH 3.5 GM TUBE OP SCH (17:08)
[2021-01-15] MEDS: Lactobacillus 1 EACH CAP.SPRINK PO SCH (20:04)
[2021-01-15] MEDS: diazePAM 5 MG TABLET PO SCH (20:04)
[2021-01-16 05:02] LABS: Hematocrit 33.2 % (35.3-44.9); Hemoglobin 10.6 g/dL (11.5-15.4); Mean Corpuscular HGB Conc 31.9 g/dL (31.6-35.5); Mean Corpuscular Hemoglobin 37.1 pg (28.0-33.3); Mean Corpuscular Volume 116.1 fL (83.0-100.0); Mean Platelet Volume 11.2 fL (9.4-12.4); Platelet Count 109 K/mcL (140-400); Red Blood Count 2.86 M/mcL (3.82-4.97); Red Cell Distribution Width 15.7 % (11.5-14.5); White Blood Count 10.2 K/mcL (4.3-11.1)
[2021-01-16 05:20] LABS: Calcium 10.4 mg/dL (8.6-10.3); Magnesium 1.8 mg/dL (1.6-2.6); Phosphorous 3.8 mg/dL (2.7-4.5); Potassium 4.7 mEq/L (3.5-5.1)
[2021-01-16] MEDS: *HR* Heparin 5,000 UNIT/ML VIAL SQ SCH ×2 (06:32→17:20)
[2021-01-16] MEDS: Lactobacillus 1 EACH CAP.SPRINK PO SCH ×2 (09:41→20:33)
[2021-01-16] MEDS: Aspirin 81 MG TAB.CHEW PO SCH (09:42)
[2021-01-16] MEDS: GANCICLOVIR OP SCH ×4 (09:42→20:34)
[2021-01-16] MEDS: OPTH OP SCH ×4 (09:42→20:34)
[2021-01-16] MEDS: Sodium Chloride 5% OPTH 3.5 GM TUBE OP SCH ×4 (09:42→20:34)
[2021-01-16] MEDS: PREDNISOLONE 1% OP SCH ×4 (09:42→20:34)
[2021-01-16] MEDS: Insulin LISPRO 300 UNITS/3 ML VIAL SUBQ SCH ×4 (09:44→22:19)
[2021-01-16] MEDS ORDERED: levoFLOXacin 500 MG/100 ML 500 MG/100 ML BAG IVPB SCH (13:00)
[2021-01-16] MEDS: valACYclovir 500 MG TABLET PO SCH (15:32)
[2021-01-16] MEDS: diazePAM 5 MG TABLET PO SCH (20:33)
[2021-01-16] MEDS: Melatonin 3 MG TABLET PO PRN (20:34)
[2021-01-17 04:59] LABS: Hematocrit 32.5 % (35.3-44.9); Hemoglobin 10.5 g/dL (11.5-15.4); Mean Corpuscular HGB Conc 32.3 g/dL (31.6-35.5); Mean Corpuscular Hemoglobin 36.3 pg (28.0-33.3); Mean Corpuscular Volume 112.5 fL (83.0-100.0); Mean Platelet Volume 11.5 fL (9.4-12.4); Platelet Count 101 K/mcL (140-400); Red Blood Count 2.89 M/mcL (3.82-4.97); Red Cell Distribution Width 15.7 % (11.5-14.5); White Blood Count 13.9 K/mcL (4.3-11.1)
[2021-01-17 05:18] LABS: Calcium 10.5 mg/dL (8.6-10.3); Magnesium 1.7 mg/dL (1.6-2.6); Phosphorous 5.6 mg/dL (2.7-4.5); Potassium 5.6 mEq/L (3.5-5.1)
[2021-01-17 05:20] LABS: % Iron Saturation 14 % (15-50); Iron 30 mcg/dL (50-170); Transferrin 154 mg/dL (203-362)
[2021-01-17 05:38] LABS: Ferritin 1052 ng/mL (10-120)
[2021-01-17 05:46] LABS: Folate > 22.3 ng/mL (3.0-16.0); Vitamin B12 368 pg/mL (250-1100)
[2021-01-17] MEDS: *HR* Heparin 5,000 UNIT/ML VIAL SQ SCH ×2 (06:56→16:18)
[2021-01-17] MEDS ORDERED: 0.9 % Sodium Chloride 250 ML IVC PRN (07:31)
[2021-01-17] MEDS: Insulin LISPRO 300 UNITS/3 ML VIAL SUBQ SCH ×4 (08:39→21:30)
[2021-01-17] MEDS ORDERED: Azithromycin 100 MG/5 ML MLS PO SCH (09:00)
[2021-01-17] MEDS: Aspirin 81 MG TAB.CHEW PO SCH (09:38)
[2021-01-17] MEDS: Lactobacillus 1 EACH CAP.SPRINK PO SCH ×2 (09:38→19:58)
[2021-01-17] MEDS: cefTRIAXone 1,000 MG in 0.9 % Sodium Chloride Mini Bag 100 ML IVPB SCH (09:38)
[2021-01-17] MEDS: PREDNISOLONE 1% OP SCH ×4 (09:44→20:00)
[2021-01-17] MEDS: OPTH OP SCH ×4 (09:44→20:00)
[2021-01-17] MEDS: Sodium Chloride 5% OPTH 3.5 GM TUBE OP SCH ×4 (09:45→20:00)
[2021-01-17] MEDS: GANCICLOVIR OP SCH ×4 (09:45→20:00)
[2021-01-17] MEDS ORDERED: Iron Sucrose Complex 400 MG in 0.9 % Sodium Chloride 250 ML IVPB ONE (11:33)
[2021-01-17] MEDS: valACYclovir 500 MG TABLET PO SCH (15:05)
[2021-01-17] MEDS: diazePAM 5 MG TABLET PO SCH (19:58)
[2021-01-17] MEDS: Melatonin 3 MG TABLET PO PRN (19:58)
[2021-01-17] MEDS: *HR* OxyCODONE/APAP 5/325 TABLET PO PRN (20:08)
[2021-01-18] MEDS: *HR* Heparin 5,000 UNIT/ML VIAL SQ SCH ×2 (05:30→16:30)
[2021-01-18 05:36] LABS: Mean Corpuscular Volume 113.3 fL (83.0-100.0)
[2021-01-18 05:38] LABS: Hematocrit 31.6 % (35.3-44.9); Hemoglobin 10.3 g/dL (11.5-15.4); Immature Platelets 8.9 % (1.1-6.1); Mean Corpuscular HGB Conc 32.6 g/dL (31.6-35.5); Mean Corpuscular Hemoglobin 36.9 pg (28.0-33.3); Red Blood Count 2.79 M/mcL (3.82-4.97); Red Cell Distribution Width 15.6 % (11.5-14.5); White Blood Count 12.9 K/mcL (4.3-11.1)
[2021-01-18 05:55] LABS: Calcium 9.7 mg/dL (8.6-10.3); Magnesium 1.8 mg/dL (1.6-2.6); Phosphorous 4.4 mg/dL (2.7-4.5); Potassium 4.6 mEq/L (3.5-5.1)
[2021-01-18] MEDS: Insulin LISPRO 300 UNITS/3 ML VIAL SUBQ SCH ×4 (08:32→20:47)
[2021-01-18] MEDS: Aspirin 81 MG TAB.CHEW PO SCH (08:33)
[2021-01-18] MEDS: Lactobacillus 1 EACH CAP.SPRINK PO SCH ×2 (08:33→20:47)
[2021-01-18] MEDS: GANCICLOVIR OP SCH ×4 (08:34→20:47)
[2021-01-18] MEDS: OPTH OP SCH ×4 (08:34→20:47)
[2021-01-18] MEDS: Sodium Chloride 5% OPTH 3.5 GM TUBE OP SCH ×4 (08:34→20:47)
[2021-01-18] MEDS: cefTRIAXone 1,000 MG in 0.9 % Sodium Chloride Mini Bag 100 ML IVPB SCH (08:34)
[2021-01-18] MEDS: PREDNISOLONE 1% OP SCH ×4 (08:34→20:47)
[2021-01-18] MEDS: valACYclovir 500 MG TABLET PO SCH (16:30)
[2021-01-18] MEDS: Doxycycline 100 MG CAPSULE PO SCH (20:47)
[2021-01-18] MEDS: diazePAM 5 MG TABLET PO SCH (20:47)
[2021-01-19] MEDS: *HR* Heparin 5,000 UNIT/ML VIAL SQ SCH ×2 (06:22→16:38)
[2021-01-19] MEDS ORDERED: 0.9 % Sodium Chloride 250 ML IVC PRN ×2 (07:11→07:12)
[2021-01-19] MEDS ORDERED: 0.9 % Sodium Chloride 1,000 ML PRIME SCH (07:15)
[2021-01-19] MEDS: Aspirin 81 MG TAB.CHEW PO SCH (07:29)
[2021-01-19] MEDS: Lactobacillus 1 EACH CAP.SPRINK PO SCH ×2 (07:29→22:54)
[2021-01-19] MEDS: Doxycycline 100 MG CAPSULE PO SCH ×2 (07:29→22:54)
[2021-01-19] MEDS: Insulin LISPRO 300 UNITS/3 ML VIAL SUBQ SCH ×4 (07:30→22:55)
[2021-01-19] MEDS: OPTH OP SCH ×4 (07:31→22:56)
[2021-01-19] MEDS: PREDNISOLONE 1% OP SCH ×4 (07:31→22:56)
[2021-01-19] MEDS: Sodium Chloride 5% OPTH 3.5 GM TUBE OP SCH ×4 (07:31→22:56)
[2021-01-19] MEDS: GANCICLOVIR OP SCH ×4 (07:31→22:56)
[2021-01-19] MEDS ORDERED: Albumin 25% 25gram/100mL 25 GM/100 ML IV.SOLN IVC SCH (09:45)
[2021-01-19] MEDS ORDERED: cefTRIAXone 1,000 MG in 0.9 % Sodium Chloride Mini Bag 100 ML IVPB SCH (14:00)
[2021-01-19] MEDS: valACYclovir 500 MG TABLET PO SCH (14:59)
[2021-01-19] MEDS: diazePAM 5 MG TABLET PO SCH (22:54)
[2021-01-20 01:17] LABS: Hemoglobin 10.4 g/dL (11.5-15.4); Immature Granulocytes % 0.9 % (0-4); Segmented Neutrophils % 74.5 %
[2021-01-20 01:19] LABS: Basophils % 0.3 %; Eosinophils # 0.2 K/mcL (0.0-0.6); Eosinophils % 1.9 %; Hematocrit 31.4 % (35.3-44.9); Immature Platelets 7.3 % (1.1-6.1); Lymphocytes # 1.3 K/mcL (0.6-4.6); Lymphocytes % 13.3 %; Mean Corpuscular HGB Conc 33.1 g/dL (31.6-35.5); Mean Corpuscular Hemoglobin 37.4 pg (28.0-33.3); Mean Corpuscular Volume 112.9 fL (83.0-100.0); Mean Platelet Volume 11.4 fL (9.4-12.4); Monocytes # 0.9 K/mcL (0.0-1.3); Monocytes % 9.1 %; Platelet Count 137 K/mcL (140-400); Red Blood Count 2.78 M/mcL (3.82-4.97); Red Cell Distribution Width 15.9 % (11.5-14.5); White Blood Count 9.7 K/mcL (4.3-11.1)
[2021-01-20 01:38] LABS: Potassium 4.1 mEq/L (3.5-5.1)
[2021-01-20 01:39] LABS: Neutrophils # 7.2 K/mcL (1.6-8.9)
[2021-01-20 01:47] LABS: Macrocytosis Present (Not Present); Platelet Estimate Slight Decrease (Normal)
[2021-01-20] MEDS: *HR* Heparin 5,000 UNIT/ML VIAL SQ SCH ×2 (06:49→15:46)
[2021-01-20] MEDS: Lactobacillus 1 EACH CAP.SPRINK PO SCH ×2 (08:47→20:17)
[2021-01-20] MEDS: Doxycycline 100 MG CAPSULE PO SCH (08:47)
[2021-01-20] MEDS: Aspirin 81 MG TAB.CHEW PO SCH (08:47)
[2021-01-20] MEDS: Insulin LISPRO 300 UNITS/3 ML VIAL SUBQ SCH ×4 (08:47→21:23)
[2021-01-20] MEDS: GANCICLOVIR OP SCH ×4 (08:48→20:18)
[2021-01-20] MEDS: OPTH OP SCH ×4 (08:48→20:17)
[2021-01-20] MEDS: Sodium Chloride 5% OPTH 3.5 GM TUBE OP SCH ×4 (08:48→20:18)
[2021-01-20] MEDS: PREDNISOLONE 1% OP SCH ×4 (08:48→20:17)
[2021-01-20] MEDS ORDERED: *HR* Dextrose 50 % in Water (Syg) 50 ML SYRINGE IVP PRN (14:45)
[2021-01-20] MEDS: valACYclovir 500 MG TABLET PO SCH (15:45)
[2021-01-20] MEDS: diazePAM 5 MG TABLET PO SCH (20:16)
[2021-01-21 01:47] LABS: Hematocrit 31.8 % (35.3-44.9); Hemoglobin 10.4 g/dL (11.5-15.4); Mean Corpuscular HGB Conc 32.7 g/dL (31.6-35.5); Mean Corpuscular Hemoglobin 37.7 pg (28.0-33.3); Mean Corpuscular Volume 115.2 fL (83.0-100.0); Mean Platelet Volume 11.2 fL (9.4-12.4); Platelet Count 140 K/mcL (140-400); Red Blood Count 2.76 M/mcL (3.82-4.97); Red Cell Distribution Width 16.1 % (11.5-14.5); White Blood Count 9.8 K/mcL (4.3-11.1)
[2021-01-21 02:07] LABS: Calcium 10.1 mg/dL (8.6-10.3); Potassium 4.2 mEq/L (3.5-5.1)
[2021-01-21] MEDS: *HR* Heparin 5,000 UNIT/ML VIAL SQ SCH (05:42)
[2021-01-21] MEDS: Aspirin 81 MG TAB.CHEW PO SCH (08:11)
[2021-01-21] MEDS: *HR* OxyCODONE/APAP 5/325 TABLET PO PRN (08:11)
[2021-01-21] MEDS: Lactobacillus 1 EACH CAP.SPRINK PO SCH ×2 (08:11→21:28)
[2021-01-21] MEDS: Insulin LISPRO 300 UNITS/3 ML VIAL SUBQ SCH ×4 (08:14→21:28)
[2021-01-21] MEDS: OPTH OP SCH ×4 (08:14→21:29)
[2021-01-21] MEDS: PREDNISOLONE 1% OP SCH ×4 (08:14→21:29)
[2021-01-21] MEDS: GANCICLOVIR OP SCH ×4 (08:20→21:28)
[2021-01-21] MEDS: Sodium Chloride 5% OPTH 3.5 GM TUBE OP SCH ×4 (08:30→21:29)
[2021-01-21] MEDS ORDERED: Isovue-370 500 ML BOTTLE IVP ONE (13:56)
[2021-01-21] MEDS ORDERED: Pantoprazole 40 MG VIAL IVP STA (14:09)
[2021-01-21 14:53] LABS: Basophils # 0.1 K/mcL (0.0-0.2); Basophils % 0.5 %; Eosinophils # 0.2 K/mcL (0.0-0.6); Eosinophils % 1.7 %; Hematocrit 34.8 % (35.3-44.9); Hemoglobin 10.8 g/dL (11.5-15.4); Immature Granulocytes % 1.5 % (0-4); Lymphocytes # 1.6 K/mcL (0.6-4.6); Lymphocytes % 15.5 %; Mean Corpuscular Hemoglobin 37.1 pg (28.0-33.3); Mean Corpuscular Volume 119.6 fL (83.0-100.0); Mean Platelet Volume 10.5 fL (9.4-12.4); Monocytes % 10.2 %; Neutrophils # 7.1 K/mcL (1.6-8.9); Platelet Count 124 K/mcL (140-400); Red Blood Count 2.91 M/mcL (3.82-4.97); Red Cell Distribution Width 16.6 % (11.5-14.5); Segmented Neutrophils % 70.6 %
[2021-01-21 15:24] LABS: Albumin 3.8 g/dL (3.5-5.7); Albumin/Globulin Ratio 1.6 (1.1-2.2); Bilirubin,Direct 0.3 mg/dL (0.0-0.2); Bilirubin,Indirect 0.6 mg/dL (0.0-1.0); Bilirubin,Total 0.9 mg/dL (0.3-1.0); Calcium 9.7 mg/dL (8.6-10.3); Globulin 2.4 g/dL (2.4-3.5); Potassium 4.1 mEq/L (3.5-5.1); Total Protein 6.2 g/dL (6.4-8.9)
[2021-01-21] MEDS: valACYclovir 500 MG TABLET PO SCH (15:34)
[2021-01-21 15:44] LABS: Anisocytosis 1+ (Not Present); Large Platelets Present (Not Present); Platelet Estimate Slight Decrease (Normal)
[2021-01-21 15:45] LABS: Macrocytosis Present (Not Present)
[2021-01-21] MEDS ORDERED: 0.9 % Sodium Chloride 500 ML IV ONE (16:13)
[2021-01-21] MEDS ORDERED: *HR* Propofol 200 MG/20 ML VIAL IVP ONE (16:28)
[2021-01-21] MEDS ORDERED: Lidocaine -MPF 2% 5 ML VIAL ONE (16:40)
[2021-01-21 16:57] LABS: Hematocrit 29.4 % (35.3-44.9); Hemoglobin 9.4 g/dL (11.5-15.4)
[2021-01-21 17:01] LABS: INR 1.2; Prothrombin Time 14.2 Seconds (9.4-12.1)
[2021-01-21] MEDS ORDERED: *HR* EPINEPHrine 1 MG/10 ML SYRINGE INTRATRACH PRN ×2 (17:08→17:19)
[2021-01-21 20:52] LABS: Hematocrit 21.2 % (35.3-44.9)
[2021-01-21] MEDS: diazePAM 5 MG TABLET PO SCH (21:29)
[2021-01-21] MEDS ORDERED: 0.9 % Sodium Chloride 250 ML IVC SCH (21:30)
[2021-01-21] MEDS ORDERED: 0.9 % Sodium Chloride 250 ML IVC ONE (21:36)
[2021-01-22 02:39] LABS: Calcium 9.2 mg/dL (8.6-10.3); Potassium 4.3 mEq/L (3.5-5.1)
[2021-01-22 03:25] LABS: Basophils % 0.3 %; Eosinophils # 0.2 K/mcL (0.0-0.6); Eosinophils % 2.2 %; Hematocrit 26.4 % (35.3-44.9); Hemoglobin 8.6 g/dL (11.5-15.4); Immature Granulocytes % 1.7 % (0-4); Lymphocytes # 1.3 K/mcL (0.6-4.6); Lymphocytes % 14.9 %; Mean Corpuscular HGB Conc 32.6 g/dL (31.6-35.5); Mean Corpuscular Hemoglobin 36.1 pg (28.0-33.3); Mean Corpuscular Volume 110.9 fL (83.0-100.0); Mean Platelet Volume 10.9 fL (9.4-12.4); Monocytes # 0.8 K/mcL (0.0-1.3); Monocytes % 9.7 %; Neutrophils # 6.1 K/mcL (1.6-8.9); Nucleated Red Blood Cells 0.2 /100 WBC (0); Platelet Count 120 K/mcL (140-400); Red Blood Count 2.38 M/mcL (3.82-4.97); Red Cell Distribution Width 18.6 % (11.5-14.5); Segmented Neutrophils % 71.2 %; White Blood Count 8.6 K/mcL (4.3-11.1)
[2021-01-22 03:51] LABS: Anisocytosis 1+ (Not Present); Macrocytosis Present (Not Present); Platelet Estimate Slight Decrease (Normal)
[2021-01-22] MEDS: Insulin LISPRO 300 UNITS/3 ML VIAL SUBQ SCH ×4 (07:32→20:59)
[2021-01-22] MEDS: Lactobacillus 1 EACH CAP.SPRINK PO SCH ×2 (07:43→20:59)
[2021-01-22] MEDS: PREDNISOLONE 1% OP SCH ×4 (07:47→20:59)
[2021-01-22] MEDS: Sodium Chloride 5% OPTH 3.5 GM TUBE OP SCH ×4 (07:47→20:59)
[2021-01-22] MEDS: OPTH OP SCH ×4 (07:47→20:59)
[2021-01-22] MEDS: GANCICLOVIR OP SCH ×4 (07:47→21:00)
[2021-01-22 10:12] LABS: Hematocrit 26.3 % (35.3-44.9); Hemoglobin 8.5 g/dL (11.5-15.4)
[2021-01-22] MEDS: 0.9 % Sodium Chloride 250 ML IVC PRN ×2 (10:16→10:36)
[2021-01-22] MEDS: Acetaminophen 325 MG TABLET PO PRN (11:22)
[2021-01-22] MEDS: valACYclovir 500 MG TABLET PO SCH (15:50)
[2021-01-22 16:19] LABS: Hematocrit 25.2 % (35.3-44.9); Hemoglobin 8.1 g/dL (11.5-15.4)
[2021-01-22] MEDS: diazePAM 5 MG TABLET PO SCH (20:59)
[2021-01-22 21:42] LABS: Hematocrit 23.9 % (35.3-44.9); Hemoglobin 7.8 g/dL (11.5-15.4)
[2021-01-23 06:11] LABS: Basophils # 0.1 K/mcL (0.0-0.2); Basophils % 0.5 %; Eosinophils # 0.4 K/mcL (0.0-0.6); Hematocrit 25.4 % (35.3-44.9); Hemoglobin 8.3 g/dL (11.5-15.4); Immature Granulocytes % 3.8 % (0-4); Lymphocytes # 2.3 K/mcL (0.6-4.6); Lymphocytes % 17.7 %; Mean Corpuscular HGB Conc 32.7 g/dL (31.6-35.5); Mean Corpuscular Hemoglobin 36.2 pg (28.0-33.3); Mean Corpuscular Volume 110.9 fL (83.0-100.0); Mean Platelet Volume 10.7 fL (9.4-12.4); Monocytes # 1.2 K/mcL (0.0-1.3); Neutrophils # 8.5 K/mcL (1.6-8.9); Nucleated Red Blood Cells 0.2 /100 WBC (0); Platelet Count 149 K/mcL (140-400); Red Blood Count 2.29 M/mcL (3.82-4.97); Red Cell Distribution Width 18.6 % (11.5-14.5); White Blood Count 12.8 K/mcL (4.3-11.1)
[2021-01-23 06:29] LABS: Potassium 4.2 mEq/L (3.5-5.1)
[2021-01-23 06:36] LABS: Anisocytosis 1+ (Not Present); Macrocytosis Present (Not Present); Platelet Estimate Normal (Normal); Polychromasia 1+ (Not Present)
[2021-01-23] MEDS: Insulin LISPRO 300 UNITS/3 ML VIAL SUBQ SCH ×4 (09:41→21:02)
[2021-01-23] MEDS: Lactobacillus 1 EACH CAP.SPRINK PO SCH ×2 (09:41→20:11)
[2021-01-23] MEDS: Acetaminophen 325 MG TABLET PO PRN (09:50)
[2021-01-23] MEDS: GANCICLOVIR OP SCH ×4 (09:53→20:12)
[2021-01-23] MEDS: Sodium Chloride 5% OPTH 3.5 GM TUBE OP SCH ×4 (09:53→20:11)
[2021-01-23] MEDS: OPTH OP SCH ×4 (09:53→20:12)
[2021-01-23] MEDS: PREDNISOLONE 1% OP SCH ×4 (09:53→20:12)
[2021-01-23 14:36] LABS: Hematocrit 24.9 % (35.3-44.9); Hemoglobin 8.1 g/dL (11.5-15.4)
[2021-01-23] MEDS: valACYclovir 500 MG TABLET PO SCH (16:48)
[2021-01-23] MEDS: Melatonin 3 MG TABLET PO PRN (20:11)
[2021-01-23] MEDS: diazePAM 5 MG TABLET PO SCH (20:11)
[2021-01-23 21:19] LABS: Hematocrit 25.5 % (35.3-44.9); Hemoglobin 8.3 g/dL (11.5-15.4)
[2021-01-24 06:16] LABS: Basophils # 0.1 K/mcL (0.0-0.2); Basophils % 0.6 %; Eosinophils # 0.4 K/mcL (0.0-0.6); Eosinophils % 3.1 %; Hematocrit 24.6 % (35.3-44.9); Immature Granulocytes % 3.2 % (0-4); Lymphocytes # 1.8 K/mcL (0.6-4.6); Lymphocytes % 14.4 %; Mean Corpuscular HGB Conc 32.5 g/dL (31.6-35.5); Mean Corpuscular Hemoglobin 36.5 pg (28.0-33.3); Mean Corpuscular Volume 112.3 fL (83.0-100.0); Mean Platelet Volume 10.5 fL (9.4-12.4); Monocytes % 7.9 %; Neutrophils # 8.8 K/mcL (1.6-8.9); Nucleated Red Blood Cells 0.2 /100 WBC (0); Platelet Count 157 K/mcL (140-400); Red Blood Count 2.19 M/mcL (3.82-4.97); Red Cell Distribution Width 18.4 % (11.5-14.5); Segmented Neutrophils % 70.8 %; White Blood Count 12.4 K/mcL (4.3-11.1)
[2021-01-24 06:24] LABS: Calcium 9.9 mg/dL (8.6-10.3); Potassium 4.7 mEq/L (3.5-5.1)
[2021-01-24] MEDS: Insulin LISPRO 300 UNITS/3 ML VIAL SUBQ SCH ×3 (07:39→16:36)
[2021-01-24] MEDS ORDERED: 0.9 % Sodium Chloride 250 ML IVC PRN (07:41)
[2021-01-24] MEDS ORDERED: Albumin 25% 25gram/100mL 25 GM/100 ML IV.SOLN IVPB PRN (07:41)
[2021-01-24] MEDS ORDERED: 0.9 % Sodium Chloride 1,000 ML PRIME SCH (07:45)
[2021-01-24] MEDS: Lactobacillus 1 EACH CAP.SPRINK PO SCH (07:55)
[2021-01-24] MEDS: PREDNISOLONE 1% OP SCH ×3 (07:56→16:32)
[2021-01-24] MEDS: Sodium Chloride 5% OPTH 3.5 GM TUBE OP SCH ×3 (07:56→16:32)
[2021-01-24] MEDS: OPTH OP SCH ×3 (07:56→16:32)
[2021-01-24] MEDS: GANCICLOVIR OP SCH ×3 (07:56→16:32)
[2021-01-24 08:36] LABS: Anisocytosis 3+ (Not Present); Macrocytosis Present (Not Present)
[2021-01-24 08:37] LABS: Platelet Estimate Normal (Normal)
[2021-01-24 15:46] LABS: Adenovirus Not Detected (Not Detect); Bordetella Pertussis Not Detected (Not Detect); Chlamydophila pneumoniae Not Detected (Not Detect); Coronavirus 229E Not Detected (Not Detect); Coronavirus HKU1 Not Detected (Not Detect); Coronavirus NL63 Not Detected (Not Detect); Coronavirus OC43 Not Detected (Not Detect); Human Metapneumovirus Not Detected (Not Detect); Human Rhinovirus/Enterovirus Not Detected (Not Detect); Influenza A Subtype 2009 H1 Not Detected (Not Detect); Influenza B Not Detected (Not Detect); Mycoplasma pneumoniae Not Detected (Not Detect); Parainfluenza Virus 1 Not Detected (Not Detect); Parainfluenza Virus 2 Not Detected (Not Detect); Parainfluenza Virus 3 Not Detected (Not Detect); Parainfluenza Virus 4 Not Detected (Not Detect); Respiratory Syncytial Virus Not Detected (Not Detect); SARS-CoV-2 Not Detected (Not Detect)
[2021-01-24] MEDS: valACYclovir 500 MG TABLET PO SCH (16:32)
[2021-01-24 18:53] VITALS: BP 102/63; PULSE 68; TEMP 99.1; O2SAT 97
== END 2021-01-24 19:24 | DRG 193 ==
LOC: EMEROOARM 06:14 → 3BNU 06:14 → 2ANU 06:14 → SUATTDRO 13:20 → 2ANU 13:49 → SUATTDRO 01-15 19:56
PROVIDERS: ADMIT Internal Medicine; ATTEND Family Medicine

== ENCOUNTER 2021-01-31 20:21 | Inpatient (IN) ==
[2021-01-31 21:33] LABS: Basophils # 0.1 K/mcL (0.0-0.2); Basophils % 0.6 %; Eosinophils # 0.3 K/mcL (0.0-0.6); Eosinophils % 3.4 %; Hematocrit 28.4 % (35.3-44.9); Hemoglobin 9.3 g/dL (11.5-15.4); Immature Granulocytes % 0.9 % (0-4); Lymphocytes % 22.3 %; Mean Corpuscular HGB Conc 32.7 g/dL (31.6-35.5); Mean Corpuscular Volume 115.9 fL (83.0-100.0); Mean Platelet Volume 10.6 fL (9.4-12.4); Monocytes # 0.8 K/mcL (0.0-1.3); Monocytes % 9.4 %; Neutrophils # 5.6 K/mcL (1.6-8.9); Platelet Count 158 K/mcL (140-400); Red Blood Count 2.45 M/mcL (3.82-4.97); Red Cell Distribution Width 19.7 % (11.5-14.5); Segmented Neutrophils % 63.4 %; White Blood Count 8.8 K/mcL (4.3-11.1)
[2021-01-31 21:53] LABS: Anisocytosis 1+ (Not Present); Macrocytosis Present (Not Present)
[2021-01-31 21:54] LABS: Platelet Estimate Normal (Normal)
[2021-01-31 21:55] LABS: Alanine Aminotransferase 8 Units/L (7-52); Albumin 3.8 g/dL (3.5-5.7); Albumin/Globulin Ratio 1.6 (1.1-2.2); Alkaline Phosphatase 72 Units/L (34-104); Aspartate Amino Transferase 14 Units/L (13-39); BUN/Creatinine Ratio 5 (6-26); Bilirubin,Total 0.6 mg/dL (0.3-1.0); Blood Urea Nitrogen 35 mg/dL (8-23); Calcium 9.6 mg/dL (8.6-10.3); Carbon Dioxide 26 mEq/L (23-29); Chloride 92 mEq/L (98-107); Globulin 2.4 g/dL (2.4-3.5); Glucose 154 mg/dL (70-105); Magnesium 1.7 mg/dL (1.6-2.6); Osmolality,Calculated 285 (280-300); Phosphorous 6.5 mg/dL (2.7-4.5); Potassium 3.7 mEq/L (3.5-5.1); Sodium 132 mEq/L (136-145); Total Protein 6.2 g/dL (6.4-8.9); Troponin I < 0.03 ng/mL (< 0.04); eGFR For African Americans 7 (> 60); eGFR For Non-African Americans 6 (> 60)
[2021-02-01] MEDS ORDERED: Benzonatate 100 MG CAPSULE PO PRN (00:39)
[2021-02-01] MEDS ORDERED: Acetaminophen 325 MG TABLET PO PRN (00:46)
[2021-02-01] MEDS ORDERED: Naloxone 0.4 MG/ML INJ IVP PRN (00:46)
[2021-02-01] MEDS ORDERED: D5% in Water 1,000 ML IVC PRN (01:15)
[2021-02-01] MEDS ORDERED: Dextrose Gel 15 GM/37.5 ML TUBE PO PRN ×2 (01:15)
[2021-02-01] MEDS ORDERED: *HR* Dextrose 50 % in Water (Syg) 50 ML SYRINGE IVP PRN (01:15)
[2021-02-01] MEDS: Furosemide 40 MG/4 ML VIAL IVP ONE ×2 (02:04→02:29)
[2021-02-01 05:50] LABS: Basophils # 0.1 K/mcL (0.0-0.2); Basophils % 0.7 %; Eosinophils # 0.3 K/mcL (0.0-0.6); Eosinophils % 3.5 %; Hemoglobin 8.6 g/dL (11.5-15.4); Immature Granulocytes % 0.5 % (0-4); Lymphocytes # 1.9 K/mcL (0.6-4.6); Lymphocytes % 25.3 %; Mean Corpuscular HGB Conc 33.1 g/dL (31.6-35.5); Mean Corpuscular Hemoglobin 38.1 pg (28.0-33.3); Mean Platelet Volume 10.6 fL (9.4-12.4); Monocytes # 0.7 K/mcL (0.0-1.3); Monocytes % 9.1 %; Neutrophils # 4.5 K/mcL (1.6-8.9); Platelet Count 143 K/mcL (140-400); Red Blood Count 2.26 M/mcL (3.82-4.97); Red Cell Distribution Width 19.5 % (11.5-14.5); Segmented Neutrophils % 60.9 %; White Blood Count 7.4 K/mcL (4.3-11.1)
[2021-02-01 06:05] LABS: Prothrombin Time 11.4 Seconds (9.4-12.1)
[2021-02-01 06:10] LABS: Albumin 3.6 g/dL (3.5-5.7); Albumin/Globulin Ratio 1.7 (1.1-2.2); Bilirubin,Total 0.6 mg/dL (0.3-1.0); Calcium 9.5 mg/dL (8.6-10.3); Globulin 2.1 g/dL (2.4-3.5); Potassium 3.9 mEq/L (3.5-5.1); Total Protein 5.7 g/dL (6.4-8.9)
[2021-02-01] MEDS: SODIUM CHLORIDE OP SCH ×4 (08:33→22:00)
[2021-02-01] MEDS: GANCICLOVIR OP SCH ×4 (08:33→22:00)
[2021-02-01] MEDS: PrednisoLONE Acetate 1% Opth 5 ML BOTTLE LEFT EYE SCH ×4 (08:33→21:59)
[2021-02-01] MEDS: Renal Vitamin 1 CAP CAPSULE PO SCH (08:33)
[2021-02-01] MEDS: allopurinoL 100 MG TABLET PO SCH (08:33)
[2021-02-01] MEDS ORDERED: valACYclovir 500 MG TABLET PO SCH (09:00)
[2021-02-01] MEDS: Insulin LISPRO 300 UNITS/3 ML VIAL SUBQ SCH ×3 (09:18→17:05)
[2021-02-01] MEDS ORDERED: Perflutren Lipid Microsphere 1.3 ML in 0.9 % Sodium Chloride 8.7 ML IVP PRN (10:24)
[2021-02-01] MEDS ORDERED: 0.9 % Sodium Chloride 1,000 ML IVC SCH (10:30)
[2021-02-01] MEDS: valACYclovir 500 MG TABLET PO SCH (17:42)
[2021-02-01] MEDS ORDERED: Albumin 25% 25gram/100mL 25 GM/100 ML IV.SOLN IVPB ONE (22:54)
[2021-02-02 03:55] LABS: Basophils % 0.6 %; Eosinophils # 0.2 K/mcL (0.0-0.6); Eosinophils % 2.6 %; Hematocrit 24.9 % (35.3-44.9); Hemoglobin 8.3 g/dL (11.5-15.4); Immature Granulocytes % 0.5 % (0-4); Lymphocytes # 1.2 K/mcL (0.6-4.6); Lymphocytes % 19.8 %; Mean Corpuscular HGB Conc 33.3 g/dL (31.6-35.5); Mean Corpuscular Hemoglobin 38.6 pg (28.0-33.3); Mean Corpuscular Volume 115.8 fL (83.0-100.0); Mean Platelet Volume 10.7 fL (9.4-12.4); Monocytes # 0.5 K/mcL (0.0-1.3); Platelet Count 134 K/mcL (140-400); Red Blood Count 2.15 M/mcL (3.82-4.97); Red Cell Distribution Width 19.4 % (11.5-14.5); Segmented Neutrophils % 68.5 %; White Blood Count 6.2 K/mcL (4.3-11.1)
[2021-02-02 04:01] LABS: Neutrophils # 4.3 K/mcL (1.6-8.9)
[2021-02-02 04:09] LABS: Calcium 9.5 mg/dL (8.6-10.3); Magnesium 1.7 mg/dL (1.6-2.6); Potassium 4.5 mEq/L (3.5-5.1)
[2021-02-02] MEDS ORDERED: 0.9 % Sodium Chloride 250 ML IVC PRN (08:54)
[2021-02-02] MEDS: PrednisoLONE Acetate 1% Opth 5 ML BOTTLE LEFT EYE SCH ×4 (09:00→22:17)
[2021-02-02] MEDS ORDERED: Gabapentin 300 MG CAPSULE PO SCH ×2 (09:00→21:00)
[2021-02-02] MEDS ORDERED: 0.9 % Sodium Chloride 1,000 ML PRIME SCH (09:00)
[2021-02-02] MEDS ORDERED: Aspirin 325 MG TABLET PO ONE (09:42)
[2021-02-02] MEDS ORDERED: Albumin 25% 25gram/100mL 25 GM/100 ML IV.SOLN IVPB ONE (09:43)
[2021-02-02] MEDS ORDERED: Albumin 25% 25gram/100mL 25 GM/100 ML IV.SOLN ONE (09:44)
[2021-02-02] MEDS ORDERED: Isovue-370 500 ML BOTTLE IVP ONE (10:26)
[2021-02-02] MEDS ORDERED: Ringers Solution, Lactated 1,000 ML ONE (11:53)
[2021-02-02] MEDS ORDERED: Ringers Solution, Lactated 1,000 ML IVC ONE (11:56)
[2021-02-02 12:26] LABS: Hematocrit 26.5 % (35.3-44.9); Hemoglobin 8.5 g/dL (11.5-15.4); Mean Corpuscular HGB Conc 32.1 g/dL (31.6-35.5); Mean Corpuscular Hemoglobin 37.8 pg (28.0-33.3); Mean Corpuscular Volume 117.8 fL (83.0-100.0); Mean Platelet Volume 10.7 fL (9.4-12.4); Monocytes # 0.5 K/mcL (0.0-1.3); Platelet Count 122 K/mcL (140-400); Red Blood Count 2.25 M/mcL (3.82-4.97); Red Cell Distribution Width 19.7 % (11.5-14.5); White Blood Count 5.9 K/mcL (4.3-11.1)
[2021-02-02 12:33] LABS: INR 1.1; Prothrombin Time 12.4 Seconds (9.4-12.1)
[2021-02-02 12:33] LABS: VBG HCO3 22 mEq/L (21-27); VBG PCO2 38 mmHg (41-51); VBG PH 7.36 pH Units (7.32-7.42); VBG PO2 111 mmHg (25-50)
[2021-02-02 12:45] LABS: Alanine Aminotransferase 5 Units/L (7-52); Albumin 3.9 g/dL (3.5-5.7); Alkaline Phosphatase 60 Units/L (34-104); Aspartate Amino Transferase 10 Units/L (13-39); BUN/Creatinine Ratio 5 (6-26); Bilirubin,Direct 0.2 mg/dL (0.0-0.2); Bilirubin,Indirect 0.5 mg/dL (0.0-1.0); Bilirubin,Total 0.7 mg/dL (0.3-1.0); Blood Urea Nitrogen 46 mg/dL (8-23); Calcium 9.5 mg/dL (8.6-10.3); Carbon Dioxide 22 mEq/L (23-29); Chloride 94 mEq/L (98-107); Glucose 130 mg/dL (70-105); Magnesium 1.8 mg/dL (1.6-2.6); Osmolality,Calculated 284 (280-300); Phosphorous 8.4 mg/dL (2.7-4.5); Potassium 4.7 mEq/L (3.5-5.1); Sodium 130 mEq/L (136-145); Total Protein 5.9 g/dL (6.4-8.9); eGFR For African Americans 5 (> 60); eGFR For Non-African Americans 4 (> 60)
[2021-02-02 12:46] LABS: Troponin I < 0.03 ng/mL (< 0.04)
[2021-02-02] MEDS ORDERED: Acetaminophen 325 MG RECTAL SUPP RC ONE (12:53)
[2021-02-02] MEDS: Insulin LISPRO 300 UNITS/3 ML VIAL SUBQ SCH ×5 (13:21→22:16)
[2021-02-02] MEDS: SODIUM CHLORIDE OP SCH ×4 (13:23→22:17)
[2021-02-02] MEDS: GANCICLOVIR OP SCH ×4 (13:24→22:17)
[2021-02-02] MEDS: Renal Vitamin 1 CAP CAPSULE PO SCH (13:26)
[2021-02-02] MEDS: allopurinoL 100 MG TABLET PO SCH (13:28)
[2021-02-02 14:07] LABS: Basophils # 0.1 K/mcL (0.0-0.2); Lymphocytes # 1.2 K/mcL (0.6-4.6); Neutrophils # 4.1 K/mcL (1.6-8.9); Platelet Estimate Slight Decrease (Normal)
[2021-02-02 14:08] LABS: Anisocytosis 1+ (Not Present); Macrocytosis Present (Not Present)
[2021-02-02] MEDS: Ringers Solution, Lactated 1,000 ML IVC SCH ×2 (14:14→22:16)
[2021-02-02] MEDS: Albumin 25% 25gram/100mL 25 GM/100 ML IV.SOLN IVPB SCH (16:23)
[2021-02-02] MEDS: valACYclovir 500 MG TABLET PO SCH (16:32)
[2021-02-03] MEDS: Insulin LISPRO 300 UNITS/3 ML VIAL SUBQ SCH ×6 (00:47→12:27)
[2021-02-03] MEDS: Albumin 25% 25gram/100mL 25 GM/100 ML IV.SOLN IVPB SCH ×2 (01:22→12:26)
[2021-02-03 01:46] LABS: Immature Granulocytes % 0.4 % (0-4); Red Blood Count 2.29 M/mcL (3.82-4.97); Red Cell Distribution Width 19.6 % (11.5-14.5)
[2021-02-03 01:48] LABS: Basophils % 0.7 %; Eosinophils # 0.2 K/mcL (0.0-0.6); Hematocrit 26.2 % (35.3-44.9); Hemoglobin 8.6 g/dL (11.5-15.4); Immature Platelets 4.8 % (1.1-6.1); Lymphocytes % 18.7 %; Mean Corpuscular HGB Conc 32.8 g/dL (31.6-35.5); Mean Corpuscular Hemoglobin 37.6 pg (28.0-33.3); Mean Corpuscular Volume 114.4 fL (83.0-100.0); Mean Platelet Volume 10.8 fL (9.4-12.4); Monocytes # 0.5 K/mcL (0.0-1.3); Monocytes % 8.5 %; Neutrophils # 3.7 K/mcL (1.6-8.9); Platelet Count 124 K/mcL (140-400); Segmented Neutrophils % 68.7 %; White Blood Count 5.4 K/mcL (4.3-11.1)
[2021-02-03 02:08] LABS: Albumin 3.9 g/dL (3.5-5.7); Bilirubin,Direct 0.2 mg/dL (0.0-0.2); Bilirubin,Indirect 0.5 mg/dL (0.0-1.0); Bilirubin,Total 0.7 mg/dL (0.3-1.0); Calcium 9.7 mg/dL (8.6-10.3); Magnesium 1.7 mg/dL (1.6-2.6); Phosphorous 8.7 mg/dL (2.7-4.5); Potassium 4.8 mEq/L (3.5-5.1); Total Protein 5.9 g/dL (6.4-8.9)
[2021-02-03 02:19] LABS: Thyroid Stimulating Hormone 5.559 mcIU/mL (0.340-5.600)
[2021-02-03 02:31] LABS: Folate > 22.3 ng/mL (3.0-16.0); Vitamin B12 441 pg/mL (250-1100)
[2021-02-03] MEDS ORDERED: Gabapentin 300 MG CAPSULE PO SCH (09:00)
[2021-02-03] MEDS: SODIUM CHLORIDE OP SCH ×2 (10:27→12:28)
[2021-02-03] MEDS: GANCICLOVIR OP SCH ×2 (10:27→12:28)
[2021-02-03] MEDS: allopurinoL 100 MG TABLET PO SCH (10:27)
[2021-02-03] MEDS: Renal Vitamin 1 CAP CAPSULE PO SCH (10:27)
[2021-02-03] MEDS: PrednisoLONE Acetate 1% Opth 5 ML BOTTLE LEFT EYE SCH ×2 (11:14→12:28)
[2021-02-03 19:26] VITALS: BP 104/67; PULSE 74; TEMP 97.4; O2SAT 96
== END 2021-02-03 14:32 | disposition hospice, inpatient (51) | DRG 64 ==
LOC: EMEROOARM 20:21 → 2ANU 20:21 → SUATTDRO 02-01 00:05 → 2ANU 02-01 00:35
PROVIDERS: ADMIT Family Medicine; ATTEND Pharmacist

== ENCOUNTER 2021-02-03 12:36 | Inpatient (IN) ==
[2021-02-03] MEDS ORDERED: *HR* LORazepam Oral Conc 2 MG/ML PO PRN (13:07)
[2021-02-03] MEDS ORDERED: *HR* LORazepam 2 MG/ML VIAL IVP PRN (13:07)
[2021-02-03] MEDS ORDERED: Haloperidol Lactate 5 MG/ML VIAL IVP PRN (13:07)
[2021-02-03] MEDS ORDERED: Saliva Stimulant 44.3ml BOTTLE PO PRN (13:10)
[2021-02-04] MEDS ORDERED: Scopolamine Patch 1.5 MG PATCH.TD72 TD SCH (12:45)
[2021-02-04] MEDS: Atropine 1% Opth Drops 100 DROP/5 ML BOTTLE SL PRN ×2 (15:33→20:18)
== END 2021-02-05 00:12 | disposition expired | DRG 951 ==
LOC: 2ANU 14:34
PROVIDERS: ADMIT Internal Medicine Hospice and Palliative Medicine; ATTEND Internal Medicine Hospice and Palliative Medicine